=== PATIENT | male | born 1950 | race Caucasian/White ===

== ENCOUNTER 2017-08-02 08:40 | Emergency (ER) | payer MEDICARE ==
[~2017-08-02] VITALS: Ht 177.8 cm; Wt 93.0 kg
[~2017-08-02 08:40] MED LIST: COUM10TA PO; CYCL5TAB PO; HYDR-3533 PO; ZITH250T PO
[2017-08-02 08:42] VITALS: BP 143/73; PULSE 95; RESP 18; TEMP 97.7; O2SAT 95
[2017-08-02] MEDS ORDERED: SODIUM CHLORIDE 0.9% FLUSH 10 ML FLUSH IVF PRN (09:30)
[2017-08-02 09:49] LABS: AUTOMATED NEUTROPHIL # 2.7 TH/MM3 (1.8-7.7); BASOPHIL % 0.8 % (0.0-2.0); EOSINOPHIL # 0.5 TH/MM3 (0-0.4); EOSINOPHIL % 9.4 % (0.0-4.0); HEMATOCRIT 37.5 % (39.0-51.0); HEMO FLAGS DIFF FINAL; LYMPHOCYTE # 1.9 TH/MM3 (1.0-4.8); MEAN CELL VOLUME 116.8 FL (80.0-100.0); MEAN CORPUSCULAR HEMOGLOBIN 41.1 PG (27.0-34.0); MEAN CORPUSCULAR HGB CONC 35.2 % (32.0-36.0); MONO % 10.2 % (0.0-8.0); NEUT % 46.6 % (16.0-70.0); PLATELET COUNT 109 TH/MM3 (150-450); RED BLOOD COUNT 3.21 MIL/MM3 (4.50-5.90); RED CELL DISTRIBUTION WIDTH 16.8 % (11.6-17.2); WHITE BLOOD COUNT 5.8 TH/MM3 (4.0-11.0)
[2017-08-02 09:58] LABS: INTERNATIONAL NORMALIZED RATIO 1.3 RATIO; PROTHROMBIN TIME - PATIENT 14.8 SEC (9.8-11.6)
[2017-08-02 09:59] LABS: APTT (PATIENT) 29.5 SEC (24.3-30.1)
[2017-08-02 10:12] LABS: ANION GAP 7 MEQ/L (5-15); BICARBONATE 25.9 MEQ/L (21.0-32.0); BLOOD UREA NITROGEN 15 MG/DL (7-18); CHLORIDE 104 MEQ/L (98-107); GLOMERULAR FILTRATION RATE 96 ML/MIN (>89); MAGNESIUM 1.8 MG/DL (1.5-2.5); POTASSIUM 3.2 MEQ/L (3.5-5.1); SODIUM (NA) 137 MEQ/L (136-145)
[2017-08-02 10:22] LABS: CREATINE KINASE 49 U/L (39-308)
--- NOTE | 2017-08-02 10:27 | RADRPT ---
EXAM DATE/TIME: 08/02/2017 09:43 [facility] COMPARISON: CT THORAX W/O CONTRAST, December 31, 2014, 7:05. INDICATIONS : Trauma, fall. Left sided chest pain. RADIATION DOSE: 5.10 CTDIvol (mGy) ; Combined studies - Thorax/Abdomen/Pelvis MEDICAL HISTORY : Cardiovascular disease. SURGICAL HISTORY : Cholecystectomy. Stomach stapled. ENCOUNTER: Initial ACUITY: 1 day PAIN SCALE: 4/10 LOCATION: Left chest TECHNIQUE: Volumetric scanning of the chest was performed. Using automated exposure control and adjustment of t he mA and/or kV according to patient size, radiation dose was kept as low as reasonably achievable to obtain optimal diagnostic quality images. DICOM format image data is available electronically for r eview and comparison. Follow-up recommendations for detected pulmonary nodules are based at a minimum on nodule size and pa tient risk factors according to Fleischner Society Guidelines. FINDINGS: LUNGS: Consolidating airspace disease is identified in the right lower lobe. There is elevation of the right hemidiaphragm. Left lung is clear. PLEURAE: Small right pleural effusion. MEDIASTINUM: The heart and great vessels demonstrate no acute abnormality. Mild calcific coronary artery disease i s noted. There is no mediastinal or hilar lymphadenopathy. AXILLAE: Within normal limits. No lymphadenopathy. MUSCULOSKELETAL: Healed right-sided rib fractures are identified. There is no evidence of acute displaced rib fracture . MISCELLANEOUS: The visualized upper abdominal organs demonstrate no acute abnormality. CONCLUSION: 1. Consolidating infiltrate and parapneumonic effusion in the right lower lobe. 2. Old right rib fractures without evidence of acute displaced fracture. 3. Elevation of the right hemidiaphragm. Ricky Love MD on August 02, 2017 at 10:21 Board Certified Radiologist. This report was verified electronically.
--- NOTE | 2017-08-02 10:28 | RADRPT ---
EXAM DATE/TIME: 08/02/2017 09:51 [facility] COMPARISON: No previous studies available for comparison. INDICATIONS : Trauma, fall. Lower left sided back pain. ORAL CONTRAST: No oral contrast ingested. RADIATION DOSE: 5.10 CTDIvol (mGy) ; Combined studies - Thorax/Abdomen/Pelvis MEDICAL HISTORY : Cardiovascular disease. SURGICAL HISTORY : Cholecystectomy. Stomach stapled. ENCOUNTER: Initial ACUITY: 1 day PAIN SCALE: 4/10 LOCATION: Left abdomen/pelvis TECHNIQUE: Volumetric scanning of the abdomen and pelvis was performed. Using automated exposure control and ad justment of the mA and/or kV according to patient size, radiation dose was kept as low as reasonably achievable to obtain optimal diagnostic quality images. DICOM format image data is available electro nically for review and comparison. FINDINGS: LOWER LUNGS: See the CT of the thorax dictated separately. LIVER: Homogeneous density without lesion. There is no dilation of the biliary tree. Gallbladder is surgica lly absent. SPLEEN: Normal size without lesion. PANCREAS: Within normal limits. KIDNEYS: Normal in size and shape. There is no mass, stone, or hydronephrosis. ADRENAL GLANDS: Within normal limits. VASCULAR: There is no aortic aneurysm. BOWEL/MESENTERY: Prior gastric bypass surgery. The stomach, small bowel, and colon demonstrate no acute abnormality. There is no free intraperitoneal air. A trace amount of ascites is seen. ABDOMINAL WALL: Is 6.5 x 2.9 cm soft tissue hematoma seen involving the left posterior hip. Linear calcification seen involving the anterior abdominal wall with a 4.3 x 1.6 cm elliptical high attenuation focus likely r elated to a small hematoma anteriorly as well. RETROPERITONEUM: There is no lymphadenopathy. BLADDER: No wall thickening or mass. REPRODUCTIVE: Within normal limits. INGUINAL: Bilateral inguinal hernias containing fat. A small amount of fluid is seen within the right inguinal hernia. MUSCULOSKELETAL: Within normal limits for patient age. Old right-sided inferior fractures. A degenerative spine. CONCLUSION: 1. See the CT of the thorax dictated separately. 2. Soft tissue hematomas involve left posterior hip and anterior bowel wall. 3. Prior gastric bypass. 4. Trace amount of ascites. 5. Prior cholecystectomy. 6. Bilateral inguinal hernias. Myles Hernandez Jr., MD on August 02, 2017 at 10:21 Board Certified Radiologist. This report was verified electronically.
[2017-08-02] MEDS ORDERED: cefTRIAXone INJ 1,000 MG in SODIUM CHLORIDE 0.9% INJ 100 ML IV ONE (10:45)
[2017-08-02] MEDS ORDERED: AZITHROMYCIN INJ 500 MG in SODIUM CHLOR 0.9% 250 ML INJ 250 ML IV ONE (10:45)
[2017-08-02] MEDS ORDERED: POTASSIUM CHLORIDE 20 MEQ CONTROLLED RELEASE TAB PO ONE (11:00)
[2017-08-02 11:49] VITALS: BP 122/65; PULSE 87; RESP 18; O2SAT 97
[2017-08-02] MEDS ORDERED: LEVA500T20 PO (12:23)
--- NOTE | 2017-08-02 12:23 | PD ---
HPI Chief Complaint: Edema Time Seen by Provider: 09:18 Travel History International Travel<30 days: No Contact w/Intl Traveler<30days: No Traveled to known affect area: No History of Present Illness HPI 66-year-old male came to the emergency room with history of lower back pain and bilateral feet pain after a trip and fall 2-3 days ago. Patient says he was walking on the sidewalk and there was a hole that he did not notice and his foot got caught and he tripped and fell. He did not make much of it at that time. The next morning when he woke up he noticed bruising on his left buttock area. Since then the pain has been worsening. He has been having difficulty ambulating because of this. No history of syncopal episode. Pain is worse upon movement and ambulation. He has had bilateral pedal edema for past 1 month. In fact he was in the emergency room at [facility] where blood tests were done and he was given a dose of Lasix. He was discharged home to follow up with a primary care but he could not. Patient says after the Lasix the swelling got better but then came back again. No history of shortness of breath. Vital signs are stable. Patient has been taking Advil at home for the pain. [facility] Past Medical History Narrative Medical List of his past medical, surgical, social and family history is reviewed from the nursing note. Atrial Fibrillation: Yes Heart Rhythm Problems: Yes (AFIB, FAST HEART RATE) Cardiovascular Problems: Yes Diminished Hearing: No Immunizations Current: Yes Tetanus Vaccination: > 5 Years Influenza Vaccination: No Past Surgical History Abdominal Surgery: Yes ("STOMACH STAPLED") Cholecystectomy: Yes Other Surgery: Yes (RIGHT THUMB AMPUTATED) Social History Alcohol Use: Yes (DAILY) Tobacco Use: No Substance Use: No Allergies-Medications (Allergen,Severity, Reaction): Coded Allergies: No Known Allergies (Unverified , 08/02/17) Comments No known drug allergies. Reported Meds & Prescriptions Reported Meds & Active Scripts Active Medical Compression Elastic Stockings 1 Mis Mis Ea .ROUTE DIRECTED Wear the stockings at all times especially when you a sitting or walking Levaquin (Levofloxacin) 500 Mg Tablet 500 Mg PO DAILY Narrative Medication List of his home medications reviewed from the nursing note. Review of Systems Except as stated in HPI: all other systems reviewed are Neg Musculoskeletal: Positive: Myalgias, Arthralgias, Pain Skin: Positive Other (ecchymosis) Physical Exam Narrative GENERAL: Awake, alert, moderate distress SKIN: Focused skin assessment warm/dry. Pale. Large ecchymosis on the left buttock area HEAD: Atraumatic. Normocephalic. EYES: Pupils equal and round. No scleral icterus. No injection or drainage. ENT: No nasal bleeding or discharge. Mucous membranes pink and moist. NECK: Trachea midline. No JVD. CARDIOVASCULAR: Regular rate and rhythm. No murmur appreciated. RESPIRATORY: No accessory muscle use. Clear to auscultation. Breath sounds equal bilaterally. GASTROINTESTINAL: Abdomen soft, non-tender, nondistended. Hepatic and splenic margins not palpable. MUSCULOSKELETAL: No obvious deformities. No clubbing. No cyanosis. Bilateral 3 + pedal edema. Tenderness in the thoracic and lumbar spine diffusely. Full range of motion at all the joints. NEUROLOGICAL: Awake and alert. No obvious cranial nerve deficits. Motor grossly within normal limits. Normal speech. PSYCHIATRIC: Appropriate mood and affect; insight and judgment normal. Data Data Last Documented VS Vital Signs Date Time Temp Pulse Resp B/P (MAP) Pulse Ox O2 Delivery O2 Flow Rate FiO2 08/02/17 13:27 08/02/17 11:49 87 18 97 Room Air 08/02/17 08:42 97.7 Orders Orders Electrocardiogram (08/02/17 09:18) Basic Metabolic Panel (Bmp) (08/02/17 09:18) B-Type Natriuretic Peptide (08/02/17:18) Ckmb (Isoenzyme) Profile (08/02/17:18) Complete Blood Count With Diff (08/02/17:18) Magnesium (Mg) (08/02/17:18) Prothrombin Time / Inr (Pt) (08/02/17:18) Act Partial Throm Time (Ptt) (08/02/17:18) Troponin I (08/02/17:18) Ecg Monitoring (08/02/17:18) Bilateral Bp Monitoring (08/02/17:18) Iv Access Insert/Monitor (08/02/17:18) Oximetry (08/02/17:18) Oxygen Administration (08/02/17:18) Sodium Chloride 0.9% Flush (Ns Flush) (08/02/17 09:30) Ct Thorax/ Chest Wo Iv Contras (08/02/17 ) Ct Abd/Pel W/O Iv Contrast (08/02/17 ) Creatine Kinase (Cpk) (08/02/17 09:18) Ceftriaxone Inj (Rocephin Inj) (08/02/17 10:45) Azithromycin Inj (Zithromax Inj) (08/02/17 10:45) Potassium Chloride (Kcl) (08/02/17 11:00) Ed Discharge Order (08/02/17 12:24) Labs Laboratory Tests Test 08/02/17 09:24 White Blood Count 5.8 TH/MM3 Red Blood Count 3.21 MIL/MM3 Hemoglobin 13.2 GM/DL Hematocrit 37.5 % Mean Corpuscular Volume 116.8 FL Mean Corpuscular Hemoglobin 41.1 PG Mean Corpuscular Hemoglobin Concent 35.2 % Red Cell Distribution Width 16.8 % Platelet Count 109 TH/MM3 Mean Platelet Volume 7.8 FL Neutrophils (%) (Auto) 46.6 % Lymphocytes (%) (Auto) 33.0 % Monocytes (%) (Auto) 10.2 % Eosinophils (%) (Auto) 9.4 % Basophils (%) (Auto) 0.8 % Neutrophils # (Auto) 2.7 TH/MM3 Lymphocytes # (Auto) 1.9 TH/MM3 Monocytes # (Auto) 0.6 TH/MM3 Eosinophils # (Auto) 0.5 TH/MM3 Basophils # (Auto) 0.0 TH/MM3 CBC Comment DIFF FINAL Differential Comment Prothrombin Time 14.8 SEC Prothromb Time International Ratio 1.3 RATIO Activated Partial Thromboplast Time 29.5 SEC Blood Urea Nitrogen 15 MG/DL Creatinine 0.80 MG/DL Random Glucose 101 MG/DL Calcium Level 8.6 MG/DL Magnesium Level 1.8 MG/DL Sodium Level 137 MEQ/L Potassium Level 3.2 MEQ/L Chloride Level 104 MEQ/L Carbon Dioxide Level 25.9 MEQ/L Anion Gap 7 MEQ/L Estimat Glomerular Filtration Rate 96 ML/MIN Total Creatine Kinase 49 U/L Troponin I LESS THAN 0.02 NG/ML B-Type Natriuretic Peptide 86 PG/ML MDM Medical Decision Making Medical Screen Exam Complete: Yes Emergency Medical Condition: Yes Medical Record Reviewed: Yes Interpretation(s) Twelve-lead EKG was reviewed by . Normal sinus rhythm, normal axis, nonspecific ST-T wave changes. Heart rate of 87 bpm. Differential Diagnosis Congestive heart failure, ACS, thoracic compression fracture, lumbar compression fracture Narrative Course 12:20 PM blood test results of back and within acceptable limit. I had ordered a CT scan of his chest and abdomen and pelvis to look for any fractures or any other abnormalities. The chest shows a right lower lobe infiltrate with some parapneumonic effusion as per the radiologist. Patient does not have any acute fractures. There is some old rib fracture. I've given him a dose of Rocephin and Zithromax. Given the fact the patient is afebrile, oxygen saturation within normal limits and does not appear to be in any significant respiratory distress him comfortable starting him home on prescription medication. He needs to follow up with a primary care. 12:29 PM there was a copy of his chart faxed from [facility] from his visit about one month ago. They had done a chest x-ray and CT pulmonary angiogram among other blood test. Chest x-ray and CT did not show any infiltrate or effusion at that time. Patient's platelet count at that time was 69,000 which has improved today. They had asked him to follow up with a primary care physician. Procedures EKG Prior to Arrival: No Diagnosis Primary Impression: Pneumonia Qualified Codes: J18.1 - Lobar pneumonia, unspecified organism Additional Impressions: Pleural effusion Pedal edema Fall Qualified Codes: W19.XXXA - Unspecified fall, initial encounter Ecchymosis Thrombocytopenia Referrals: Primary Care Physician 3 days Additional Instructions: Please return to the ER if the condition worsens or any other new concerns. Otherwise follow-up with a primary care. Take the medication as per the prescription direction. Med/Other Pt SpecificInfo: Prescription(s) given Scripts Medical Compression Elastic Stockings (Medical Compression Elastic Stockings) 1 Mis Mis EA .ROUTE DIRECTED, #1 Wear the stockings at all times especially when you a sitting or walking Prov: Laureen Holliday MD 08/02/17 Levofloxacin (Levaquin) 500 Mg Tablet 500 MG PO DAILY for Infection, #10 TAB 0 Refills Prov: Laureen Holliday MD 08/02/17 Disposition: 01 DISCHARGE HOME Condition: Stable Laureen Holliday R. MD Aug 02, 2017 12:23
[2017-08-02] MEDS ORDERED: MEDICAL COMPRES1 MIS (12:34)
--- NOTE | 2017-08-02 14:56 | EKG ---
Date Performed: 08/02/2017 Time Performed: 09:40:01 PTAGE: 66 years EKG: Sinus rhythm NORMAL ECG PREVIOUS TRACING : 08/02/2017 08.53 No significant change from previous tracing noted. DOCTOR: Jesus Milner Interpretating Date/Time 08/02/2017 14:55:17
== END 2017-08-02 13:38 | disposition home or self-care (01) ==
LOC: NEPC 08:40
DX: J18.1 Lobar pneumonia, unspecified organism (principal); J90 Pleural effusion, not elsewhere classified; R60.0 Localized edema; M54.5 Low back pain; I48.91 Unspecified atrial fibrillation; W01.0XXA Fall on same level from slipping, tripping and stumbling without subsequent striking against object, initial encounter
CPT/HCPCS: 71250; 74176; 80048; 82550; 83735; 83880; 84484; 85025; 85610; 85730; 93005; 96374; 96375; 99285; J0456; J0696; J7050

== ENCOUNTER 2017-10-01 16:37 | Inpatient (IN) | payer MEDICARE ==
[~2017-10-01 16:37] MED LIST changes: -COUM10TA PO; -CYCL5TAB PO; +FURO40TA PO; -HYDR-3533 PO; +PANT40TA3 PO; +POTA20TA5 PO; -ZITH250T PO
[2017-10-01 18:56] VITALS: PULSE 80; RESP 18; TEMP 97.9; O2SAT 99
[2017-10-01 19:28] VITALS: BP 120/80; PULSE 80; RESP 18; O2SAT 99
--- NOTE | 2017-10-01 19:36 | RADRPT ---
EXAM DATE/TIME: 10/01/2017 19:20 [facility] COMPARISON: CHEST SINGLE AP, August 19, 2017, 12:25. INDICATIONS : Palpitations. General weakness. MEDICAL HISTORY : Cardiovascular disease. Pneumonia SURGICAL HISTORY : Cholecystectomy. Stomach stapled. ENCOUNTER: Initial ACUITY: 1 day PAIN SCORE: 0/10 LOCATION: Bilateral chest FINDINGS: A single view of the chest demonstrates elevated right hemidiaphragm. Mild basilar atelectasis. No ef fusion. No pneumothorax. Heart size within normal limits. CONCLUSION: 1. No acute findings. Stable elevated right hemidiaphragm compared with August 19. Lino Wright MD on October 01, 2017 at 19:34 Board Certified Radiologist. This report was verified electronically.
--- NOTE | 2017-10-01 19:51 | PD ---
HPI Chief Complaint: General Weakness Time Seen by Provider: 19:48 Travel History International Travel<30 days: No Contact w/Intl Traveler<30days: No Traveled to known affect area: No History of Present Illness HPI 66-year-old male with history of A. fib, remote TBI, presents emergency department today for evaluation of generalized weakness. Patient states that about a week ago he began having generalized weakness. He has felt flulike with nausea and vomiting one time. He states he has noticed that his gait has been unsteady and he tends to walk to the right when he is ambulatory. Denies any chest or tightness. No difficulty breathing. Patient denies any head trauma. No recent fever or chills. No abdominal pain. He has no other symptoms to report. PFSH Past Medical History Arthritis: Yes Asthma: No Atrial Fibrillation: Yes Anxiety: No Depression: No Heart Rhythm Problems: Yes (atrial fibrillation ) Cancer: No Cardiovascular Problems: No High Cholesterol: No Chemotherapy: No Chest Pain: No Congestive Heart Failure: No COPD: No Cerebrovascular Accident: No Diabetes: No Diminished Hearing: No Endocrine: No Hiatal Hernia: Yes Kidney Stones: No Musculoskeletal: No Neurologic: No Psychiatric: No Reproductive: No Respiratory: No Immunizations Current: Yes Migraines: No Radiation Therapy: No Renal Failure: No Seizures: No Sickle Cell Disease: No Sleep Apnea: No Thyroid Disease: No Ulcer: No ?: Not Past Surgical History AICD: No Arteriovenous Shunt: No Cardiac Surgery: No Cholecystectomy: Yes Ear Surgery: No Endocrine Surgery: No Eye Surgery: No Genitourinary Surgery: No Gynecologic Surgery: No Insulin Pump: No Joint Replacement: No Oral Surgery: No Pacemaker: No Thoracic Surgery: No Other Surgery: Yes (RIGHT THUMB AMPUTATED) Social History Alcohol Use: Yes (DAILY) Tobacco Use: No Substance Use: No Allergies-Medications (Allergen,Severity, Reaction): Coded Allergies: No Known Allergies (Unverified Adverse Reaction, Unknown, 10/01/17) Reported Meds & Prescriptions Reported Meds & Active Scripts Active Pantoprazole (Pantoprazole Sodium) 40 Mg Tab 40 Mg PO DAILY Potassium Chloride Microencaps 20 Meq Tab 20 Meq PO BID 30 Days Furosemide 40 Mg Tab 40 Mg PO BID 30 Days Review of Systems Except as stated in HPI: all other systems reviewed are Neg Physical Exam Narrative GENERAL: Well-nourished male patient, lying in bed in no acute distress. SKIN: Focused skin assessment warm/dry. HEAD: Atraumatic. Normocephalic. EYES: Pupils equal and round. No scleral icterus. No injection or drainage. ENT: No nasal bleeding or discharge. Mucous membranes pink and moist. NECK: Trachea midline. No JVD. CARDIOVASCULAR: Regular rate and irregular rhythm. RESPIRATORY: No accessory muscle use. Clear to auscultation. Breath sounds equal bilaterally. GASTROINTESTINAL: Abdomen soft, non-tender, nondistended. Hepatic and splenic margins not palpable. MUSCULOSKELETAL: No obvious deformities. No clubbing. No cyanosis. No edema. NEUROLOGICAL: Awake and alert. No obvious cranial nerve deficits. She does move all extremities however there is a 4 out of 5 strength in the left upper extremity compared to the right is a 5 out of 5 and a 3 out of 5 strength in the left lower extremity compared to 5 out of 5 right lower extremity. Normal speech. PSYCHIATRIC: Appropriate mood and affect; insight and judgment normal. Data Data Last Documented VS Vital Signs Date Time Temp Pulse Resp B/P (MAP) Pulse Ox O2 Delivery O2 Flow Rate FiO2 10/01/17 19:28 80 18 120/80 (93) 99 Room Air 10/01/17 18:56 97.9 Orders Orders Electrocardiogram (10/01/17 19:12) Basic Metabolic Panel (Bmp) (10/01/17 19:12) Complete Blood Count With Diff (10/01/17 19:12) Urinalysis - C+S If Indicated (10/01/17 19:12) Chest, Single Ap (10/01/17 19:12) Ecg Monitoring (10/01/17 19:12) Iv Access Insert/Monitor (10/01/17 19:12) Oximetry (10/01/17 19:12) Magnesium (Mg) (10/01/17 19:46) B-Type Natriuretic Peptide (10/01/17 19:46) Ckmb (Isoenzyme) Profile (10/01/17 19:46) Troponin I (10/01/17 19:46) Act Partial Throm Time (Ptt) (10/01/17 19:46) Prothrombin Time / Inr (Pt) (10/01/17 19:46) Ct Brain W/O Iv Contrast(Rout) (10/01/17 19:46) [facility] Medical Decision Making Medical Screen Exam Complete: Yes Emergency Medical Condition: Yes Medical Record Reviewed: Yes Differential Diagnosis CVA versus TIA versus ICH versus influenza versus viral syndrome versus electro- lyte abnormality versus UTI Narrative Course 66-year-old male presents to emergency department for evaluation of generalized weakness. Patient has symptoms ongoing for a week and on exam there is weakness in the left upper and lower extremities. Workup is initiated in the triage ambulance hallway. Once a medical bed becomes available, patient will be transferred and care assumed by that provider. Condition: Stable Aure Dallas Oct 01, 2017 19:51
--- NOTE | 2017-10-01 20:17 | RADRPT ---
EXAM DATE/TIME: 10/01/2017 19:57 [facility] COMPARISON: No previous studies available for comparison. INDICATIONS : Dizziness today. RADIATION DOSE: 56.35 CTDIvol (mGy) MEDICAL HISTORY : Cardiovascular disease. traumatic brain injury SURGICAL HISTORY : Cholecystectomy. ENCOUNTER: Initial ACUITY: 1 day PAIN SCALE: 0/10 LOCATION: Bilateral head TECHNIQUE: Multiple contiguous axial images were obtained of the head. Using automated exposure control and adj ustment of the mA and/or kV according to patient size, radiation dose was kept as low as reasonably a chievable to obtain optimal diagnostic quality images. DICOM format image data is available electro nically for review and comparison. FINDINGS: CEREBRUM: The ventricles are normal for age. No evidence of midline shift, mass lesion, hemorrhage or acute in farction. No extra-axial fluid collections are seen. POSTERIOR FOSSA: The cerebellum and brainstem are intact. The 4th ventricle is midline. The cerebellopontine angle i s unremarkable. EXTRACRANIAL: The visualized portion of the orbits is intact. SKULL: The calvaria is intact. No evidence of skull fracture. CONCLUSION: 1. No acute intracranial abnormalities. Mild white matter ischemic changes. Plate and screw fixation anterior wall frontal sinus. Lino Wright MD on October 01, 2017 at 20:13 Board Certified Radiologist. This report was verified electronically.
--- NOTE | 2017-10-01 20:25 | PD ---
HPI Chief Complaint: General Weakness Time Seen by Provider: 20:24 Travel History International Travel<30 days: No Contact w/Intl Traveler<30days: No Traveled to known affect area: No History of Present Illness HPI Patient care was assumed from Aure MEHTA at 2030. Patient is a 66-year- old male presents emergency department for vague evaluation weakness gradually worsening over the past week and a half. He tells me that he's not been able to walk majority of this week and a half, states that his girlfriend has been helping him to the bathroom. Patient denies any fevers, nausea vomiting, chest pain. He does endorse some mild shortness of breath. States the symptoms a never happened before. No history of blood thinner use, states he was told he had atrial fibrillation in the past. No history of strokes or heart attacks. He states he is on Lasix. [facility] Past Medical History Arthritis: Yes Asthma: No Atrial Fibrillation: Yes Anxiety: No Depression: No Heart Rhythm Problems: Yes (atrial fibrillation ) Cancer: No Cardiovascular Problems: No High Cholesterol: No Chemotherapy: No Chest Pain: No Congestive Heart Failure: No COPD: No Cerebrovascular Accident: No Diabetes: No Diminished Hearing: No Endocrine: No Hiatal Hernia: Yes Kidney Stones: No Musculoskeletal: No Neurologic: No Psychiatric: No Reproductive: No Respiratory: No Immunizations Current: Yes Migraines: No Radiation Therapy: No Renal Failure: No Seizures: No Sickle Cell Disease: No Sleep Apnea: No Thyroid Disease: No Ulcer: No ?: Not Past Surgical History AICD: No Arteriovenous Shunt: No Cardiac Surgery: No Cholecystectomy: Yes Ear Surgery: No Endocrine Surgery: No Eye Surgery: No Genitourinary Surgery: No Gynecologic Surgery: No Insulin Pump: No Joint Replacement: No Oral Surgery: No Pacemaker: No Thoracic Surgery: No Other Surgery: Yes (RIGHT THUMB AMPUTATED) Social History Alcohol Use: Yes (DAILY) Tobacco Use: No Substance Use: No Allergies-Medications (Allergen,Severity, Reaction): Coded Allergies: No Known Allergies (Unverified Allergy, Unknown, 10/01/17) Reported Meds & Prescriptions Reported Meds & Active Scripts Active Pantoprazole (Pantoprazole Sodium) 40 Mg Tab 40 Mg PO DAILY Potassium Chloride Microencaps 20 Meq Tab 20 Meq PO BID 30 Days Furosemide 40 Mg Tab 40 Mg PO BID 30 Days Review of Systems Except as stated in HPI: all other systems reviewed are Neg Physical Exam Narrative GENERAL: Well-developed well-nourished, stuttering speech in no distress. SKIN: Focused skin assessment warm/dry. HEAD: Atraumatic. Normocephalic. EYES: Pupils equal and round. No scleral icterus. No injection or drainage. ENT: No nasal bleeding or discharge. Mucous membranes pink and moist. NECK: Trachea midline. No JVD. CARDIOVASCULAR: Regular rate and rhythm. No murmur appreciated. RESPIRATORY: No accessory muscle use. Clear to auscultation. Breath sounds equal bilaterally. GASTROINTESTINAL: Abdomen soft, non-tender, nondistended. Hepatic and splenic margins not palpable. MUSCULOSKELETAL: No obvious deformities. No clubbing. No cyanosis. No edema. NEUROLOGICAL: Awake and alert and oriented, mild tremor noted throughout all 4 extremities. Patient perhaps has slightly decreased strength on the left when compared to the right. This is upper and lower extremities. At least 4 out of 5 strength in electric organ assembler and plantar flexion. 5 out of 5 on the right upper and right lower extremity. Cranial nerves II through XII are grossly intact nonfocal. PSYCHIATRIC: Appropriate mood and affect; insight and judgment normal. Data Data Last Documented VS Vital Signs Date Time Temp Pulse Resp B/P (MAP) Pulse Ox O2 Delivery O2 Flow Rate FiO2 10/01/17 20:47 89 16 136/71 (92) 98 Room Air 10/01/17 18:56 97.9 Orders Orders Electrocardiogram (10/01/17 19:12) Complete Blood Count With Diff (10/01/17 19:12) Urinalysis - C+S If Indicated (10/01/17 19:12) Chest, Single Ap (10/01/17 19:12) Ecg Monitoring (10/01/17 19:12) Iv Access Insert/Monitor (10/01/17 19:12) Oximetry (10/01/17 19:12) Magnesium (Mg) (10/01/17 19:46) B-Type Natriuretic Peptide (10/01/17 19:46) Ckmb (Isoenzyme) Profile (10/01/17 19:46) Troponin I (10/01/17 19:46) Act Partial Throm Time (Ptt) (10/01/17 19:46) Prothrombin Time / Inr (Pt) (10/01/17 19:46) Ct Brain W/O Iv Contrast(Rout) (10/01/17 19:46) Basic Metabolic Panel (Bmp) (10/01/17 20:35) Urine Culture (10/01/17 20:35) Protein Corrected Calcium(Pcc) (10/01/17 20:35) Sodium Chlorid 0.9% 500 Ml Inj (Ns 500 M (10/01/17 21:45) Calcium Gluconate Inj (Calcium Gluconate (10/01/17 21:45) Cephalexin (Keflex) (10/01/17 21:45) Hepatic Functional Panel (10/01/17 20:35) Admit Order (Ed Use Only) (10/01/17 ) Labs Laboratory Tests Test 10/01/17 20:35 White Blood Count 5.3 TH/MM3 Red Blood Count 2.57 MIL/MM3 Hemoglobin 10.6 GM/DL Hematocrit 30.3 % Mean Corpuscular Volume 118.3 FL Mean Corpuscular Hemoglobin 41.4 PG Mean Corpuscular Hemoglobin Concent 35.0 % Red Cell Distribution Width 16.3 % Platelet Count 75 TH/MM3 Mean Platelet Volume 7.9 FL Neutrophils (%) (Auto) 26.1 % Lymphocytes (%) (Auto) 56.5 % Monocytes (%) (Auto) 9.8 % Eosinophils (%) (Auto) 6.9 % Basophils (%) (Auto) 0.7 % Neutrophils # (Auto) 1.4 TH/MM3 Lymphocytes # (Auto) 3.0 TH/MM3 Monocytes # (Auto) 0.5 TH/MM3 Eosinophils # (Auto) 0.4 TH/MM3 Basophils # (Auto) 0.0 TH/MM3 CBC Comment AUTO DIFF Differential Comment AUTO DIFF CONFIRMED Platelet Estimate LOW Platelet Morphology Comment NORMAL Prothrombin Time 18.7 SEC Prothromb Time International Ratio 1.8 RATIO Activated Partial Thromboplast Time 31.5 SEC Urine Color ORANGE Urine Turbidity HAZY Urine pH 5.5 Urine Specific [place] 1.028 Urine Protein 30 mg/dL Urine Glucose (UA) NEG mg/dL Urine Ketones TRACE mg/dL Urine Occult Blood SMALL Urine Nitrite NEG Urine Bilirubin SMALL Urine Urobilinogen 2.0 MG/DL Urine Leukocyte Esterase LARGE Urine RBC 4 /hpf Urine WBC /hpf Urine Squamous Epithelial Cells 2 /hpf Urine Bacteria RARE /hpf Urine Hyaline Casts 10 /lpf Urine Mucus MANY /lpf Microscopic Urinalysis Comment CULTURE INDICATED Blood Urea Nitrogen 11 MG/DL Creatinine 0.80 MG/DL Random Glucose 80 MG/DL Total Protein 6.8 GM/DL Albumin 1.6 GM/DL Calcium Level 7.2 MG/DL Magnesium Level 1.4 MG/DL Alkaline Phosphatase 76 U/L Aspartate Amino Transf (AST/SGOT) 42 U/L Alanine Aminotransferase (ALT/SGPT) 13 U/L Total Bilirubin 3.7 MG/DL Direct Bilirubin 2.0 MG/DL Sodium Level 144 MEQ/L Potassium Level 3.3 MEQ/L Chloride Level 114 MEQ/L Carbon Dioxide Level 22.9 MEQ/L Anion Gap 7 MEQ/L Estimat Glomerular Filtration Rate 96 ML/MIN Protein Corrected Calcium 7.4 MG/DL Indirect Bilirubin 1.7 MG/DL Total Creatine Kinase 44 U/L Troponin I 0.02 NG/ML B-Type Natriuretic Peptide 121 PG/ML [facility] Medical Decision Making Medical Screen Exam Complete: Yes Emergency Medical Condition: Yes Interpretation(s) EKG shows normal sinus rhythm normal axis normal R-wave progression. No concerning ST segment changes. Intervals are within normal limits. This normal EKG. Differential Diagnosis Electrolyte abnormality, acute CVA, intracranial hemorrhage, dehydration, failure to thrive, multiple sclerosis. Narrative Course Patient roomed in emergency department, on physical findings of minimal tremor as well as left-sided weakness. Initial labs show hypocalcemia patient received 2 g calcium. Also found to have evidence for urinary tract infection, CT head shows multiple prior infarcts which are small but nothing acute. Still with his neurologic findings. Recommended to him in observation status for probable TIA versus stroke workup, he is agreeable. Patient was discussed with Dr. Mccartney who is agreeable. Diagnosis Primary Impression: Left-sided weakness Additional Impressions: Hypocalcemia Inability to ambulate due to left ankle or foot Admitting Information Admitting Physician Requests: Observation Condition: Stable Tanvir Copeland MD Oct 01, 2017 20:25
[2017-10-01 20:47] VITALS: BP 136/71; PULSE 89; RESP 16; O2SAT 98
[2017-10-01 21:07] LABS: AUTOMATED NEUTROPHIL # 1.4 TH/MM3 (1.8-7.7); BASOPHIL % 0.7 % (0.0-2.0); EOSINOPHIL # 0.4 TH/MM3 (0-0.4); EOSINOPHIL % 6.9 % (0.0-4.0); HEMATOCRIT 30.3 % (39.0-51.0); LYMPH % 56.5 % (9.0-44.0); MEAN CELL VOLUME 118.3 FL (80.0-100.0); MEAN CORPUSCULAR HEMOGLOBIN 41.4 PG (27.0-34.0); MONO % 9.8 % (0.0-8.0); NEUT % 26.1 % (16.0-70.0); PLATELET COUNT 75 TH/MM3 (150-450); RED BLOOD COUNT 2.57 MIL/MM3 (4.50-5.90); RED CELL DISTRIBUTION WIDTH 16.3 % (11.6-17.2); WHITE BLOOD COUNT 5.3 TH/MM3 (4.0-11.0)
[2017-10-01 21:10] LABS: HEMO FLAGS AUTO DIFF
[2017-10-01 21:17] LABS: BACTERIA, URINE RARE /hpf; BLOOD, URINE SMALL (NEG); COMMENT (UR) CULTURE INDICATED; CULTURE IF INDICATED CULTURE INDICATED; GLUCOSE,URINE NEG (NEG); HYALINE CAST, URINE 10 /lpf (RARE); KETONE, URINE TRACE mg/dL (NEG); MUCUS URINE MANY /lpf (OCC); NITRITE,URINE NEG (NEG); PH, URINE 5.5 (5.0-8.5); SQUAMOUS EPITHELIAL CELL URINE 2 /hpf (0-5); URINE COLOR ORANGE (YELLW/STRAW)
[2017-10-01 21:22] LABS: APTT (PATIENT) 31.5 SEC (24.3-30.1); INTERNATIONAL NORMALIZED RATIO 1.8 RATIO; PROTHROMBIN TIME - PATIENT 18.7 SEC (9.8-11.6)
[2017-10-01 21:25] LABS: BICARBONATE 22.9 MEQ/L (21.0-32.0); MAGNESIUM 1.4 MG/DL (1.5-2.5); POTASSIUM 3.3 MEQ/L (3.5-5.1)
[2017-10-01 21:41] LABS: CALCIUM-PROTEIN CORRECTED 7.4 MG/DL (8.5-10.1)
[2017-10-01 21:42] LABS: PLATELET ESTIMATE SMEAR LOW (NORMAL); PLATELET MORPHOLOGY NORMAL (NORMAL); SCAN/DIFF AUTO DIFF CONFIRMED
[2017-10-01] MEDS ORDERED: CEPHALEXIN MONOHYDRATE 500 MG CAP PO ONE (21:45)
[2017-10-01] MEDS ORDERED: SODIUM CHLORID 0.9% 500 ML INJ 500 ML IV ONE (21:45)
[2017-10-01] MEDS ORDERED: CALCIUM GLUCONATE INJ 2 GM in DEXTROSE 5% IN WATER 100ML INJ 100 ML IV ONE ×2 (21:45)
[2017-10-01 22:17] LABS: INDIRECT BILIRUBIN 1.7 MG/DL (0.0-0.8); TOTAL BILIRUBIN ADULT 3.7 MG/DL (0.2-1.0)
[2017-10-01] MEDS ORDERED: SODIUM CHLORIDE 0.9% FLUSH 10 ML FLUSH IV FLUSH PRN (23:30)
[2017-10-01] MEDS ORDERED: POTASSIUM CHLOR 20 MEQ PREMIX 100 ML IV ONE (23:30)
[2017-10-01] MEDS ORDERED: MAGNESIUM SULFATE 1 GM PREMIX 100 ML IV ONE (23:30)
[2017-10-01] MEDS ORDERED: GLUCAGON 1 MG/ML VIAL OTHER PRN (23:30)
[2017-10-01] MEDS ORDERED: DEXTROSE 50% IN WATER 50 ML VIAL(D50) IV PUSH PRN (23:30)
[2017-10-01] MEDS ORDERED: ASPIRIN 81 MG CHEW TAB CHEW ONE (23:30)
[2017-10-02] VITALS (13 sets, daily range): BP systolic 101–136; BP diastolic 54–93; PULSE 81–93; RESP 12–18; TEMP 96.2–98.4; O2SAT 95–99
--- NOTE | 2017-10-02 00:57 | HHI.HP ---
[facility] Physician No Primary Care Physician Admission Diagnosis TIA vs AMS, Hypocalcemia Diagnoses: Travel History International Travel<30 Days: No Contact w/Intl Traveler <30 Da: No Traveled to Known Affected Are: No History of Present Illness 66-year-old male with a remote history of A. fib and DVT presents to the emergency department for evaluation of generalized weakness. The patient is an extremely poor historian and denies having any medical problems except for a condition for which he takes "a water pill." He states he's been having difficulty ambulating for approximately 2 weeks. He has accompanying generalized weakness. He endorses 1 episode of nausea/emesis but cannot tell me when that occurred. He denies any chest pain or shortness of breath. He has left hand laboratory analyst weakness and possible left-sided facial droop. Electrolytes significant for potassium of 3.3 and a corrected calcium of 7.4. UA consistent with urinary tract infection. Review of Systems Denies fever or chills Denies blurry vision, otorrhea, rhinorrhea Denies sore throat and cough No chest pain, palpitations, shortness of breath No abdominal pain Denies constipation/diarrhea. Positive nausea/vomiting Positive weakness No rashes Past Family Social History Past Medical History Remote history of atrial fibrillation, not on any treatment at this time History of DVT 9 years ago Past Surgical History Cholecystectomy Gastric bypass Reported Medications Reported Meds & Active Scripts Active Pantoprazole (Pantoprazole Sodium) 40 Mg Tab 40 Mg PO DAILY Potassium Chloride Microencaps 20 Meq Tab 20 Meq PO BID 30 Days Furosemide 40 Mg Tab 40 Mg PO BID 30 Days Allergies: Coded Allergies: No Known Allergies (Unverified Allergy, Unknown, 10/01/17) Family History No family history of DM/CAD Social History Denies smoking and illicit drugs. Drinks approximately 1 pint of alcohol daily Physical Exam Vital Signs Vital Signs Date Time Temp Pulse Resp B/P (MAP) Pulse Ox O2 Delivery O2 Flow Rate FiO2 10/02/17 00:07 83 14 125/93 (104) 97 Room Air 10/01/17 20:47 89 16 136/71 (92) 98 Room Air 10/01/17 19:28 80 18 120/80 (93) 99 Room Air 10/01/17 18:56 97.9 80 18 99 Physical Exam GENERAL: male lying in bed SKIN: No rashes, ecchymoses or lesions. Cool and dry. HEAD: Atraumatic. Normocephalic. No temporal or scalp tenderness. EYES: Pupils equal round and reactive. Extraocular motions intact. No scleral icterus. No injection or drainage. ENT: Nose without bleeding, purulent drainage or septal hematoma. Throat without erythema, tonsillar hypertrophy or exudate. Uvula midline. Airway patent. NECK: Trachea midline. No JVD or lymphadenopathy. Supple, nontender, no meningeal signs. CARDIOVASCULAR: Regular rate and rhythm without murmurs, gallops, or rubs. RESPIRATORY: Clear to auscultation. Breath sounds equal bilaterally. No wheezes , rales, or rhonchi. GASTROINTESTINAL: Abdomen soft, non-tender, nondistended. No hepato-splenomegaly , or palpable masses. No guarding. MUSCULOSKELETAL: Extremities without clubbing, cyanosis, or edema. No joint tenderness, effusion, or edema noted. No calf tenderness. NEUROLOGICAL: Mild left-sided facial droop most prominent at the lips. 3/5 left hand laboratory analyst strength. Remainder of strength 5/5. Laboratory Laboratory Tests Test 10/01/17 20:35 White Blood Count 5.3 Red Blood Count 2.57 Hemoglobin 10.6 Hematocrit 30.3 Mean Corpuscular Volume 118.3 Mean Corpuscular Hemoglobin 41.4 Mean Corpuscular Hemoglobin Concent 35.0 Red Cell Distribution Width 16.3 Platelet Count 75 Mean Platelet Volume 7.9 Neutrophils (%) (Auto) 26.1 Lymphocytes (%) (Auto) 56.5 Monocytes (%) (Auto) 9.8 Eosinophils (%) (Auto) 6.9 Basophils (%) (Auto) 0.7 Neutrophils # (Auto) 1.4 Lymphocytes # (Auto) 3.0 Monocytes # (Auto) 0.5 Eosinophils # (Auto) 0.4 Basophils # (Auto) 0.0 CBC Comment AUTO DIFF Differential Comment AUTO DIFF CONFIRMED Platelet Estimate LOW Platelet Morphology Comment NORMAL Prothrombin Time 18.7 Prothromb Time International Ratio 1.8 Activated Partial Thromboplast Time 31.5 Urine Color ORANGE Urine Turbidity HAZY Urine pH 5.5 Urine Specific [place] 1.028 Urine Protein 30 Urine Glucose (UA) NEG Urine Ketones TRACE Urine Occult Blood SMALL Urine Nitrite NEG Urine Bilirubin SMALL Urine Urobilinogen 2.0 Urine Leukocyte Esterase LARGE Urine RBC 4 Urine WBC Urine Squamous Epithelial Cells 2 Urine Bacteria RARE Urine Hyaline Casts 10 Urine Mucus MANY Microscopic Urinalysis Comment CULTURE INDICATED Blood Urea Nitrogen 11 Creatinine 0.80 Random Glucose 80 Total Protein 6.8 Albumin 1.6 Calcium Level 7.2 Magnesium Level 1.4 Alkaline Phosphatase 76 Aspartate Amino Transf (AST/SGOT) 42 Alanine Aminotransferase (ALT/SGPT) 13 Total Bilirubin 3.7 Direct Bilirubin 2.0 Sodium Level 144 Potassium Level 3.3 Chloride Level 114 Carbon Dioxide Level 22.9 Anion Gap 7 Estimat Glomerular Filtration Rate 96 Protein Corrected Calcium 7.4 Indirect Bilirubin 1.7 Total Creatine Kinase 44 Troponin I 0.02 B-Type Natriuretic Peptide 121 Date/Time Source Procedure Growth Status 10/01/17 20:35 Urine Random Urine Urine Culture Pending Worksheet Result Diagram: 10/01/17203410/01/172034 Caprini VTE Risk Assessment Caprini VTE Risk Assessment: Mod/High Risk (score >= 2) Caprini Risk Assessment Model Point Value = 1 Point Value = 2 Point Value = 3 Point Value = 5 Age 41-60 Minor surgery BMI > 25 kg/m2 Swollen legs Varicose veins or History of unexplained or recurrent spontaneous Oral contraceptives or hormone replacement Sepsis (< 1 month) Serious lung disease, including pneumonia (< 1 month) Abnormal pulmonary function Acute myocardial infarction Congestive heart failure (< 1 month) History of inflammatory bowel disease Medical patient at bed rest Age 61-74 Arthroscopic surgery Major open surgery (> 45 min) Laparoscopic surgery (> 45 min) Malignancy Confined to bed (> 72 hours) Immobilizing plaster cast Central venous access Age >= 75 History of VTE Family history of VTE Factor V Leiden Prothrombin [id number] Lupus anticoagulant Anticardiolipin antibodies Elevated serum homocysteine Heparin-induced thrombocytopenia Other congenital or acquired thrombophilia Stroke (< 1 month) Elective arthroplasty Hip, pelvis, or leg fracture Acute spinal cord injury (< 1 month) Prophylaxis Regimen Total Risk Factor Score Risk Level Prophylaxis Regimen 0-1 Low Early ambulation 2 Moderate Order ONE of the following: *Sequential Compression Device (SCD) *Heparin 5000 units SQ BID 3-4 Higher Order ONE of the following medications: *Heparin 5000 units SQ TID *Enoxaparin/Lovenox 40 mg SQ daily (WT < 150 kg, CrCl > 30 mL/min) *Enoxaparin/Lovenox 30 mg SQ daily (WT < 150 kg, CrCl > 10-29 mL/min) *Enoxaparin/Lovenox 30 mg SQ BID (WT < 150 kg, CrCl > 30 mL/min) AND/OR *Sequential Compression Device (SCD) 5 or more Highest Order ONE of the following medications: *Heparin 5000 units SQ TID (Preferred with Epidurals) *Enoxaparin/Lovenox 40 mg SQ daily (WT < 150 kg, CrCl > 30 mL/min) *Enoxaparin/Lovenox 30 mg SQ daily (WT < 150 kg, CrCl > 10-29 mL/min) *Enoxaparin/Lovenox 30 mg SQ BID (WT < 150 kg, CrCl > 30 mL/min) AND *Sequential Compression Device (SCD) Assessment and Plan Assessment and Plan Assessment/plan: 1. Generalized weakness Unclear etiology Head CT negative for acute intracranial process Patient does have left hand laboratory analyst weakness, questionable facial droop and new onset inability to ambulate CVA/TIA workup pending including MRI, MRA, carotid ultrasound and echo Neurology consulted, appreciate recommendations 2. Hypocalcemic and hypokalemia Status post replacement Monitor BMP 3. Alcohol abuse Thiamine/folate/multivitamin CIWA protocol Cessation counseling provided FEN heart healthy diet Electrolytes: as above Heparin Case discussed with ER physician at length Physician Certification 2 Midnight Certification Type: Admission for Inpatient Services Order for Inpatient Services The services are ordered in accordance with Medicare regulations or non- Medicare payer requirements, as applicable. In the case of services not specified as inpatient-only, they are appropriately provided as inpatient services in accordance with the 2-midnight benchmark. Estimated LOS (days): 2 2 days is the estimated time the patient will need to remain in the hospital, assuming treatment plan goals are met and no additional complications. Post-Hospital Plan: Not yet determined Jeri Mccartney MD Oct 02, 2017 00:57
[2017-10-02] MEDS ORDERED: LORazepam 2 MG TAB PO PRN (01:00)
[2017-10-02] MEDS ORDERED: LORazepam 2 MG/ML VIAL IV PUSH PRN ×4 (01:00)
[2017-10-02] MEDS ORDERED: FLUMAZENIL 0.5 MG/5 ML VIAL IV PUSH PRN (01:00)
[2017-10-02] MEDS ORDERED: LORazepam 1 MG TAB PO PRN (01:00)
[2017-10-02] MEDS: cefTRIAXone INJ 1,000 MG in SODIUM CHLORIDE 0.9% INJ 100 ML IV SCH ×2 (02:44→22:30)
[2017-10-02 05:34] LABS: BASOPHIL % 0.9 % (0.0-2.0); EOSINOPHIL # 0.4 TH/MM3 (0-0.4); EOSINOPHIL % 8.9 % (0.0-4.0); HEMATOCRIT 25.9 % (39.0-51.0); LYMPH % 53.9 % (9.0-44.0); LYMPHOCYTE # 2.2 TH/MM3 (1.0-4.8); MEAN CELL VOLUME 118.4 FL (80.0-100.0); MEAN CORPUSCULAR HEMOGLOBIN 40.9 PG (27.0-34.0); MEAN CORPUSCULAR HGB CONC 34.6 % (32.0-36.0); MONO % 11.3 % (0.0-8.0); PLATELET COUNT 60 TH/MM3 (150-450); RED BLOOD COUNT 2.18 MIL/MM3 (4.50-5.90); RED CELL DISTRIBUTION WIDTH 16.2 % (11.6-17.2); WHITE BLOOD COUNT 4.1 TH/MM3 (4.0-11.0)
[2017-10-02 05:48] LABS: HEMO FLAGS AUTO DIFF
[2017-10-02] MEDS: HEPARIN SODIUM - SQ 10,000 UNITS/ML VIAL SQ SCH ×3 (05:49→22:00)
[2017-10-02 06:08] LABS: BICARBONATE 23.9 MEQ/L (21.0-32.0); POTASSIUM 3.7 MEQ/L (3.5-5.1)
[2017-10-02 06:12] LABS: HDL CHOLESTEROL 18.4 MG/DL (40.0-60.0)
[2017-10-02 06:54] LABS: PLATELET ESTIMATE SMEAR LOW (NORMAL); PLATELET MORPHOLOGY NORMAL (NORMAL); SCAN/DIFF AUTO DIFF CONFIRMED
[2017-10-02] MEDS: INSULIN ASPART SUPPLEMENTAL SCALE SQ SCH ×4 (08:52→21:00)
[2017-10-02] MEDS: ASPIRIN 325 MG TAB PO SCH (09:00)
[2017-10-02] MEDS: PANTOPRAZOLE SOD 40 MG DELAYED RELEASE TAB PO SCH (09:29)
[2017-10-02] MEDS: FOLIC ACID 1 MG TAB PO SCH (09:29)
[2017-10-02] MEDS: POTASSIUM CHLORIDE 20 MEQ CONTROLLED RELEASE TAB PO SCH ×2 (09:29→22:26)
[2017-10-02] MEDS: SODIUM CHLORIDE 0.9% FLUSH 10 ML FLUSH IV FLUSH SCH ×2 (09:29→22:27)
[2017-10-02] MEDS: FUROSEMIDE 40 MG TAB PO SCH ×2 (09:29→22:26)
[2017-10-02] MEDS: THIAMINE HCL 100 MG TAB PO SCH (09:29)
[2017-10-02] MEDS: MULTIVITAMINS/MINERALS THERAPEUTIC TAB PO SCH (09:29)
--- NOTE | 2017-10-02 10:04 | RADRPT ---
EXAM DATE/TIME: 10/02/2017 08:09 [facility] COMPARISON: No previous studies available for comparison. INDICATIONS : Cerebrovascular accident. MEDICAL HISTORY : Hernia, hiatal. Arthritis. Head trauma. Atrial fibrillation. Clotting problems. SURGICAL HISTORY : Cholecystectomy. Stomach staple. Right thumb amputated. ENCOUNTER: Initial ACUITY: 1 day PAIN SCORE: 0/10 LOCATION: Bilateral neck PEAK SYSTOLIC VELOCITIES (cm/sec): ICA/CCA RATIO: Right: 1.4 Left: 1.4 ICA: Right: 117 Left: 111 CCA: Right: 86 Left: 78 ECA: Right: 107 Left: 114 VERTEBRAL: Right: 38 antegrade Left: 38 antegrade Elevated flow velocities and ICA/CCA ratios have been found to correlate with increased degrees of vessel stenosis, calculated as percentage of diameter relative to a normal segment of distal ICA/CCA FINDINGS: Minimal calcified plaque is identified in the right carotid bulb. RIGHT CAROTID: No significant stenosis is visualized. The waveforms are within normal limits. LEFT CAROTID: No significant stenosis is visualized. The waveforms are within normal limits. VERTEBRAL ARTERIES: Antegrade flow is seen in both vertebral arteries. MISCELLANEOUS: None. CONCLUSION: 1. Minimal plaque right carotid bulb. 2. No evidence of hemodynamically significant stenosis. 3. Antegrade flow in both vertebral arteries. Ricky Love MD on October 02, 2017 at 9:58 Board Certified Radiologist. This report was verified electronically.
--- NOTE | 2017-10-02 10:47 | RADRPT ---
EXAM DATE/TIME: 10/02/2017 09:51 [facility] COMPARISON: CT BRAIN W/O CONTRAST, October 01, 2017, 19:57. INDICATIONS : Left leg weakness. MEDICAL HISTORY : A-fib, DVT SURGICAL HISTORY : Cholecystectomy. frontal sinu sx, rt thumb amputated, stomach stapling ENCOUNTER: Subsequent ACUITY: 2 day PAIN SCORE: 0/10 LOCATION: cranial Please note a normal MRA of the brain does not entirely exclude the possibility of a small aneurysm, nor the possibility of distal intracranial vessel disease. TECHNIQUE: 3D time of flight MRA was performed. Source images, multiplanar STS MIP, and 3D volume MIP reconstru ctions were reviewed. FINDINGS: There is adequate visualization of the major intracranial arteries out to the second-order branch ves sels. Irregularity of the internal carotid arteries at the skull base appears to be artifactual due to regional pulsation artifact. There are no dense calcification in the vessels in this region on the prior CT to suggest a susceptibility component. There is no evidence for aneurysm, vessel truncation or stenosis, and no evidence for vascular malformation. Patient is left vertebral dominant with a ve ry diminutive but patent distal right vertebral. CONCLUSION: 1. Irregularity of the internal carotids at the skull base appears to be artifactual due to regional pulsation artifact. 2. Patient is left vertebral dominant with a very diminutive but patent distal right vertebral. 3. Intracranial vessels are otherwise patent without aneurysmal disease. Kenny Burgos MD on October 02, 2017 at 10:28 Board Certified Radiologist. This report was verified electronically.
--- NOTE | 2017-10-02 11:01 | RADRPT ---
EXAM DATE/TIME: 10/02/2017 09:51 [facility] COMPARISON: No previous studies available for comparison. INDICATIONS : Left leg weakness. MEDICAL HISTORY : A-fib, DVT SURGICAL HISTORY : Cholecystectomy. frontal sinu sx, rt thumb amputated, stomach stapling ENCOUNTER: Subsequent ACUITY: 2 day PAIN SCORE: 0/10 LOCATION: cranial TECHNIQUE: Multiplanar, multisequence MRI of the brain was performed without contrast. FINDINGS: CEREBRUM: The ventricles are normal for age. No evidence of midline shift, mass lesion, hemorrhage or acute in farction. No extraaxial fluid collections are seen. The pituitary gland and suprasellar cistern are normal in configuration. WHITE MATTER: Periventricular areas of increased T2 flair signal intensity extending into the centrum semi-ovale bi laterally. POSTERIOR FOSSA: The cerebellum and brainstem are intact. The 4th ventricle is midline. The cerebellopontine angle is unremarkable. The cerebellar tonsils are normal in position. DIFFUSION IMAGING: No focal areas of restricted diffusion are seen. No evidence of acute infarction. EXTRACRANIAL: The visualized portions of the orbits are unremarkable. Retention cyst in the left maxillary antra. CONCLUSION: 1. Mild to moderate periventricular and deep white matter tracts all vessel ischemic demyelination. 2. Retention cyst in left maxillary antra. 3. Nothing acute. Kenny Burgos MD on October 02, 2017 at 10:57 Board Certified Radiologist. This report was verified electronically.
[2017-10-02 12:28] LABS: HEMOGLOBIN A1a 0.6 %; HEMOGLOBIN A1b 0.7 %; HEMOGLOBIN Ao 88.4 %; HEMOGLOBIN F 0.8 %; HEMOGLOBIN LA1C 1.9 %; HEMOGLOBIN P3 2.9 %
--- NOTE | 2017-10-02 13:43 | EKG ---
Date Performed: 10/01/2017 Time Performed: 20:57:55 PTAGE: 66 years EKG: Sinus rhythm NONSPECIFIC ST-T WAVE CHANGE NORMAL ECG Compared to prior tracing no significant change PREVIOUS TRACING : 08/19/2017 12.24 DOCTOR: Fadi Del Rosario Interpretating Date/Time 10/02/2017 13:41:15
--- NOTE | 2017-10-02 15:41 | MB ---
cc: KAREN LUKE M.D. DATE OF CONSULTATION 10/02/2017 DATE OF 1950 REASON FOR CONSULTATION Possible TIA. HISTORY OF PRESENT ILLNESS This is a 66-year-old man admitted via the emergency department with a history of atrial fibrillation and DVT years ago, not on any treatment. He came in for trouble walking. He is not a very good historian but he felt like his balance was unsteady. He last walked yesterday. He felt dizzy, light-headed, possibly having some slurred speech. He really did not complain of any numbness in the hands or the face to me. Apparently he informed the admitting physician of some nausea and emesis. PAST MEDICAL HISTORY 1. History of atrial fibrillation, not on any treatment. 2. History of DVT nine years ago. PAST SURGICAL HISTORY 1. Cholecystectomy. 2. Gastric bypass. MEDICATIONS Active meds are: 1. Pantoprazole. 2. Potassium. 3. Lasix. ALLERGIES None reported. FAMILY HISTORY Noncontributory. SOCIAL HISTORY Lives with his girlfriend. Does not smoke. Drinks a pint of alcohol daily. PHYSICAL EXAMINATION VITAL SIGNS: Temperature 96.2, pulse 93, respiratory rate 12, blood pressure 108/65, satting 99% on room air. NECK: Supple. I do not appreciate any bruits. HEART: Regular. NEUROLOGIC: He is awake and alert. Speech is normal. His pupils are reactive. Visual correia are full. Face is symmetrical. Tongue is midline. Motor-stahl I do not appreciate any facial droop. No drift. Caterpillar Mechanic are symmetrical. DTRs are somewhat brisk but there is no Amy's sign. Toes are downgoing. A significant leg lag is noted but did not get him up to ambulate him until physical therapy assesses him. [id number] no past-pointing. LABORATORY Labs are reviewed. Glucose is 126, A1c 4.2, triglycerides 47, cholesterol 60, HDL 18.4, LDL 32, ALT 13, AST 42, total bilirubin 3.7, direct 2.0, indirect 1.7, magnesium 1.4, corrected calcium 7.4. Repeat calcium today was 8. White count was 5.3 yesterday, hemoglobin 10.6. Today his white count is 4.1, hemoglobin 8.9, MCV 118.4, platelets 60,000 today, 75,000 yesterday. Urine is hazy, large leukocyte esterase, wbc's are innumerable. Culture is indicated. Group-D enterococcus as the preliminary pathogen. IMAGING The brain MRI did not show anything acute. MRA makah of [place] shows irregularity but appears to be an artifact due to regional pulsation artifact. Left vertebral artery dominant with a diminutive but patent right vertebral artery. Otherwise unremarkable MRA. Carotid ultrasound: Minimal plaque right bulb. No significant stenosis. IMPRESSION Questionable TIA. Recommend antiplatelets if possible. Chronic ethanol use. Recommend thiamine, folic acid, multivitamins. Watch for alcohol withdrawal. Watch for seizures. Start him on some benzodiazepines just in case. Will start him on a baby aspirin, watch his hemoglobin and his platelets. Echo is on order. PT and B12 as well as a thyroid panel. SCDs for DVT prophylaxis as well as subcu Lovenox. Depending on findings further recommendations to be made. Also watch his potassium and calcium levels and correct as needed. Karen Luke MD DF/ARRON /2:15 PM /3:22 PM
[2017-10-02 16:44] LABS: FREE T4 0.98 NG/DL (0.76-1.46)
[2017-10-03] VITALS: PULSE 87
[2017-10-03 04:00] VITALS: PULSE 88
[2017-10-03 04:22] VITALS: BP 128/61; PULSE 91; RESP 18; TEMP 96.9; O2SAT 97
[2017-10-03] MEDS: HEPARIN SODIUM - SQ 10,000 UNITS/ML VIAL SQ SCH (05:13)
[2017-10-03 08:00] VITALS: BP 110/71; PULSE 92; RESP 18; TEMP 98; O2SAT 98
[2017-10-03] MEDS: INSULIN ASPART SUPPLEMENTAL SCALE SQ SCH (08:00)
[2017-10-03 08:05] VITALS: PULSE 85
[2017-10-03] MEDS ORDERED: AMOX875T PO (08:20)
[2017-10-03] MEDS ORDERED: ASPI81TA23 PO (08:20)
[2017-10-03] MEDS ORDERED: THIA100 PO (08:20)
[2017-10-03] MEDS ORDERED: FOLI1TAB6 PO (08:20)
--- NOTE | 2017-10-03 08:28 | HHI.DS ---
Discharge Summary Admission Date Oct 01, 2017 at 11:28 pm Discharge Date: Oct 03, 2017 Admitting Diagnosis TIA vs AMS, Hypocalcemia (1) Left-sided weakness ICD Code: R53.1 - Weakness Diagnosis: Principal Status: Acute (2) UTI (urinary tract infection) due to Enterococcus ICD Code: N39.0 - Urinary tract infection, site not specified; B95.2 - Enterococcus as the cause of diseases classified elsewhere Diagnosis: Principal Procedures None. Brief History - From Admission 66-year-old male with a remote history of A. fib and DVT presents to the emergency department for evaluation of generalized weakness. The patient is an extremely poor historian and denies having any medical problems except for a condition for which he takes "a water pill." He states he's been having difficulty ambulating for approximately 2 weeks. He has accompanying generalized weakness. He endorses 1 episode of nausea/emesis but cannot tell me when that occurred. He denies any chest pain or shortness of breath. He has left hand smooth plater weakness and possible left-sided facial droop. Electrolytes significant for potassium of 3.3 and a corrected calcium of 7.4. UA consistent with urinary tract infection. CBC/BMP: 10/02/17 0416 10/02/17 0416 Significant Findings Laboratory Tests Test 10/01/17 20:35 10/02/17 04:16 Red Blood Count 2.57 MIL/MM3 (4.50-5.90) 2.18 MIL/MM3 (4.50-5.90) Hemoglobin 10.6 GM/DL (13.0-17.0) 8.9 GM/DL (13.0-17.0) Hematocrit 30.3 % (39.0-51.0) 25.9 % (39.0-51.0) Mean Corpuscular Volume 118.3 FL (80.0-100.0) 118.4 FL (80.0-100.0) Mean Corpuscular Hemoglobin 41.4 PG (27.0-34.0) 40.9 PG (27.0-34.0) Platelet Count 75 TH/MM3 (150-450) 60 TH/MM3 (150-450) Lymphocytes (%) (Auto) 56.5 % (9.0-44.0) 53.9 % (9.0-44.0) Monocytes (%) (Auto) 9.8 % (0.0-8.0) 11.3 % (0.0-8.0) Eosinophils (%) (Auto) 6.9 % (0.0-4.0) 8.9 % (0.0-4.0) Neutrophils # (Auto) 1.4 TH/MM3 (1.8-7.7) 1.0 TH/MM3 (1.8-7.7) Platelet Estimate LOW (NORMAL) LOW (NORMAL) Prothrombin Time 18.7 SEC (9.8-11.6) Activated Partial Thromboplast Time 31.5 SEC (24.3-30.1) Urine Color ORANGE (YELLW/STRAW) Urine Turbidity HAZY (CLEAR) Urine Protein 30 mg/dL (NEG-TRACE) Urine Ketones TRACE mg/dL (NEG) Urine Occult Blood SMALL (NEG) Urine Bilirubin SMALL (NEG) Urine Leukocyte Esterase LARGE (NEG) Urine RBC 4 /hpf (0-3) Urine Bacteria RARE /hpf (NONE) Urine Mucus MANY /lpf (OCC) Albumin 1.6 GM/DL (3.4-5.0) Calcium Level 7.2 MG/DL (8.5-10.1) 8.0 MG/DL (8.5-10.1) Magnesium Level 1.4 MG/DL (1.5-2.5) Aspartate Amino Transf (AST/SGOT) 42 U/L (15-37) Total Bilirubin 3.7 MG/DL (0.2-1.0) Direct Bilirubin 2.0 MG/DL (0.0-0.2) Potassium Level 3.3 MEQ/L (3.5-5.1) Chloride Level 114 MEQ/L (98-107) 111 MEQ/L (98-107) Protein Corrected Calcium 7.4 MG/DL (8.5-10.1) Indirect Bilirubin 1.7 MG/DL (0.0-0.8) B-Type Natriuretic Peptide 121 PG/ML (0-100) Random Glucose 126 MG/DL (74-106) Hemoglobin A1c 4.2 % (4.3-6.0) Cholesterol Level 60 MG/DL (120-200) HDL Cholesterol 18.4 MG/DL (40.0-60.0) Imaging Last Impressions Head Magnetic Resonance Angiography 10/02/17 0000 Signed Impressions: Service Date/Time: Monday, October 02, 2017 09:51 - CONCLUSION: 1. Irregularity of the internal carotids at the skull base appears to be artifactual due to regional pulsation artifact. 2. Patient is left vertebral dominant with a very diminutive but patent distal right vertebral. 3. Intracranial vessels are otherwise patent without aneurysmal disease. Kenny Burgos MD Carotid Artery Ultrasound 10/02/17 0000 Signed Impressions: Service Date/Time: Monday, October 02, 2017 08:09 - CONCLUSION: 1. Minimal plaque right carotid bulb. 2. No evidence of hemodynamically significant stenosis. 3. Antegrade flow in both vertebral arteries. Ricky Love MD Brain MRI 10/02/17 0000 Signed Impressions: Service Date/Time: Monday, October 02, 2017 09:51 - CONCLUSION: 1. Mild to moderate periventricular and deep white matter tracts all vessel ischemic demyelination. 2. Retention cyst in left maxillary antra. 3. Nothing acute. Kenny Burgos MD Head CT 10/01/17 194 Signed Impressions: Service Date/Time: Sunday, October 01, 2017 19:57 - CONCLUSION: 1. No acute intracranial abnormalities. Mild white matter ischemic changes. Plate and screw fixation anterior wall frontal sinus. Lino Wright MD Chest X-Ray 10/01/17 191 Signed Impressions: Service Date/Time: Sunday, October 01, 2017 19:20 - CONCLUSION: 1. No acute findings. Stable elevated right hemidiaphragm compared with August 19. Lino Wright MD PE at Discharge GENERAL: AOX3. NAD. SKIN: Warm and dry. HEAD: Normocephalic. EYES: No scleral icterus. No injection or drainage. NECK: Supple, trachea midline. No JVD or lymphadenopathy. CARDIOVASCULAR: Regular rate and rhythm without murmurs, gallops, or rubs. RESPIRATORY: Breath sounds equal bilaterally. No accessory muscle use. GASTROINTESTINAL: Abdomen soft, non-tender, nondistended. MUSCULOSKELETAL: No cyanosis, or edema. BACK: Nontender without obvious deformity. No CVA tenderness. Pt update on day of discharge Follow up for possible TIA, UTI. Patient is doing well. Wants to go home. No fever, chills. Hospital Course Mr. Humphrey is a 66 year old male with a history of alcoholism who presented to the ED due to trouble walking. He felt dizzy, light-headed, and possibly had some slurred speech as well. He was worked up for stroke. No imaging evidence of stroke. No significant carotid artery stenosis. Neurology recommended Aspirin 81mg Qday. Patient's urine cx shows enterococcus and he reported UTI symptoms. He received Ceftriaxone empirically but is being discharged on Amoxicillin for 7 days. He is also strongly advised to quit or drastically reduce alcohol consumption as it is affecting his platelets among other health concerns. He verbalized understanding. Patient will obtain PCP and we recommended him to follow up within one week. Pt Condition on Discharge: Good Discharge Disposition: Discharge Home Discharge Time: <= 30 minutes Discharge Instructions DIET: Follow Instructions for: Heart Healthy Diet Speech Therapy-Diet Recommends: Regular Activities you can perform: Regular-No Restrictions Follow up Referrals: PCP Follow-up - 1 Week New Medications: Aspirin DR (Aspirin EC) 81 Mg Tabdr 81 MG PO DAILY for Blood Clot Prevention for 90 Days, #90 TAB 0 Refills Amoxicillin (Amoxicillin) 875 Mg Tab 875 MG PO Q12HR for Infection, #14 TAB Folic Acid (Folic Acid) 1 Mg Tablet 1 MG PO DAILY for Vitamins, #30 TAB Thiamine HCl (Gnp Vitamin B-1) 100 Mg Tab 100 MG PO DAILY for Vitamins, #30 TAB Continued Medications: Furosemide (Furosemide) 40 Mg Tab 40 MG PO BID for 30 Days, #60 TAB 0 Refills Pantoprazole (Pantoprazole) 40 Mg Tab 40 MG PO DAILY for Reflux, #30 TAB 0 Refills Potassium Chloride Microencaps (Potassium Chloride Microencaps) 20 Meq Tab 20 MEQ PO BID for 30 Days, #60 TAB 0 Refills Morales Mackay DO Oct 03, 2017 8:28 am
[2017-10-03] MEDS ORDERED: AMOXICILLIN 875 MG TAB PO SCH (09:45)
[2017-10-03] MEDS ORDERED: PNEUMOCOCCAL POLYVALENT INJ 25 MCG/0.5 ML SYR IM ONE (10:00)
[2017-10-03] MEDS ORDERED: INFLUENZA VIRUS VACCINE (QUADRIVALENT) 0.5 ML SYR IM ONE (10:00)
[2017-10-03] MEDS: POTASSIUM CHLORIDE 20 MEQ CONTROLLED RELEASE TAB PO SCH (10:14)
[2017-10-03] MEDS: FUROSEMIDE 40 MG TAB PO SCH (10:14)
[2017-10-03] MEDS: FOLIC ACID 1 MG TAB PO SCH (10:14)
[2017-10-03] MEDS: MULTIVITAMINS/MINERALS THERAPEUTIC TAB PO SCH (10:14)
[2017-10-03] MEDS: SODIUM CHLORIDE 0.9% FLUSH 10 ML FLUSH IV FLUSH SCH (10:14)
[2017-10-03] MEDS: PANTOPRAZOLE SOD 40 MG DELAYED RELEASE TAB PO SCH (10:14)
[2017-10-03] MEDS: THIAMINE HCL 100 MG TAB PO SCH (10:14)
[2017-10-03] MEDS: ASPIRIN 325 MG TAB PO SCH (10:14)
== END 2017-10-03 12:50 | disposition home or self-care (01) | DRG 69 ==
LOC: NEPC 16:37 → NEDA 22:46 → OBSVTOIN 23:28 → NEPGCP 10-02 01:05
PROVIDERS: ADMIT Hospitalist; ATTEND Hospitalist
DX: G45.9 Transient cerebral ischemic attack, unspecified (principal); I48.91 Unspecified atrial fibrillation; E83.51 Hypocalcemia; N39.0 Urinary tract infection, site not specified; R53.1 Weakness; R47.81 Slurred speech; R29.810 Facial weakness; E87.6 Hypokalemia; M19.90 Unspecified osteoarthritis, unspecified site; F10.20 Alcohol dependence, uncomplicated; B95.2 Enterococcus as the cause of diseases classified elsewhere; Y90.9 Presence of alcohol in blood, level not specified; Z86.718 Personal history of other venous thrombosis and embolism; Z87.820 Personal history of traumatic brain injury; Z89.011 Acquired absence of right thumb; Z98.84 Bariatric surgery status
CPT/HCPCS: 70450; 70544; 70551; 71010; 80048; 80061; 80076; 81001; 82550; 82607; 82948; 83036; 83735; 83880; 84155; 84439; 84443; 84484; 85025; 85610; 85730; 87077; 87086; 87186; 93005; 93880; G8987-GO; G8988-GO; G8996-GN; G8997-GN; G8998-GN; J0610; J0696; J1644; J3475; J3480; J7040

== ENCOUNTER 2017-11-19 14:22 | Inpatient (IN) | payer MEDICARE ==
[~2017-11-19] VITALS: Ht 177.8 cm; Wt 103.2 kg
[~2017-11-19 14:22] MED LIST changes: +AMOX875T PO; +ASPI81TA23 PO; +FOLI1TAB6 PO; +THIA100 PO
[2017-11-19 14:35] VITALS: BP 99/55; PULSE 88; RESP 16; TEMP 98.6; O2SAT 98
--- NOTE | 2017-11-19 14:41 | PD ---
HPI Chief Complaint: Neuro Symptoms/ Deficits Time Seen by Provider: 14:31 Travel History International Travel<30 days: No Contact w/Intl Traveler<30days: No History of Present Illness HPI 67-year-old male with history of A. fib, DVT not apparently on a blood thinner, presents emergency department via [facility] with altered mental status. [facility] states that her his home health care went to his house today and declared a stroke alert however, the symptoms have apparently been going on since yesterday. Most of the history is obtained from [facility]. BG 81 on ambulance. Patient appeared to be more verbal at the house but less verbal once in the ambulance. Patient has few complaints unless he is prompted. Apparently patient was discharged yesterday from [facility] with the discharge diagnosis of cirrhosis. He is unable to give me much information but does not indicate that he fell and he cannot give me a medical history. Says he has not urinated in ' quite some time'. Denies pain elsewhere. PFSH Past Medical History Arthritis: Yes Asthma: No Atrial Fibrillation: Yes Anxiety: No Depression: No Heart Rhythm Problems: Yes (atrial fibrillation ) Cancer: No Cardiovascular Problems: No High Cholesterol: No Chemotherapy: No Chest Pain: No Congestive Heart Failure: No COPD: No Cerebrovascular Accident: No Diabetes: No Diminished Hearing: No Endocrine: No Gastrointestinal Disorders: Yes Hiatal Hernia: Yes Heparin Induced Thrombocytopen: No Hypertension: No Kidney Stones: No Musculoskeletal: No Neurologic: No Psychiatric: No Reproductive: No Respiratory: No Immunizations Current: Yes Migraines: No Radiation Therapy: No Renal Failure: No Seizures: No Sickle Cell Disease: No Sleep Apnea: No Thyroid Disease: No Ulcer: No Past Surgical History AICD: No Arteriovenous Shunt: No Cardiac Surgery: No Cholecystectomy: Yes Ear Surgery: No Endocrine Surgery: No Eye Surgery: No Genitourinary Surgery: No Gynecologic Surgery: No Insulin Pump: No Joint Replacement: No Oral Surgery: No Pacemaker: No Thoracic Surgery: No Other Surgery: Yes (RIGHT THUMB AMPUTATED) Social History Alcohol Use: Yes (DAILY) Tobacco Use: No Substance Use: No Allergies-Medications (Allergen,Severity, Reaction): Coded Allergies: No Known Allergies (Unverified Allergy, Unknown, 11/19/17) Reported Meds & Prescriptions Reported Meds & Active Scripts Active Pantoprazole (Pantoprazole Sodium) 40 Mg Tab 40 Mg PO DAILY Furosemide 40 Mg Tab 40 Mg PO BID 30 Days Reported Sucralfate 1 Gram Tab 1 Gm PO QID on empty stomach Spironolactone 25 Mg Tab 25 Mg PO BIDPC Review of Systems ROS Limitations: Clinical Condition, Poor Historian Except as stated in HPI: all other systems reviewed are Neg Physical Exam Narrative GENERAL: Well-developed well-nourished in no apparent distress, sitting comfortably in bed, slow to follow instructions but does not answer all questions appropriately or timely SKIN: Focused skin assessment warm/dry. Right axillary chest wall with a 3 cm x 2 cm contusion, appearing approximately 3-4 days old, mild TTP to the area without crepitus HEAD: Atraumatic. Normocephalic. EYES: Pupils equal and round. No scleral icterus. No injection or drainage. ENT: No nasal bleeding or discharge. Mucous membranes pink and moist. NECK: Trachea midline. No JVD. No midline tenderness CARDIOVASCULAR: Regular rate and rhythm. No murmur appreciated. RESPIRATORY: No accessory muscle use. Clear to auscultation. Breath sounds equal bilaterally. GASTROINTESTINAL: lower abdomen/pelvis with TTP and round mass (bladder?), multiple scars. MUSCULOSKELETAL: No obvious deformities. No clubbing. No cyanosis. No edema. Left upper extremity-large ecchymosis to the medial aspect of bicep, NEUROLOGICAL: Awake. Maintaining his own airway, spontaneous movements. Difficulty with right lateral movement of head. Speech non slurred, no facial droop. Equal aviation all source intelligence strength. PSYCHIATRIC: Appropriate mood and affect Data Data Last Documented VS Vital Signs Date Time Temp Pulse Resp B/P (MAP) Pulse Ox O2 Delivery O2 Flow Rate FiO2 11/19/17 15:15 80 16 101/55 (70) 98 Room Air 11/19/17 14:35 98.6 Orders Orders Electrocardiogram (11/19/17 14:31) Ammonia (11/19/17 14:31) Complete Blood Count With Diff (11/19/17 14:31) Comprehensive Metabolic Panel (11/19/17 14:31) Creatine Kinase (Cpk) (11/19/17 14:31) Prothrombin Time / Inr (Pt) (11/19/17 14:31) Act Partial Throm Time (Ptt) (11/19/17 14:31) Troponin I (11/19/17 14:31) Urinalysis - C+S If Indicated (11/19/17 14:31) Chest, Single Ap (11/19/17 14:31) Ct Brain W/O Iv Contrast(Rout) (11/19/17 14:31) Alcohol (Ethanol) (11/19/17 14:31) Urinary Catheter Insert/Apply (11/19/17 14:41) Urine Culture (11/19/17 15:15) Vancomycin Inj (Vancomycin Inj) (11/19/17 17:45) Lactulose Liq (Lactulose Liq) (11/19/17 16:00) Ceftriaxone Inj (Rocephin Inj) (11/19/17 16:15) Sodium Chlorid 0.9% 500 Ml Inj (Ns 500 M (11/19/17 16:15) Admit To Inpatient (11/19/17 ) Code Status (11/19/17 17:19) Vital Signs (Adult) Q4H (11/19/17 17:19) Activity Bed Rest (11/19/17 17:19) Neuro Checks Q4H (11/19/17 17:19) Section Crews Activities Clerk / Telemetry MARTI.Q8H (11/19/17 17:19) Intake + Output MARTI.QSHIFT (11/19/17 17:19) Urinary Catheter Management MARTI.Q8H (11/19/17 17:19) Diet Npo (11/19/17 Dinner) Sodium Chloride 0.9% Flush (Ns Flush) (11/19/17 17:30) Sodium Chloride 0.9% Flush (Ns Flush) (11/19/17 21:00) Complete Blood Count With Diff (11/20/17 06:00) Comprehensive Metabolic Panel (11/20/17 06:00) Thyroid Stimulating Hormone (11/19/17 17:19) Ammonia (11/20/17 06:00) Lactic Acid (11/19/17 17:19) Magnesium (Mg) (11/19/17 17:19) Phosphorus (Po4) (11/19/17 17:19) Blood Culture (11/19/17 17:19) Drug Screen, Random Urine (11/19/17 17:19) Resp Oxygen Ector C Titrat 1-4 L (11/19/17 ) Scd Bilateral/Knee High MARTI.BID (11/19/17 17:19) Inpatient Certification (11/19/17 ) Sucralfate (Carafate) (11/19/17 18:00) Furosemide (Lasix) (11/19/17 21:00) Pantoprazole (Protonix) (11/20/17 09:00) Spironolactone (Aldactone) (11/19/17 18:00) Lactulose Liq (Lactulose Liq) (11/19/17 17:45) Us Kidney/Renal/Bladder (11/19/17 ) ^ Other Nursing Orders (11/19/17 17:43) Admit Order (Ed Use Only) (11/19/17 17:43) Labs Laboratory Tests Test 11/19/17 14:45 11/19/17 14:55 11/19/17 15:15 White Blood Count 10.9 TH/MM3 Red Blood Count 2.15 MIL/MM3 Hemoglobin 8.7 GM/DL Hematocrit 24.6 % Mean Corpuscular Volume 114.5 FL Mean Corpuscular Hemoglobin 40.5 PG Mean Corpuscular Hemoglobin Concent 35.3 % Red Cell Distribution Width 16.5 % Platelet Count 66 TH/MM3 Mean Platelet Volume 8.2 FL Neutrophils (%) (Auto) 60.9 % Lymphocytes (%) (Auto) 25.4 % Monocytes (%) (Auto) 8.0 % Eosinophils (%) (Auto) 5.5 % Basophils (%) (Auto) 0.2 % Neutrophils # (Auto) 6.7 TH/MM3 Lymphocytes # (Auto) 2.8 TH/MM3 Monocytes # (Auto) 0.9 TH/MM3 Eosinophils # (Auto) 0.6 TH/MM3 Basophils # (Auto) 0.0 TH/MM3 CBC Comment AUTO DIFF Differential Total Cells Counted 100 Neutrophils % (Manual) 66 % Band Neutrophils % 10 % Lymphocytes % 14 % Monocytes % 3 % Eosinophils % 7 % Neutrophils # (Manual) 8.3 TH/MM3 Differential Comment FINAL DIFF MANUAL Toxic Granulation 2+ Toxic Vacuolation PRESENT Dohle Bodies PRESENT Platelet Estimate LOW Platelet Morphology Comment NORMAL Spherocytes 1+ Acanthocytes OCC Prothrombin Time 20.3 SEC Prothromb Time International Ratio 2.0 RATIO Activated Partial Thromboplast Time 34.1 SEC Blood Urea Nitrogen 32 MG/DL Creatinine 2.45 MG/DL Random Glucose 77 MG/DL Total Protein 7.3 GM/DL Albumin 1.8 GM/DL Calcium Level 7.9 MG/DL Alkaline Phosphatase 91 U/L Aspartate Amino Transf (AST/SGOT) 38 U/L Alanine Aminotransferase (ALT/SGPT) 15 U/L Total Bilirubin 7.1 MG/DL Sodium Level 141 MEQ/L Potassium Level 4.0 MEQ/L Chloride Level 105 MEQ/L Carbon Dioxide Level 27.1 MEQ/L Anion Gap 9 MEQ/L Estimat Glomerular Filtration Rate 26 ML/MIN Phosphorus Level 2.6 MG/DL Magnesium Level 1.8 MG/DL Total Creatine Kinase 78 U/L Troponin I LESS THAN 0.02 NG/ML B-Type Natriuretic Peptide 122 PG/ML Thyroid Stimulating Hormone 3rd Gen 6.440 uIU/ML Ethyl Alcohol Level LESS THAN 3 MG/DL Ammonia 70 MCMOL/L Urine Color DARK-BROWN Urine Turbidity HAZY Urine pH 5.0 Urine Specific [place] 1.022 Urine Protein 30 mg/dL Urine Glucose (UA) NEG mg/dL Urine Ketones TRACE mg/dL Urine Occult Blood SMALL Urine Nitrite NEG Urine Bilirubin SMALL Urine Urobilinogen 4.0 MG/DL Urine Leukocyte Esterase TRACE Urine RBC 6 /hpf Urine WBC 3 /hpf Urine Squamous Epithelial Cells <1 /hpf Urine Bacteria FEW /hpf Urine Hyaline Casts 10 /lpf Urine Mucus FEW /lpf Microscopic Urinalysis Comment CATH-CULTURE IND Urine Opiates Screen NEG Urine Barbiturates Screen NEG Urine Amphetamines Screen NEG Urine Benzodiazepines Screen NEG Urine Cocaine Screen NEG Urine Cannabinoids Screen NEG MDM Medical Decision Making Medical Screen Exam Complete: Yes Emergency Medical Condition: Yes Differential Diagnosis TIA, CVA, hepatic encephalopathy, STEMI Narrative Course 67-year-old male with history of A. fib, DVT not apparently on a blood thinner, presents emergency department via [facility] with altered mental status. [facility] states that her his home health care went to his house today and declared a stroke alert however, the symptoms have apparently been going on since yesterday. Most of the history is obtained from [facility]. BG 81 on ambulance. Patient appeared to be more verbal at the house but less verbal once in the ambulance. Patient has few complaints unless he is prompted. Apparently patient was discharged yesterday from [facility] with the discharge diagnosis of cirrhosis. He is unable to give me much information but does not indicate that he fell and he cannot give me a medical history. Says he has not urinated in ' quite some time'. Denies pain elsewhere. Patient initially hypotensive. Concern for congestive heart failure. Avoided IV fluids for concern of exacerbation. 500C IVF administered. Labs from [facility] dated November 16 H&H 7.9/23.7. INR 2.1. BUN /creatinine 20/1.03. Today, H&H 8.7/24.6, INR 2.0. BUN/creatinine 32/2.45. Ammonia 70. Gasca catheter introduced as patient states that he has been unable to urinate for an extended period of time. UA consistent with urinary tract infection. EMR from September states that UTI sensitive to vancomycin. Rocephin and vancomycin administered. Lactulose administered for elevated ammonia. Last Impressions Head CT 11/19/[id number] Signed Impressions: Service Date/Time: Sunday, November 19, 2017 14:47 - CONCLUSION: Stable unremarkable exam for age. Donte Samuels MD Chest X-Ray 11/19/[id number] Signed Impressions: Service Date/Time: Sunday, November 19, 2017 15:12 - CONCLUSION: 1. Right lower lung zone airspace disease and volume loss consistent with atelectasis with probable small effusion. Dustin Melo MD Upon reassessment, pt was able to speak in full sentences but still has trouble finding with explaining his concerns or questions. Patient will be admitted with hepatic encephalopathy, urinary tract infection, acute kidney injury likely secondary to obstruction, thrombocytopenia. Records were requested however, we have not been able to obtain these in time for admission. Consider neuro consult as his symptoms have fluctuated. Diagnosis Primary Impression: Hepatic encephalopathy Additional Impressions: UTI (urinary tract infection) Qualified Codes: N30.00 - Acute cystitis without hematuria DIONTE (acute kidney injury) Urinary obstruction Anemia Qualified Codes: D64.89 - Other specified anemias Admitting Information Admitting Physician Requests: Admit Condition: Stable Moriah Clemons Nov 19, 2017 14:41
[2017-11-19] MEDS ORDERED: SPIR25TA PO (14:44)
[2017-11-19] MEDS ORDERED: SUCR1TAB PO (14:44)
--- NOTE | 2017-11-19 15:08 | RADRPT ---
EXAM DATE/TIME: 11/19/2017 14:47 [facility] COMPARISON: CT BRAIN W/O CONTRAST, October 01, 2017, 19:57. INDICATIONS : Altered mental status RADIATION DOSE: 56.35 CTDIvol (mGy) MEDICAL HISTORY : Cardiovascular disease. Head trauma SURGICAL HISTORY : None. ENCOUNTER: Initial ACUITY: 1 day PAIN SCALE: 0/10 LOCATION: cranial TECHNIQUE: Multiple contiguous axial images were obtained of the head. Using automated exposure control and adj ustment of the mA and/or kV according to patient size, radiation dose was kept as low as reasonably a chievable to obtain optimal diagnostic quality images. DICOM format image data is available electro nically for review and comparison. FINDINGS: CEREBRUM: The ventricles are normal for age. No evidence of midline shift, mass lesion, hemorrhage or acute in farction. No extra-axial fluid collections are seen. POSTERIOR FOSSA: The cerebellum and brainstem are intact. The 4th ventricle is midline. The cerebellopontine angle i s unremarkable. EXTRACRANIAL: The visualized portion of the orbits is intact. SKULL: The calvaria is intact. No evidence of skull fracture. CONCLUSION: Stable unremarkable exam for age. Donte Samuels MD on November 19, 2017 at 15:05 Board Certified Radiologist. This report was verified electronically.
[2017-11-19 15:15] VITALS: BP 101/55; PULSE 80; RESP 16; O2SAT 98
[2017-11-19 15:33] LABS: AUTOMATED NEUTROPHIL # 6.7 TH/MM3 (1.8-7.7); BASOPHIL % 0.2 % (0.0-2.0); EOSINOPHIL # 0.6 TH/MM3 (0-0.4); EOSINOPHIL % 5.5 % (0.0-4.0); HEMATOCRIT 24.6 % (39.0-51.0); HEMOGLOBIN 8.7 GM/DL (13.0-17.0); LYMPH % 25.4 % (9.0-44.0); LYMPHOCYTE # 2.8 TH/MM3 (1.0-4.8); MEAN CELL VOLUME 114.5 FL (80.0-100.0); MEAN CORPUSCULAR HEMOGLOBIN 40.5 PG (27.0-34.0); MEAN CORPUSCULAR HGB CONC 35.3 % (32.0-36.0); MEAN PLATELET VOLUME 8.2 FL (7.0-11.0); MONOCYTE # 0.9 TH/MM3 (0-0.9); NEUT % 60.9 % (16.0-70.0); PLATELET COUNT 66 TH/MM3 (150-450); RED BLOOD COUNT 2.15 MIL/MM3 (4.50-5.90); RED CELL DISTRIBUTION WIDTH 16.5 % (11.6-17.2); WHITE BLOOD COUNT 10.9 TH/MM3 (4.0-11.0)
[2017-11-19 15:43] LABS: PROTHROMBIN TIME - PATIENT 20.3 SEC (9.8-11.6)
[2017-11-19 15:45] LABS: BILIRUBIN, URINE SMALL (NEG); BLOOD, URINE SMALL (NEG); GLUCOSE,URINE NEG (NEG); KETONE, URINE TRACE mg/dL (NEG); MUCUS URINE FEW /lpf (OCC); NITRITE,URINE NEG (NEG); SQUAMOUS EPITHELIAL CELL URINE <1 /hpf (0-5); URINE LEUKOCYTE ESTERASE TRACE (NEG)
[2017-11-19 15:45] LABS: ALBUMIN 1.8 GM/DL (3.4-5.0); AST (GOT) 38 U/L (15-37); BICARBONATE 27.1 MEQ/L (21.0-32.0); BLOOD UREA NITROGEN 32 MG/DL (7-18); CALCIUM 7.9 MG/DL (8.5-10.1); CHLORIDE 105 MEQ/L (98-107); CREATININE 2.45 MG/DL (0.60-1.30); GLOMERULAR FILTRATION RATE 26 ML/MIN (>89); GLUCOSE,RANDOM 77 MG/DL (74-106); SODIUM (NA) 141 MEQ/L (136-145)
--- NOTE | 2017-11-19 15:47 | RADRPT ---
EXAM DATE/TIME: 11/19/2017 15:12 [facility] COMPARISON: CHEST SINGLE AP, October 01, 2017, 19:20. INDICATIONS : Syncope. Altered mental status. MEDICAL HISTORY : Cardiovascular disease. Head trauma. SURGICAL HISTORY : None. ENCOUNTER: Initial ACUITY: 1 day PAIN SCORE: Non-responsive. LOCATION: Bilateral chest FINDINGS: Diffuse hazy opacity in the right hemithorax with increased volume loss and airspace disease in the r ight lower lung zone. Heart and mediastinal contours are stable. Remainder of the exam is unchanged. CONCLUSION: 1. Right lower lung zone airspace disease and volume loss consistent with atelectasis with probable s mall effusion. Dustin Melo MD on November 19, 2017 at 15:43 Board Certified Radiologist. This report was verified electronically.
[2017-11-19 15:48] LABS: BACTERIA, URINE FEW /hpf; HYALINE CAST, URINE 10 /lpf (RARE); URINE COLOR DARK-BROWN (YELLW/STRAW)
[2017-11-19 15:55] LABS: ALKALINE PHOSPHATASE 91 U/L (45-117); ALT (GPT) 15 U/L (12-78); TOTAL BILIRUBIN ADULT 7.1 MG/DL (0.2-1.0); TOTAL PROTEIN 7.3 GM/DL (6.4-8.2); TROPONIN I LESS THAN 0.02 NG/ML (0.02-0.05)
[2017-11-19] MEDS ORDERED: LACTULOSE SYRUP 20 GM/30 ML CUP PO ONE ×2 (16:00→17:45)
[2017-11-19 16:12] LABS: BANDS 10 % (0-6); LYMPHOCYTES 14 % (9-44); MONOCYTES 3 % (0-8); NEUTROPHIL # MANUAL DIFF 8.3 TH/MM3 (1.8-7.7); POLYS (SEG NEUTROPHILS) 66 % (16-70); TOXIC GRANULATION 2+ (NORMAL); TOXIC VACUOLATION PRESENT (NONE SEEN)
[2017-11-19 16:14] LABS: ACANTHOCYTES OCC (NORMAL); SPHEROCYTES 1+ (NORMAL)
[2017-11-19 16:15] LABS: DOHLE BODIES PRESENT (NONE SEEN)
[2017-11-19] MEDS ORDERED: SODIUM CHLORID 0.9% 500 ML INJ 500 ML IV ONE (16:15)
[2017-11-19] MEDS ORDERED: cefTRIAXone INJ 1,000 MG in SODIUM CHLORIDE 0.9% INJ 100 ML IV ONE (16:15)
--- NOTE | 2017-11-19 17:22 | HHI.HP ---
[facility] Service Family Medicine Primary Care Physician No Primary Care Physician Admission Diagnosis Diagnoses: International Travel<30 Days: No Contact w/Intl Traveler<30days: No Known Affected Area: No Past Family Social History Allergies: Coded Allergies: No Known Allergies (Unverified Allergy, Unknown, 11/19/17) Physical Exam Vital Signs Vital Signs Date Time Temp Pulse Resp B/P (MAP) Pulse Ox O2 Delivery O2 Flow Rate FiO2 11/19/17 15:15 80 16 101/55 (70) 98 Room Air 11/19/17 14:35 98.6 88 16 99/55 (70) 98 Physical Exam GENERAL: This is a well-nourished, well-developed patient, in no apparent distress. SKIN: No rashes, ecchymoses or lesions. Cool and dry. HEAD: Atraumatic. Normocephalic. No temporal or scalp tenderness. EYES: Pupils equal round and reactive. Extraocular motions intact. No scleral icterus. No injection or drainage. ENT: Nose without bleeding, purulent drainage or septal hematoma. Throat without erythema, tonsillar hypertrophy or exudate. Uvula midline. Airway patent. NECK: Trachea midline. No JVD or lymphadenopathy. Supple, nontender, no meningeal signs. CARDIOVASCULAR: Regular rate and rhythm without murmurs, gallops, or rubs. RESPIRATORY: Clear to auscultation. Breath sounds equal bilaterally. No wheezes , rales, or rhonchi. GASTROINTESTINAL: Abdomen soft, non-tender, nondistended. No hepato-splenomegaly , or palpable masses. No guarding. MUSCULOSKELETAL: Extremities without clubbing, cyanosis, or edema. No joint tenderness, effusion, or edema noted. No calf tenderness. Negative Homans sign bilaterally. NEUROLOGICAL: Awake and alert. Cranial nerves II through XII intact. Motor and sensory grossly within normal limits. Five out of 5 muscle strength in all muscle groups. Normal speech. Laboratory Laboratory Tests Test 11/19/17 14:45 11/19/17 14:55 11/19/17 15:15 White Blood Count 10.9 Red Blood Count 2.15 Hemoglobin 8.7 Hematocrit 24.6 Mean Corpuscular Volume 114.5 Mean Corpuscular Hemoglobin 40.5 Mean Corpuscular Hemoglobin Concent 35.3 Red Cell Distribution Width 16.5 Platelet Count 66 Mean Platelet Volume 8.2 Neutrophils (%) (Auto) 60.9 Lymphocytes (%) (Auto) 25.4 Monocytes (%) (Auto) 8.0 Eosinophils (%) (Auto) 5.5 Basophils (%) (Auto) 0.2 Neutrophils # (Auto) 6.7 Lymphocytes # (Auto) 2.8 Monocytes # (Auto) 0.9 Eosinophils # (Auto) 0.6 Basophils # (Auto) 0.0 CBC Comment AUTO DIFF Differential Total Cells Counted 100 Neutrophils % (Manual) 66 Band Neutrophils % 10 Lymphocytes % 14 Monocytes % 3 Eosinophils % 7 Neutrophils # (Manual) 8.3 Differential Comment FINAL DIFF MANUAL Toxic Granulation 2+ Toxic Vacuolation PRESENT Dohle Bodies PRESENT Platelet Estimate LOW Platelet Morphology Comment NORMAL Spherocytes 1+ Acanthocytes OCC Prothrombin Time 20.3 Prothromb Time International Ratio 2.0 Activated Partial Thromboplast Time 34.1 Blood Urea Nitrogen 32 Creatinine 2.45 Random Glucose 77 Total Protein 7.3 Albumin 1.8 Calcium Level 7.9 Alkaline Phosphatase 91 Aspartate Amino Transf (AST/SGOT) 38 Alanine Aminotransferase (ALT/SGPT) 15 Total Bilirubin 7.1 Sodium Level 141 Potassium Level 4.0 Chloride Level 105 Carbon Dioxide Level 27.1 Anion Gap 9 Estimat Glomerular Filtration Rate 26 Total Creatine Kinase 78 Troponin I LESS THAN 0.02 Ethyl Alcohol Level LESS THAN 3 Ammonia 70 Urine Color DARK-BROWN Urine Turbidity HAZY Urine pH 5.0 Urine Specific [place] 1.022 Urine Protein 30 Urine Glucose (UA) NEG Urine Ketones TRACE Urine Occult Blood SMALL Urine Nitrite NEG Urine Bilirubin SMALL Urine Urobilinogen 4.0 Urine Leukocyte Esterase TRACE Urine RBC 6 Urine WBC 3 Urine Squamous Epithelial Cells <1 Urine Bacteria FEW Urine Hyaline Casts 10 Urine Mucus FEW Microscopic Urinalysis Comment CATH-CULTURE IND Date/Time Source Procedure Growth Status 11/19/17 15:15 Urine Catheterized Urine Urine Culture Pending Received Result Diagram: 11/19/17 1445 11/19/17 1445 Caprini VTE Risk Assessment Caprini Risk Assessment Model Point Value = 1 Point Value = 2 Point Value = 3 Point Value = 5 Age 41-60 Minor surgery BMI > 25 kg/m2 Swollen legs Varicose veins or History of unexplained or recurrent spontaneous Oral contraceptives or hormone replacement Sepsis (< 1 month) Serious lung disease, including pneumonia (< 1 month) Abnormal pulmonary function Acute myocardial infarction Congestive heart failure (< 1 month) History of inflammatory bowel disease Medical patient at bed rest Age 61-74 Arthroscopic surgery Major open surgery (> 45 min) Laparoscopic surgery (> 45 min) Malignancy Confined to bed (> 72 hours) Immobilizing plaster cast Central venous access Age >= 75 History of VTE Family history of VTE Factor V Leiden Prothrombin [id number] Lupus anticoagulant Anticardiolipin antibodies Elevated serum homocysteine Heparin-induced thrombocytopenia Other congenital or acquired thrombophilia Stroke (< 1 month) Elective arthroplasty Hip, pelvis, or leg fracture Acute spinal cord injury (< 1 month) Prophylaxis Regimen Total Risk Factor Score Risk Level Prophylaxis Regimen 0-1 Low Early ambulation 2 Moderate Order ONE of the following: *Sequential Compression Device (SCD) *Heparin 5000 units SQ BID 3-4 Higher Order ONE of the following medications: *Heparin 5000 units SQ TID *Enoxaparin/Lovenox 40 mg SQ daily (WT < 150 kg, CrCl > 30 mL/min) *Enoxaparin/Lovenox 30 mg SQ daily (WT < 150 kg, CrCl > 10-29 mL/min) *Enoxaparin/Lovenox 30 mg SQ BID (WT < 150 kg, CrCl > 30 mL/min) AND/OR *Sequential Compression Device (SCD) 5 or more Highest Order ONE of the following medications: *Heparin 5000 units SQ TID (Preferred with Epidurals) *Enoxaparin/Lovenox 40 mg SQ daily (WT < 150 kg, CrCl > 30 mL/min) *Enoxaparin/Lovenox 30 mg SQ daily (WT < 150 kg, CrCl > 10-29 mL/min) *Enoxaparin/Lovenox 30 mg SQ BID (WT < 150 kg, CrCl > 30 mL/min) AND *Sequential Compression Device (SCD) Citlaly Dooley MD R1 Nov 19, 2017 17:22
[2017-11-19] MEDS ORDERED: SODIUM CHLORIDE 0.9% FLUSH 10 ML FLUSH IV FLUSH PRN (17:30)
--- NOTE | 2017-11-19 17:30 | HHI.HP ---
HPI Service Family Medicine Primary Care Physician No Primary Care Physician Admission Diagnosis Diagnoses: Chief Complaint: Altered mental status International Travel<30 Days: No Contact w/Intl Traveler<30days: No Known Affected Area: No History of Present Illness Patient is a 67-year-old male with a past medical history significant for cirrhosis who presents today for altered mental status. The majority of the history is taken per chart review as patient is a poor historian. Per chart review, patient was brought to the ED by [facility] due to altered mental status. He was recently discharged from [facility] and sent home with home health. The home health nurses called [facility] for altered mental status. History is limited as patient is currently altered. (Ruby Soto MD, R3) Review of Systems ROS Limitations: Altered Mental Status Psychiatric: COMPLAINS OF: Confusion (Ruby Soto MD, R3) Past Family Social History Past Medical History Per EMR: Atrial fibrillation not on anticoagulation DVT Cirrhosis Past Surgical History Per EMR: Cholecystectomy Reported Medications Reported Meds & Active Scripts Active Pantoprazole (Pantoprazole Sodium) 40 Mg Tab 40 Mg PO DAILY Furosemide 40 Mg Tab 40 Mg PO BID 30 Days Reported Sucralfate 1 Gram Tab 1 Gm PO QID on empty stomach Spironolactone 25 Mg Tab 25 Mg PO BIDPC (Ruby Soto MD, R3) Allergies: Coded Allergies: No Known Allergies (Unverified Allergy, Unknown, 11/19/17) Active Ordered Medications Current Medications Medications (Trade) Dose Ordered Sig/Michael Route Start Time Stop Time Status Last Admin (NS Flush) 2 ml UNSCH PRN IV FLUSH 11/19/17 17:30 (NS Flush) 2 ml BID IV FLUSH 11/19/17 21:00 (Lasix) 40 mg BID PO 11/19/17 21:00 (Protonix) 40 mg DAILY PO 11/20/17 09:00 (Aldactone) 25 mg BIDPC PO 11/19/17 18:00 11/19/17 20:55 (Carafate) 1 gm QID PO 11/19/17 18:00 11/19/17 20:56 Sodium Chloride 1,000 ml @ 115 mls/hr [id number] IV 11/19/17 17:45 11/19/17 20:02 Ceftriaxone Sodium 1000 mg/ Sodium Chloride 100 ml @ 200 mls/hr Q24H IV 11/20/17 16:00 (Lactulose Liq) 30 ml BID PO 11/20/17 09:00 Family History Unable to be obtained due to altered mental status Social History Unable to be obtained due to altered mental status (Ruby Soto MD, R3) Physical Exam Vital Signs Vital Signs Date Time Temp Pulse Resp B/P (MAP) Pulse Ox O2 Delivery O2 Flow Rate FiO2 11/19/17 15:15 80 16 101/55 (70) 98 Room Air 11/19/17 14:35 98.6 88 16 99/55 (70) 98 Physical Exam GENERAL: This is a well-nourished, well-developed male patient, who appears fatigued. SKIN: No rashes, ecchymoses or lesions. Cool and dry. Jaundice. HEAD: Atraumatic. Normocephalic. EYES: Pupils equal round and reactive. Extraocular motions intact. Scleral icterus. No injection or drainage. ENT: Nose without bleeding, purulent drainage or septal hematoma. Throat without erythema, tonsillar hypertrophy or exudate. Uvula midline. Airway patent. Top dentures in place. NECK: Trachea midline. No JVD or lymphadenopathy. Supple, nontender, no meningeal signs. CARDIOVASCULAR: Regular rate and rhythm without murmurs, gallops, or rubs. RESPIRATORY: Clear to auscultation. Breath sounds decreased in right lower lobe with crackles. No wheezes. GASTROINTESTINAL: Abdomen with multiple surgical scars present including a lateral incisional scar in the right upper quadrant, a horizontal midabdominal scar, an umbilical scar, and 2 small incisional scars in the right middle abdomen. Some tenderness to palpation, nondistended. Soft. Small amount of ascites. No palpable masses. No guarding. MUSCULOSKELETAL: Extremities with 1+ pitting edema. Patient able to lift both legs against gravity. NEUROLOGICAL: Awake but drowsy. Oriented to person but not to place or time. Follows commands. Cranial nerves II through XII intact. Motor and sensory grossly within normal limits. Unable to complete a thought. Fragmented speech that is unrelated to the questions asked. Impairment in attention, reaction time , and working memory. Laboratory Laboratory Tests Test 11/19/17 14:45 11/19/17 14:55 11/19/17 15:15 White Blood Count 10.9 Red Blood Count 2.15 Hemoglobin 8.7 Hematocrit 24.6 Mean Corpuscular Volume 114.5 Mean Corpuscular Hemoglobin 40.5 Mean Corpuscular Hemoglobin Concent 35.3 Red Cell Distribution Width 16.5 Platelet Count 66 Mean Platelet Volume 8.2 Neutrophils (%) (Auto) 60.9 Lymphocytes (%) (Auto) 25.4 Monocytes (%) (Auto) 8.0 Eosinophils (%) (Auto) 5.5 Basophils (%) (Auto) 0.2 Neutrophils # (Auto) 6.7 Lymphocytes # (Auto) 2.8 Monocytes # (Auto) 0.9 Eosinophils # (Auto) 0.6 Basophils # (Auto) 0.0 CBC Comment AUTO DIFF Differential Total Cells Counted 100 Neutrophils % (Manual) 66 Band Neutrophils % 10 Lymphocytes % 14 Monocytes % 3 Eosinophils % 7 Neutrophils # (Manual) 8.3 Differential Comment FINAL DIFF MANUAL Toxic Granulation 2+ Toxic Vacuolation PRESENT Dohle Bodies PRESENT Platelet Estimate LOW Platelet Morphology Comment NORMAL Spherocytes 1+ Acanthocytes OCC Prothrombin Time 20.3 Prothromb Time International Ratio 2.0 Activated Partial Thromboplast Time 34.1 Blood Urea Nitrogen 32 Creatinine 2.45 Random Glucose 77 Total Protein 7.3 Albumin 1.8 Calcium Level 7.9 Alkaline Phosphatase 91 Aspartate Amino Transf (AST/SGOT) 38 Alanine Aminotransferase (ALT/SGPT) 15 Total Bilirubin 7.1 Sodium Level 141 Potassium Level 4.0 Chloride Level 105 Carbon Dioxide Level 27.1 Anion Gap 9 Estimat Glomerular Filtration Rate 26 Total Creatine Kinase 78 Troponin I LESS THAN 0.02 Ethyl Alcohol Level LESS THAN 3 Ammonia 70 Urine Color DARK-BROWN Urine Turbidity HAZY Urine pH 5.0 Urine Specific [place] 1.022 Urine Protein 30 Urine Glucose (UA) NEG Urine Ketones TRACE Urine Occult Blood SMALL Urine Nitrite NEG Urine Bilirubin SMALL Urine Urobilinogen 4.0 Urine Leukocyte Esterase TRACE Urine RBC 6 Urine WBC 3 Urine Squamous Epithelial Cells <1 Urine Bacteria FEW Urine Hyaline Casts 10 Urine Mucus FEW Microscopic Urinalysis Comment CATH-CULTURE IND Date/Time Source Procedure Growth Status 11/19/17 15:15 Urine Catheterized Urine Urine Culture Pending Received (Ruby Soto MD, R3) Result Diagram: 11/19/17 1445 11/19/17 1445 Imaging Last Impressions Head CT 11/19/17 1431 Signed Impressions: Service Date/Time: Sunday, November 19, 2017 14:47 - CONCLUSION: Stable unremarkable exam for age. Donte Samuels MD Chest X-Ray 11/19/17 1431 Signed Impressions: Service Date/Time: Sunday, November 19, 2017 15:12 - CONCLUSION: 1. Right lower lung zone airspace disease and volume loss consistent with atelectasis with probable small effusion. Dustin Melo MD (Ruby Soto MD, R3) Caprini VTE Risk Assessment Caprini VTE Risk Assessment: No/Low Risk (score <= 1) VTE Pharm Contraindication: Coagulopathy,INR elevated (Cirrhosis- INR 2.0) Caprini Risk Assessment Model Point Value = 1 Point Value = 2 Point Value = 3 Point Value = 5 Age 41-60 Minor surgery BMI > 25 kg/m2 Swollen legs Varicose veins or History of unexplained or recurrent spontaneous Oral contraceptives or hormone replacement Sepsis (< 1 month) Serious lung disease, including pneumonia (< 1 month) Abnormal pulmonary function Acute myocardial infarction Congestive heart failure (< 1 month) History of inflammatory bowel disease Medical patient at bed rest Age 61-74 Arthroscopic surgery Major open surgery (> 45 min) Laparoscopic surgery (> 45 min) Malignancy Confined to bed (> 72 hours) Immobilizing plaster cast Central venous access Age >= 75 History of VTE Family history of VTE Factor V Leiden Prothrombin [id number] Lupus anticoagulant Anticardiolipin antibodies Elevated serum homocysteine Heparin-induced thrombocytopenia Other congenital or acquired thrombophilia Stroke (< 1 month) Elective arthroplasty Hip, pelvis, or leg fracture Acute spinal cord injury (< 1 month) Prophylaxis Regimen Total Risk Factor Score Risk Level Prophylaxis Regimen 0-1 Low Early ambulation 2 Moderate Order ONE of the following: *Sequential Compression Device (SCD) *Heparin 5000 units SQ BID 3-4 Higher Order ONE of the following medications: *Heparin 5000 units SQ TID *Enoxaparin/Lovenox 40 mg SQ daily (WT < 150 kg, CrCl > 30 mL/min) *Enoxaparin/Lovenox 30 mg SQ daily (WT < 150 kg, CrCl > 10-29 mL/min) *Enoxaparin/Lovenox 30 mg SQ BID (WT < 150 kg, CrCl > 30 mL/min) AND/OR *Sequential Compression Device (SCD) 5 or more Highest Order ONE of the following medications: *Heparin 5000 units SQ TID (Preferred with Epidurals) *Enoxaparin/Lovenox 40 mg SQ daily (WT < 150 kg, CrCl > 30 mL/min) *Enoxaparin/Lovenox 30 mg SQ daily (WT < 150 kg, CrCl > 10-29 mL/min) *Enoxaparin/Lovenox 30 mg SQ BID (WT < 150 kg, CrCl > 30 mL/min) AND *Sequential Compression Device (SCD) (Ruby Soto MD, R3) Assessment and Plan Assessment and Plan Patient is a 67-year-old male with a past medical history significant for cirrhosis who presents today for altered mental status. Code Status Full Code Discussed Condition With dw Dr. Dooley and Dr. Gonzalez (Ruby Soto MD, R3) Attending Attestation THIS CASE WAS DISCUSSED WITH THE RESIDENT PHYSICIANS. I HAVE REVIEWED THE RECORD AND AGREE WITH THE ABOVE NOTE AND PLAN OF CARE WAS DISCUSSED. I HAVE AUTHORIZED THE ORDER FOR ADMISSION TO AN IN-PATIENT STATUS. (Jonatan Gonzalez MD) Problem List: (1) Altered mental status ICD Codes: R41.82 - Altered mental status, unspecified Status: Acute Plan: May be secondary to hepatic encephalopathy precipitated by infection versus alcohol versus constipation versus dehydration. Head CT negative Alcohol level wnl Ammonia elevated at 70 No hypokalemia or hyponatremia - Obtain hemoccult - Obtain UDS, lactic acid, TSH - follow urine culture - IV fluids for DIONTE - Supplemental O2 to maintain O2 sat >92% - Avoid hepatotoxic medications - Ritu-colace to prevent constipation - Blood cultures x 2 - Monitor CMP (2) Cirrhosis ICD Codes: K74.60 - Unspecified cirrhosis of liver Plan: Chest x-ray shows right lower lung zone airspace disease and volume loss consistent with atelectasis with probable small effusion Ammonia elevated at 70 Bilirubin elevated at 7.1, AST elevated at 38, ALT within normal limits, alkaline phosphatase within normal limits INR elevated at 2.0 Thrombocytopenia of 66 Electrolytes within normal limits Albumin low at 1.8 - IV fluid hydration with NS @ 115ml/hr - Lactulose 30ml PO BID - Continue home dose of spironolactone 25mg PO BID - Continue home dose of Lasix 40mg PO BID (3) Cystitis ICD Codes: N30.90 - Cystitis, unspecified without hematuria Status: Acute Plan: UA significant for trace leukocyte esterase, few bacteria, few mucus, small occult blood - Follow urine culture - Follow blood cultures x 2 - Rocephin 1g IV Q24H (started 11/19) (4) DIONTE (acute kidney injury) ICD Codes: N17.9 - Acute kidney failure, unspecified Status: Acute Plan: May be secondary to hepatorenal syndrome versus dehydration versus ATN versus obstruction. Creatinine elevated at 2.[address] for AMS, draining bloody urine - Obtain urine sodium - Obtain renal ultrasound - Hydration with normal saline at maintenance rate of 115ml/hr - Treatment for acute cystitis as above - Continue to monitor creatinine, consider treatment for hepatorenal syndrome with terlipressin and albumin if indicated. May also consider nephrology consult if no improvement is noted. (5) Nutrition, metabolism, and development symptoms ICD Codes: R63.8 - Other symptoms and signs concerning food and fluid intake Status: Acute Plan: Fluids: NS @ 115ml/hr Electrolytes: wnl, continue to monitor and replete PRN Nutrition: NPO for AMS DVT PPx: hold chemical anticoagulation given elevated INR of 2.0 in the setting of cirrhosis. SCD's. (Ruby Soto MD, R3) Physician Certification 2 Midnight Certification Type: Admission for Inpatient Services Order for Inpatient Services The services are ordered in accordance with Medicare regulations or non- Medicare payer requirements, as applicable. In the case of services not specified as inpatient-only, they are appropriately provided as inpatient services in accordance with the 2-midnight benchmark. Estimated LOS (days): 3 days is the estimated time the patient will need to remain in the hospital, assuming treatment plan goals are met and no additional complications. Post-Hospital Plan: Not yet determined (Ruby Soto MD, R3) Problem Qualifiers (1) Altered mental status: Qualified Codes: R41.0 - Disorientation, unspecified (2) Cirrhosis: Qualified Codes: K70.31 - Alcoholic cirrhosis of liver with ascites Ruby Soto MD, R3 Nov 19, 2017 17:30 Jonatan Gonzalez MD Nov 20, 2017 11:21
[2017-11-19] MEDS ORDERED: VANCOMYCIN INJ 1,500 MG in SODIUM CHLORID 0.9% 500 ML INJ 500 ML IV ONE (17:45)
[2017-11-19 19:52] LABS: MAGNESIUM 1.8 MG/DL (1.5-2.5); PHOSPHORUS 2.6 MG/DL (2.5-4.9)
[2017-11-19] MEDS: SODIUM CHLOR 0.9% 1000 ML INJ 1,000 ML IV SCH (20:02)
[2017-11-19] MEDS: SPIRONOLACTONE 25 MG TAB PO SCH (20:55)
[2017-11-19] MEDS: SUCRALFATE 1 GM TAB PO SCH ×2 (20:56→22:02)
[2017-11-19] MEDS: SODIUM CHLORIDE 0.9% FLUSH 10 ML FLUSH IV FLUSH SCH (21:00)
--- NOTE | 2017-11-19 21:26 | RADRPT ---
EXAM DATE/TIME: 11/19/2017 19:50 [facility] COMPARISON: No previous studies available for comparison. INDICATIONS : Hematuria. MEDICAL HISTORY : Atrial fibrillation. Hiatal hernia. Arthritis. SURGICAL HISTORY : Cholecystectomy. Right thumb amputation. Stomach surgery. ENCOUNTER: Initial ACUITY: 1 day PAIN SCORE: 0/10 LOCATION: Bilateral flank MEASUREMENTS: RIGHT KIDNEY: 7.9 x 4.9 x 4.7 cm LEFT KIDNEY: 7.9 x 5.3 x 3.4 cm FINDINGS: The kidneys are small in size bilaterally. There is no hydronephrosis or solid renal mass. Some ascit es is noted adjacent to the right kidney and liver. A Gasca catheter is noted within the nondistended urinary bladder. CONCLUSION: 1. Small kidneys bilaterally. 2. No hydronephrosis or solid renal mass identified sonographically. 3. Some ascites within the right abdomen. 4. Limited evaluation of the urinary bladder which is nondistended. Tanvir Alarcon MD on November 19, 2017 at 21:22 Board Certified Radiologist. This report was verified electronically.
[2017-11-19] MEDS: FUROSEMIDE 40 MG TAB PO SCH (22:03)
[2017-11-19 22:44] VITALS: BP 99/61; PULSE 88; RESP 19; O2SAT 96
[2017-11-20] VITALS (11 sets, daily range): BP systolic 90–108; BP diastolic 54–59; PULSE 85–97; RESP 18–20; TEMP 97.4–97.8; O2SAT 94–97
[2017-11-20] MEDS: SODIUM CHLOR 0.9% 1000 ML INJ 1,000 ML IV SCH ×3 (02:27→20:35)
[2017-11-20 06:12] LABS: AUTOMATED NEUTROPHIL # 4.4 TH/MM3 (1.8-7.7); BASOPHIL % 0.4 % (0.0-2.0); EOSINOPHIL # 0.6 TH/MM3 (0-0.4); EOSINOPHIL % 7.7 % (0.0-4.0); HEMATOCRIT 23.4 % (39.0-51.0); HEMOGLOBIN 8.3 GM/DL (13.0-17.0); LYMPH % 28.1 % (9.0-44.0); LYMPHOCYTE # 2.2 TH/MM3 (1.0-4.8); MEAN CELL VOLUME 114.3 FL (80.0-100.0); MEAN CORPUSCULAR HEMOGLOBIN 40.7 PG (27.0-34.0); MEAN CORPUSCULAR HGB CONC 35.6 % (32.0-36.0); MEAN PLATELET VOLUME 8.2 FL (7.0-11.0); MONO % 7.8 % (0.0-8.0); MONOCYTE # 0.6 TH/MM3 (0-0.9); PLATELET COUNT 61 TH/MM3 (150-450); RED BLOOD COUNT 2.05 MIL/MM3 (4.50-5.90); RED CELL DISTRIBUTION WIDTH 16.6 % (11.6-17.2); WHITE BLOOD COUNT 7.9 TH/MM3 (4.0-11.0)
[2017-11-20 06:35] LABS: ALBUMIN 1.6 GM/DL (3.4-5.0); ALT (GPT) 14 U/L (12-78); AST (GOT) 36 U/L (15-37); BICARBONATE 27.7 MEQ/L (21.0-32.0); BLOOD UREA NITROGEN 35 MG/DL (7-18); CALCIUM 7.9 MG/DL (8.5-10.1); CHLORIDE 109 MEQ/L (98-107); CREATININE 2.15 MG/DL (0.60-1.30); GLOMERULAR FILTRATION RATE 31 ML/MIN (>89); GLUCOSE,RANDOM 65 MG/DL (74-106); SODIUM (NA) 142 MEQ/L (136-145)
[2017-11-20 06:38] LABS: ALKALINE PHOSPHATASE 71 U/L (45-117); TOTAL BILIRUBIN ADULT 6.4 MG/DL (0.2-1.0); TOTAL PROTEIN 6.5 GM/DL (6.4-8.2)
[2017-11-20] MEDS ORDERED: PNEUMOCOCCAL POLYVALENT INJ 25 MCG/0.5 ML SYR IM ONE (09:00)
[2017-11-20] MEDS ORDERED: PANTOPRAZOLE SOD 40 MG DELAYED RELEASE TAB PO SCH (09:00)
[2017-11-20] MEDS ORDERED: LACTULOSE SYRUP 20 GM/30 ML CUP PO SCH (09:00)
[2017-11-20] MEDS ORDERED: INFLUENZA VIRUS VACCINE (QUADRIVALENT) 0.5 ML SYR IM ONE (09:00)
[2017-11-20] MEDS: SODIUM CHLORIDE 0.9% FLUSH 10 ML FLUSH IV FLUSH SCH ×2 (09:00→20:35)
--- NOTE | 2017-11-20 11:21 | HHI.HP ---
HPI Service Family Medicine Primary Care Physician No Primary Care Physician Admission Diagnosis Diagnoses: (1) Altered mental status (2) Cirrhosis (3) Cystitis (4) DIONTE (acute kidney injury) (5) Nutrition, metabolism, and development symptoms International Travel<30 Days: No Contact w/Intl Traveler<30days: No Known Affected Area: No History of Present Illness This is a 67-year-old male with a known history of cirrhosis and heavy alcohol use who was brought to the emergency department by [facility] due to altered mental status after being found confused at home by home health care. He was recently hospitalized at [facility] from 11/12/17 through 11/16/17 for generalized weakness, mental status changes and falls. While at [facility], he was evaluated by the GI service for pancytopenia and abnormal LFTs. He was treated for alcohol withdrawal with Ativan and was given a dose of IV Venofer for his anemia. He had a significant workup documented as below: 11/14/17 - EGD for evaluation of anemia: LA grade D esophagitis with no bleeding found in the lower two thirds of the esophagus. 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 Mild portal hypertensive gastropathy was found in the gastric fundus. The examined jejunum was normal. 11/12/17 - Ultrasound of the abdomen: Limited study. Small heterogenous echogenic liver. Question cirrhosis. Status post cholecystectomy. Small amount of ascites. 11/12/17 MRI of the abdomen: Unable to find a formal report of this but is mentioned in the [facility] notes as a poor study due to patient movement Upon discharge from [facility], he had lab work showing a hemoglobin of 7.9 and creatinine of 1.01 - he was discharged home with home health care. Home health care arrived at his house and found him altered and confused and therefore called you back to have him brought to the hospital. In the emergency department he was found to have acute kidney failure as well as encephalopathy with an elevated ammonia. He was given lactulose 1 and gentle IV hydration, and his urinalysis was indicative of a urinary tract infection and he was started on Rocephin. This morning on rounds he is somewhat more interactive, but is still altered. He is oriented to person and place, however is not oriented to time or year, stating that it is 1998. He is able to state that he has pain in his abdomen and his right hip. He does not recall what happened at home and does not recall any trauma or falls since being discharged from [facility], but cannot definitively say that he did not have any falls at home. Past Family Social History Past Medical History Per EMR: Atrial fibrillation not on anticoagulation DVT Cirrhosis Past Surgical History Per EMR: Cholecystectomy Allergies: Coded Allergies: No Known Allergies (Unverified Allergy, Unknown, 11/19/17) Family History Unable to be obtained due to altered mental status Social History Unable to be obtained due to altered mental status Physical Exam Vital Signs Vital Signs Date Time Temp Pulse Resp B/P (MAP) Pulse Ox O2 Delivery O2 Flow Rate FiO2 11/20/17 09:32 97 11/20/17 08:07 97.7 90 20 95/54 (68) 97 11/20/17 08:00 88 11/20/17 05:44 97.4 87 19 94/55 (68) 97 11/20/17 04:04 85 11/20/17 01:25 97.4 88 19 90/54 (66) 94 11/20/17 00:01 11/19/17 22:44 88 19 99/61 (74) 96 Room Air 11/19/17 15:15 80 16 101/55 (70) 98 Room Air 11/19/17 14:35 98.6 88 16 99/55 (70) 98 Physical Exam GENERAL: Elderly-appearing male, appears mildly jaundiced, lying in bed in no obvious distress SKIN: Jaundiced throughout with a few upper extremity excoriations. HEAD: Atraumatic. Normocephalic. EYES: Pupils equal round and reactive. Extraocular motions intact. Scleral icterus. No injection or drainage. CARDIOVASCULAR: Regular rate and rhythm without murmurs, gallops, or rubs. RESPIRATORY: Clear to auscultation. Breath sounds decreased in right lower lobe with crackles. No wheezes. GASTROINTESTINAL: Abdomen with multiple surgical scars present including a lateral incisional scar in the right upper quadrant, a horizontal midabdominal scar, an umbilical scar, and 2 small incisional scars in the right middle abdomen. Some tenderness to palpation without guarding or rebound. Abdomen is mildly distended. Soft. Small amount of ascites. No palpable masses. MUSCULOSKELETAL: Extremities with 1+ pitting edema. Patient able to lift both legs against gravity. Tender to palpation along the lateral right hip. Some pain with internal rotation of the right hip. No visible shortening or external rotation of the right hip. NEUROLOGICAL: Awake but drowsy. Oriented to person and place but not time. Follows commands. Cranial nerves II through XII intact. Motor and sensory grossly within normal limits. Fragmented speech that is unrelated to the questions asked. Impairment in attention, reaction time, and working memory. Laboratory Laboratory Tests Test 11/19/17 14:45 11/19/17 14:55 11/19/17 15:15 11/19/17 19:40 White Blood Count 10.9 Red Blood Count 2.15 Hemoglobin 8.7 Hematocrit 24.6 Mean Corpuscular Volume 114.5 Mean Corpuscular Hemoglobin 40.5 Mean Corpuscular Hemoglobin Concent 35.3 Red Cell Distribution Width 16.5 Platelet Count 66 Mean Platelet Volume 8.2 Neutrophils (%) (Auto) 60.9 Lymphocytes (%) (Auto) 25.4 Monocytes (%) (Auto) 8.0 Eosinophils (%) (Auto) 5.5 Basophils (%) (Auto) 0.2 Neutrophils # (Auto) 6.7 Lymphocytes # (Auto) 2.8 Monocytes # (Auto) 0.9 Eosinophils # (Auto) 0.6 Basophils # (Auto) 0.0 CBC Comment AUTO DIFF Differential Total Cells Counted 100 Neutrophils % (Manual) 66 Band Neutrophils % 10 Lymphocytes % 14 Monocytes % 3 Eosinophils % 7 Neutrophils # (Manual) 8.3 Differential Comment FINAL DIFF MANUAL Toxic Granulation 2+ Toxic Vacuolation PRESENT Dohle Bodies PRESENT Platelet Estimate LOW Platelet Morphology Comment NORMAL Spherocytes 1+ Acanthocytes OCC Prothrombin Time 20.3 Prothromb Time International Ratio 2.0 Activated Partial Thromboplast Time 34.1 Blood Urea Nitrogen 32 Creatinine 2.45 Random Glucose 77 Total Protein 7.3 Albumin 1.8 Calcium Level 7.9 Alkaline Phosphatase 91 Aspartate Amino Transf (AST/SGOT) 38 Alanine Aminotransferase (ALT/SGPT) 15 Total Bilirubin 7.1 Sodium Level 141 Potassium Level 4.0 Chloride Level 105 Carbon Dioxide Level 27.1 Anion Gap 9 Estimat Glomerular Filtration Rate 26 Phosphorus Level 2.6 Magnesium Level 1.8 Total Creatine Kinase 78 Troponin I LESS THAN 0.02 B-Type Natriuretic Peptide 122 Thyroid Stimulating Hormone 3rd Gen 6.440 Ethyl Alcohol Level LESS THAN 3 Ammonia 70 Urine Color DARK-BROWN Urine Turbidity HAZY Urine pH 5.0 Urine Specific [place] 1.022 Urine Protein 30 Urine Glucose (UA) NEG Urine Ketones TRACE Urine Occult Blood SMALL Urine Nitrite NEG Urine Bilirubin SMALL Urine Urobilinogen 4.0 Urine Leukocyte Esterase TRACE Urine RBC 6 Urine WBC 3 Urine Squamous Epithelial Cells <1 Urine Bacteria FEW Urine Hyaline Casts 10 Urine Mucus FEW Microscopic Urinalysis Comment CATH-CULTURE IND Urine Random Sodium 5 Urine Opiates Screen NEG Urine Barbiturates Screen NEG Urine Amphetamines Screen NEG Urine Benzodiazepines Screen NEG Urine Cocaine Screen NEG Urine Cannabinoids Screen NEG Lactic Acid Level 2.4 Test 11/20/17 05:35 White Blood Count 7.9 Red Blood Count 2.05 Hemoglobin 8.3 Hematocrit 23.4 Mean Corpuscular Volume 114.3 Mean Corpuscular Hemoglobin 40.7 Mean Corpuscular Hemoglobin Concent 35.6 Red Cell Distribution Width 16.6 Platelet Count 61 Mean Platelet Volume 8.2 Neutrophils (%) (Auto) 56.0 Lymphocytes (%) (Auto) 28.1 Monocytes (%) (Auto) 7.8 Eosinophils (%) (Auto) 7.7 Basophils (%) (Auto) 0.4 Neutrophils # (Auto) 4.4 Lymphocytes # (Auto) 2.2 Monocytes # (Auto) 0.6 Eosinophils # (Auto) 0.6 Basophils # (Auto) 0.0 CBC Comment AUTO DIFF Differential Comment AUTO DIFF CONFIRMED Platelet Estimate LOW Platelet Morphology Comment NORMAL Blood Urea Nitrogen 35 Creatinine 2.15 Random Glucose 65 Total Protein 6.5 Albumin 1.6 Calcium Level 7.9 Alkaline Phosphatase 71 Aspartate Amino Transf (AST/SGOT) 36 Alanine Aminotransferase (ALT/SGPT) 14 Total Bilirubin 6.4 Sodium Level 142 Potassium Level 4.1 Chloride Level 109 Carbon Dioxide Level 27.7 Anion Gap 5 Estimat Glomerular Filtration Rate 31 Lactic Acid Level 1.6 Ammonia 91 Date/Time Source Procedure Growth Status 11/19/17 19:35 Blood Peripheral Aerobic Blood Culture Pending Received 11/19/17 19:35 Blood Peripheral Anaerobic Blood Culture Pending Received 11/19/17 15:15 Urine Catheterized Urine Urine Culture Pending Received Result Diagram: 11/20/17 0535 11/20/17 0535 Imaging Last [address] 11/19/17 1431 Signed Impressions: Service Date/Time: Sunday, November 19, 2017 14:47 - CONCLUSION: Stable unremarkable exam for age. Donte Samuels MD Chest X-Ray 11/19/17 1431 Signed Impressions: Service Date/Time: Sunday, November 19, 2017 15:12 - CONCLUSION: 1. Right lower lung zone airspace disease and volume loss consistent with atelectasis with probable small effusion. Dustin Melo MD Renal Ultrasound 11/19/17 0000 Signed Impressions: Service Date/Time: Sunday, November 19, 2017 19:50 - CONCLUSION: 1. Small kidneys bilaterally. 2. No hydronephrosis or solid renal mass identified sonographically. 3. Some ascites within the right abdomen. 4. Limited evaluation of the urinary bladder which is nondistended. MD Anh López VTE Risk Assessment Caprini VTE Risk Assessment: No/Low Risk (score <= 1) VTE Pharm Contraindication: Coagulopathy,INR elevated (Cirrhosis- INR 2.0) Caprini Risk Assessment Model Point Value = 1 Point Value = 2 Point Value = 3 Point Value = 5 Age 41-60 Minor surgery BMI > 25 kg/m2 Swollen legs Varicose veins or History of unexplained or recurrent spontaneous Oral contraceptives or hormone replacement Sepsis (< 1 month) Serious lung disease, including pneumonia (< 1 month) Abnormal pulmonary function Acute myocardial infarction Congestive heart failure (< 1 month) History of inflammatory bowel disease Medical patient at bed rest Age 61-74 Arthroscopic surgery Major open surgery (> 45 min) Laparoscopic surgery (> 45 min) Malignancy Confined to bed (> 72 hours) Immobilizing plaster cast Central venous access Age >= 75 History of VTE Family history of VTE Factor V Leiden Prothrombin [id number] Lupus anticoagulant Anticardiolipin antibodies Elevated serum homocysteine Heparin-induced thrombocytopenia Other congenital or acquired thrombophilia Stroke (< 1 month) Elective arthroplasty Hip, pelvis, or leg fracture Acute spinal cord injury (< 1 month) Prophylaxis Regimen Total Risk Factor Score Risk Level Prophylaxis Regimen 0-1 Low Early ambulation 2 Moderate Order ONE of the following: *Sequential Compression Device (SCD) *Heparin 5000 units SQ BID 3-4 Higher Order ONE of the following medications: *Heparin 5000 units SQ TID *Enoxaparin/Lovenox 40 mg SQ daily (WT < 150 kg, CrCl > 30 mL/min) *Enoxaparin/Lovenox 30 mg SQ daily (WT < 150 kg, CrCl > 10-29 mL/min) *Enoxaparin/Lovenox 30 mg SQ BID (WT < 150 kg, CrCl > 30 mL/min) AND/OR *Sequential Compression Device (SCD) 5 or more Highest Order ONE of the following medications: *Heparin 5000 units SQ TID (Preferred with Epidurals) *Enoxaparin/Lovenox 40 mg SQ daily (WT < 150 kg, CrCl > 30 mL/min) *Enoxaparin/Lovenox 30 mg SQ daily (WT < 150 kg, CrCl > 10-29 mL/min) *Enoxaparin/Lovenox 30 mg SQ BID (WT < 150 kg, CrCl > 30 mL/min) AND *Sequential Compression Device (SCD) Assessment and Plan Assessment and Plan Patient is a 67-year-old male with a past medical history significant for cirrhosis who presents today for altered mental status. Problem List: (1) Altered mental status ICD Codes: R41.82 - Altered mental status, unspecified Status: Acute Plan: Encephalopathic due to acute decompensation of cirrhosis versus infection versus hepatorenal syndrome Nephrology consulted for further evaluation GI consulted for further evaluation Palliative medicine consult to clarify goals of treatment Head CT negative Alcohol level wnl Ammonia elevated at 70 on arrival and increased to 91 this morning No hypokalemia or hyponatremia Urinary tract infection treated as below and urine culture pending UDS and tox screen negative, alcohol level negative TSH mildly elevated at 6.4 Lactulose 30 mg 4 times a day ordered - Cleared by speech therapy for nectar thickened liquids - Supplemental O2 to maintain O2 sat >92% - Avoid hepatotoxic medications - Ritu-colace to prevent constipation - Blood cultures x 2 pending - Monitor CMP (2) Cirrhosis ICD Codes: K74.60 - Unspecified cirrhosis of liver Plan: GI consulted for further evaluation and management - MELD score of 30 on arrival with a 50% mortality rate Lactulose 30 mg 4 times a day ordered - Ammonia 91 this morning, continue to monitor with labs Bilirubin elevated at 7.1, AST elevated at 38, ALT within normal limits, alkaline phosphatase within normal limits INR elevated at 2.0 with no anticoagulation Albumin low at 1.8 - will supplement with boost protein Continue IV fluid hydration with NS @ 115ml/hr - Lactulose 30ml PO 4 times a day - Continue home dose of spironolactone 25mg PO BID - Continue home dose of Lasix 40mg PO BID (3) Cystitis ICD Codes: N30.90 - Cystitis, unspecified without hematuria Status: Acute Plan: UA significant for trace leukocyte esterase, few bacteria, few mucus, small occult blood - Follow urine culture - Follow blood cultures x 2 - Rocephin 1g IV Q24H (started 11/19) (4) DIONTE (acute kidney injury) ICD Codes: N17.9 - Acute kidney failure, unspecified Status: Acute Plan: May be secondary to hepatorenal syndrome versus dehydration versus ATN versus obstruction. Creatinine elevated at 2.45 on arrival, 2.15 today after a gentle IV hydration [place] in place for AMS, dark-colored urine Luz Marina Renal ultrasound showing small kidneys bilaterally with no hydronephrosis or solid renal mass identified - Hydration with normal saline at maintenance rate of 115ml/hr - Treatment for acute cystitis as above - Continue to monitor creatinine Nephrology consulted for possible treatment for hepatorenal syndrome (5) Anemia ICD Codes: D64.9 - Anemia, unspecified Status: Acute Plan: Lab work from [facility] shows a discharge hemoglobin of 7.9 - Hemoglobin 8.3 today EGD performed at [facility] reviewed showing esophagitis but no active bleeding Continue to monitor with lab work and transfuse as needed (6) Nutrition, metabolism, and development symptoms ICD Codes: R63.8 - Other symptoms and signs concerning food and fluid intake Status: Acute Plan: Fluids: NS @ 115ml/hr Electrolytes: wnl, continue to monitor and replete PRN Nutrition: Speech has performed for study and cleared for nectar thickened liquids DVT PPx: hold chemical anticoagulation given elevated INR of 2.0 in the setting of cirrhosis. SCD's. Physician Certification 2 Midnight Certification Type: Admission for Inpatient Services Order for Inpatient Services The services are ordered in accordance with Medicare regulations or non- Medicare payer requirements, as applicable. In the case of services not specified as inpatient-only, they are appropriately provided as inpatient services in accordance with the 2-midnight benchmark. Estimated LOS (days): 2 2 days is the estimated time the patient will need to remain in the hospital, assuming treatment plan goals are met and no additional complications. Post-Hospital Plan: Not yet determined Problem Qualifiers (1) Altered mental status: Qualified Codes: R41.0 - Disorientation, unspecified (2) Cirrhosis: Qualified Codes: K70.31 - Alcoholic cirrhosis of liver with ascites (3) Anemia: Qualified Codes: D64.89 - Other specified anemias Lisa,Jonatan MD Nov 20, 2017 11:21
[2017-11-20] MEDS: SPIRONOLACTONE 25 MG TAB PO SCH ×2 (12:03→18:26)
[2017-11-20] MEDS: SUCRALFATE 1 GM TAB PO SCH ×4 (12:03→20:35)
[2017-11-20] MEDS: LACTULOSE SYRUP 20 GM/30 ML CUP PO SCH ×3 (12:04→20:35)
[2017-11-20] MEDS: FUROSEMIDE 40 MG TAB PO SCH (12:04)
--- NOTE | 2017-11-20 13:16 | PD.CONS ---
HPI History of Present Illness This is a 67 year old male with cirrhosis, drinking who presented with AMS. 2- 3 days ago he started having trouble walking and talking. He has been vomiting for the last 2 weeks and admits coffee ground appearance. He was recently d/c from [facility]. Had EGD with Dr Russell 11/14/17 that found severe circumferential esophagitis, portal HTN gastropathy and was supposed to be on carafate, BID PPI but pt says he never filled these prescriptions. He was evaluated by our service 07/2017 at [facility] [place] and had a colonoscopy 08/21/17 that found diverticulosis and hemorrhoids and EGD on same day that found severe esophagitis, gastric sleeve, stricture stomach surgical changes. At that time he was drinking heavily. He also had liver w/u and was pos for HCV antibody. THe rest of his liver work up in july was unremarkable. He says he quit drinking 2-3 weeks ago. Denies diarrhea, blood in stool, jaundice, tarry stool, abd swelling. (Marla Haines) PFSH Past Medical History cirrhosis Past Surgical History cholecystecomy gastric bypass (Marla Haines) Coded Allergies: No Known Allergies (Unverified Allergy, Unknown, 11/19/17) Family History denies Social History hx heavy drinking but quit 2-3 weeks ago denies tobacco or illicit drug use (Marla Haines) Review of Systems Constitutional: COMPLAINS OF: Fatigue Eyes: DENIES: Blurred vision Ears, nose, mouth, throat: DENIES: Hearing loss Respiratory: DENIES: Cough Cardiovascular: DENIES: Chest pain Gastrointestinal: COMPLAINS OF: Nausea, Vomiting, Hematemesis, DENIES: Abdominal pain, Black stools, Bloody stools, Diarrhea Integumentary: DENIES: Jaundice Neurologic: COMPLAINS OF: Abnormal gait Psychiatric: COMPLAINS OF: Confusion (Marla Haines) GI Exam Vitals I&O Vital Signs Date Time Temp Pulse Resp B/P (MAP) Pulse Ox O2 Delivery O2 Flow Rate FiO2 11/20/17 12:29 97.4 94 20 108/56 (73) 97 11/20/17 09:32 97 11/20/17 08:07 97.7 90 20 95/54 (68) 97 11/20/17 08:00 88 11/20/17 05:44 97.4 87 19 94/55 (68) 97 11/20/17 04:04 85 11/20/17 01:25 97.4 88 19 90/54 (66) 94 11/20/17 00:01 11/19/17 22:44 88 19 99/61 (74) 96 Room Air 11/19/17 15:15 80 16 101/55 (70) 98 Room Air 11/19/17 14:35 98.6 88 16 99/55 (70) 98 I/O 11/19/17 11/19/17 11/19/17 11/20/17 11/20/17 11/20/17 07:00 15:00 23:00 07:00 15:00 23:00 Intake Total 600 ml 1000 ml Output Total 450 ml Balance 600 ml 550 ml Intake IV Total 600 ml 1000 ml Output Urine Total 450 ml Imaging Last Impressions Head CT 11/19/17 1431 Signed Impressions: Service Date/Time: Sunday, November 19, 2017 14:47 - CONCLUSION: Stable unremarkable exam for age. Donte Samuels MD Chest X-Ray 11/19/17 1431 Signed Impressions: Service Date/Time: Sunday, November 19, 2017 15:12 - CONCLUSION: 1. Right lower lung zone airspace disease and volume loss consistent with atelectasis with probable small effusion. Dustin Melo MD Renal Ultrasound 11/19/17 0000 Signed Impressions: Service Date/Time: Sunday, November 19, 2017 19:50 - CONCLUSION: 1. Small kidneys bilaterally. 2. No hydronephrosis or solid renal mass identified sonographically. 3. Some ascites within the right abdomen. 4. Limited evaluation of the urinary bladder which is nondistended. Tanvir Alarcon MD Laboratory Test 11/19/17 14:45 11/19/17 14:55 11/19/17 15:15 11/19/17 19:40 White Blood Count 10.9 TH/MM3 Red Blood Count 2.15 MIL/MM3 Hemoglobin 8.7 GM/DL Hematocrit 24.6 % Mean Corpuscular Volume 114.5 FL Mean Corpuscular Hemoglobin 40.5 PG Mean Corpuscular Hemoglobin Concent 35.3 % Red Cell Distribution Width 16.5 % Platelet Count 66 TH/MM3 Mean Platelet Volume 8.2 FL Neutrophils (%) (Auto) 60.9 % Lymphocytes (%) (Auto) 25.4 % Monocytes (%) (Auto) 8.0 % Eosinophils (%) (Auto) 5.5 % Basophils (%) (Auto) 0.2 % Neutrophils # (Auto) 6.7 TH/MM3 Lymphocytes # (Auto) 2.8 TH/MM3 Monocytes # (Auto) 0.9 TH/MM3 Eosinophils # (Auto) 0.6 TH/MM3 Basophils # (Auto) 0.0 TH/MM3 CBC Comment AUTO DIFF Differential Total Cells Counted 100 Neutrophils % (Manual) 66 % Band Neutrophils % 10 % Lymphocytes % 14 % Monocytes % 3 % Eosinophils % 7 % Neutrophils # (Manual) 8.3 TH/MM3 Differential Comment FINAL DIFF MANUAL Toxic Granulation 2+ Toxic Vacuolation PRESENT Dohle Bodies PRESENT Platelet Estimate LOW Platelet Morphology Comment NORMAL Spherocytes 1+ Acanthocytes OCC Prothrombin Time 20.3 SEC Prothromb Time International Ratio 2.0 RATIO Activated Partial Thromboplast Time 34.1 SEC Blood Urea Nitrogen 32 MG/DL Creatinine 2.45 MG/DL Random Glucose 77 MG/DL Total Protein 7.3 GM/DL Albumin 1.8 GM/DL Calcium Level 7.9 MG/DL Alkaline Phosphatase 91 U/L Aspartate Amino Transf (AST/SGOT) 38 U/L Alanine Aminotransferase (ALT/SGPT) 15 U/L Total Bilirubin 7.1 MG/DL Sodium Level 141 MEQ/L Potassium Level 4.0 MEQ/L Chloride Level 105 MEQ/L Carbon Dioxide Level 27.1 MEQ/L Anion Gap 9 MEQ/L Estimat Glomerular Filtration Rate 26 ML/MIN Phosphorus Level 2.6 MG/DL Magnesium Level 1.8 MG/DL Total Creatine Kinase 78 U/L Troponin I LESS THAN 0.02 NG/ML B-Type Natriuretic Peptide 122 PG/ML Thyroid Stimulating Hormone 3rd Gen 6.440 uIU/ML Ethyl Alcohol Level LESS THAN 3 MG/DL Ammonia 70 MCMOL/L Urine Color DARK-BROWN Urine Turbidity HAZY Urine pH 5.0 Urine Specific [place] 1.022 Urine Protein 30 mg/dL Urine Glucose (UA) NEG mg/dL Urine Ketones TRACE mg/dL Urine Occult Blood SMALL Urine Nitrite NEG Urine Bilirubin SMALL Urine Urobilinogen 4.0 MG/DL Urine Leukocyte Esterase TRACE Urine RBC 6 /hpf Urine WBC 3 /hpf Urine Squamous Epithelial Cells <1 /hpf Urine Bacteria FEW /hpf Urine Hyaline Casts 10 /lpf Urine Mucus FEW /lpf Microscopic Urinalysis Comment CATH-CULTURE IND Urine Random Sodium 5 MEQ/L Urine Opiates Screen NEG Urine Barbiturates Screen NEG Urine Amphetamines Screen NEG Urine Benzodiazepines Screen NEG Urine Cocaine Screen NEG Urine Cannabinoids Screen NEG Lactic Acid Level 2.4 mmol/L Test 11/20/17 05:35 White Blood Count 7.9 TH/MM3 Red Blood Count 2.05 MIL/MM3 Hemoglobin 8.3 GM/DL Hematocrit 23.4 % Mean Corpuscular Volume 114.3 FL Mean Corpuscular Hemoglobin 40.7 PG Mean Corpuscular Hemoglobin Concent 35.6 % Red Cell Distribution Width 16.6 % Platelet Count 61 TH/MM3 Mean Platelet Volume 8.2 FL Neutrophils (%) (Auto) 56.0 % Lymphocytes (%) (Auto) 28.1 % Monocytes (%) (Auto) 7.8 % Eosinophils (%) (Auto) 7.7 % Basophils (%) (Auto) 0.4 % Neutrophils # (Auto) 4.4 TH/MM3 Lymphocytes # (Auto) 2.2 TH/MM3 Monocytes # (Auto) 0.6 TH/MM3 Eosinophils # (Auto) 0.6 TH/MM3 Basophils # (Auto) 0.0 TH/MM3 CBC Comment AUTO DIFF Differential Comment AUTO DIFF CONFIRMED Platelet Estimate LOW Platelet Morphology Comment NORMAL Blood Urea Nitrogen 35 MG/DL Creatinine 2.15 MG/DL Random Glucose 65 MG/DL Total Protein 6.5 GM/DL Albumin 1.6 GM/DL Calcium Level 7.9 MG/DL Alkaline Phosphatase 71 U/L Aspartate Amino Transf (AST/SGOT) 36 U/L Alanine Aminotransferase (ALT/SGPT) 14 U/L Total Bilirubin 6.4 MG/DL Sodium Level 142 MEQ/L Potassium Level 4.1 MEQ/L Chloride Level 109 MEQ/L Carbon Dioxide Level 27.7 MEQ/L Anion Gap 5 MEQ/L Estimat Glomerular Filtration Rate 31 ML/MIN Lactic Acid Level 1.6 mmol/L Ammonia 91 MCMOL/L Date/Time Source Procedure Growth Status 11/19/17 19:35 Blood Peripheral Aerobic Blood Culture - Preliminary NO GROWTH IN 1 DAY Resulted 11/19/17 19:35 Blood Peripheral Anaerobic Blood Culture - Preliminary NO GROWTH IN 1 DAY Resulted 11/19/17 15:15 Urine Catheterized Urine Urine Culture Pending Received Physical Examination HEENT: PERRL; normocephalic; atraumatic; no jaundice. CHEST: CTA CARDIAC: RRR ABDOMEN: Soft protuberant, nontender; no hepatosplenomegaly; bowel sounds are present in all four quadrants. EXTREMITIES: No clubbing, cyanosis, or edema. SKIN: Normal; no rash; no jaundice. [employer]: mildly lethargic but answer questions appropriately (Marla Haines) Assessment and Plan Plan 11/20/17 ASSESSMENT - cirrhosis, elevated bilirubin - likely 2/2 ETOH. had liver w/u 08/07 unremarkable other than HCV ab reactive. hx heavy drinking quit 2 weeks ago MELD 29, DF 44 could benefit from steroids if no contraindication, if not then pentoxifylline. ?hepatorenal urine na 5. Creatinine - elevated NH - 70 on admission and worsened, started on QID lactulose and seems more alert today than noted in reports on admission - n/v, CGE - has had n/v for 2 weeks, some coffee ground appearance. EGD by Dr Russell showed severe circumferential esophagitis and portal gastropathy. he is on carafate now - anemia - macrocytic - thrombocytopenia - coagulopathy - INR 2.0 on admission - cystitis, DIONTE per primary PLAN - regular solid diet and nectar thick liquids per ST - BID protonix 40mg - continue carafate - continue lactulose - consider steroids - consider pentoxifylline - check hcv quant and genotype - monitor labs, HH - transfuse as needed - continued etoh cessation - further recs to follow pt seen by myself and Dr Hummel and this note is written on his behalf (Marla Haines) Plan Dr. Ratliff is seeing the patient Physician Comments Patient seen and examined Agree with above Continue with current supportive care Monitor labs Patient with probably some underlying alcoholic hepatitis slowly resolving seeing that he has not had any alcohol in the past 2 weeks and the only thing manifesting at this point is the jaundice and encephalopathy coagulopathy and hypoalbuminemia and it looks like he may have hepatorenal syndrome or just acute kidney injury secondary to the nausea and vomiting the patient is noted to be anemic with recent history of coffee-ground emesis recent endoscopy had shown esophagitis and portal gastropathy Recommend PPI Recommend prednisolone 40 mg daily for a month Consider nephrology consult Cautious hydration Abstain from alcohol Low-salt diet (Loc Ratliff MD) Marla Haines Nov 20, 2017 13:16 Loc Ratliff MD Nov 20, 2017 15:18
--- NOTE | 2017-11-20 14:03 | PD.CONS ---
Consult Service Palliative Care . Consult Requested By Dr. Dooley . Primary Care Physician No Primary Care Physician . Reason for Consultation a. To assist with evaluation and management of symptoms including:Pain, dyspnea, confusion b. To assist medical decision maker(s) with: better understanding of current medical conditions; weighing benefits/burdens of medical treatment options; making medical treatment decisions. . HPI History of Present Illness Mr. Humphrey is a 67 year-old male with a known history of cirrhosis and heavy EtOH consumption who presented to [facility] ED on 11/19/2017 for evaluation of altered mental status. Apparently, the patient was hospitalized at [facility] for several days in October, with generalized weakness, altered mentation and falls. Course complicated by EtOH withdrawal. While hospitalized , patient was evaluated for pancytopenia and abnormal LFTs and received IV Venofer for his anemia. Patient had extensive workup while hospitalized; = EGD found severe circumferential esophagitis, portal hypertension gastropathy = Ultrasound of the abdomen (limited study) revealed a small heterogenous echogenic liver; questionable cirrhosis; small amount of ascites = Hemoglobin: 7.9; Creatinine: 1.01 Patient was discharged home with home health care, but when they arrived the was significantly was confused and EMS was called. BGL 81. Patient is a poor historian and was unable to provide medical history. Denied fall or pain. Patient did report that he had not urinated in 'quite some time'. Diagnostic data while in the ED: * Pulse: 88, respirations 16, BP 99/55, oxygen saturation 98% on room air, oral temperature 98.6 * WBC: 10.9, hemoglobin 8.7, hematocrit 24.6, platelets 66, neutrophils 60.9% * Sodium: 141, potassium 4.0, chloride 105, carbon dioxide 27.1, glucose 77, calcium 7.9, phosphorus 2.6, magnesium 1.8 * BUN: 32, creatinine 2.45, GFR 26 * Total bilirubin: 7.1, AST 38, ALT 15, alkaline phosphatase 91 * Ammonia: 21 * Total creatine kinase: 78 * Troponin <0.02 * BNP: 122 * Total protein: 7.3, albumin 1.8 * Toxicology-negative; EtOH level WNL * PT: 20.3, INR 2.0, APTT 34.1 * Chest x-ray showed right lower lung zone airspace disease and volume loss consistent with atelectasis with probable small effusion * CT head negative In the emergency department, the patient was found to have DIONTE as well as encephalopathy with an elevated ammonia level. He was given lactulose 1 and gentle IV hydration. His urinalysis was indicative of a urinary tract infection and he was started on Rocephin. Urine culture pending. Blood culture - no growth in 1 day. Nephrology and gastroenterology were consulted. Patient reporting vomiting 2 weeks with coffee-ground appearance; he denies any EtOH consumption in the past 2 weeks. He was supposed to be on Carafate BID and PPI but states he never filled the prescriptions. Patient is jaundice. A colonoscopy at [place] on 08/21/2017 showed diverticulosis and hemorrhoids; TD the same day found severe esophagitis, gastric sleeve, stricture stomach surgical changes. Liver workup was positive for HCV antibody but otherwise unremarkable. Meld score of 30 with 3-month mortality rate of 50%. Speech therapy evaluated the patient he was cleared for regular diet and nectar thickened consistency liquids. Hypoalbuminemia with albumin level of 1.8 Renal ultrasound on 11/19/2017 showing small kidneys bilaterally; no hydronephrosis; ascites and the right abdomen. Limited evaluation of the urinary bladder which is nondistended. Palliative Care was consulted to assist with symptom management and to discuss with the patient/family the benefits and burdens of his current illnesses and the options regarding future care. . Function/Cognitive Trajectory Patient has a known history of cirrhosis with heavy EtOH consumption. He has been hospitalized multiple times in the past few months. Patient presented with altered mental status. He reports progressively increased generalized weakness; he states he began having difficulty walking and talking 2-3 days prior to this hospitalization. . Review of Systems Constitutional: COMPLAINS OF: Fatigue, Pain, Generalized weakness Respiratory: COMPLAINS OF: Shortness of breath Cardiovascular: COMPLAINS OF: Dyspnea on Exertion, Lower Extremity Edema Gastrointestinal: COMPLAINS OF: Diarrhea (receiving lactulose) Genitourinary: COMPLAINS OF: Urinary frequency Integumentary: COMPLAINS OF: Abnormal pigmentation Psychiatric: COMPLAINS OF: Confusion (intermittent) Past Family Social History Coded Allergies: No Known Allergies (Unverified Allergy, Unknown, 11/19/17) Past Medical History DVT Atrial fibrillation History of morbid obesity Gangrenous cholecystitis Traumatic amputation of right thumb Cirrhosis ESLD. . Past Surgical History Cholecystectomy Right thumb amputation (traumatic) Gastric bypass . Reported Medications Sucralfate Spironolactone . Current Medications Medications (Trade) Dose Ordered Sig/Michael Route Start Time Stop Time Status Last Admin (NS Flush) 2 ml UNSCH PRN IV FLUSH 11/19/17 17:30 (NS Flush) 2 ml BID IV FLUSH 11/19/17 21:00 (Lasix) 40 mg BID PO 11/19/17 21:00 11/20/17 12:04 (Aldactone) 25 mg BIDPC PO 11/19/17 18:00 11/20/17 12:03 (Carafate) 1 gm QID PO 11/19/17 18:00 11/20/17 12:03 Sodium Chloride 1,000 ml @ 115 mls/hr [id number] IV 11/19/17 17:45 11/20/17 05:53 Ceftriaxone Sodium 1000 mg/ Sodium Chloride 100 ml @ 200 mls/hr Q24H IV 11/20/17 16:00 (Lactulose Liq) 30 ml QID PO 11/20/17 13:00 11/20/17 12:04 (Protonix) 40 mg Q12HR PO 11/20/17 21:00 UNV . Family History Father with unknown type of cancer; at the age of 96. Mother with unknown history. . Substance Use Tobacco: Patient denies Alcohol: Patient drinks 1-2 cups of vodka daily. He used to drink a fifth of vodka daily. Prescription med abuse: Patient denies Illicits: Patient denies . Psychosocial History Patient is originally from [place], [place]. He is a . He states he has no children. He lives with his girlfriend who he states worked as a nurse. Heavy, daily EtOH consumption . Spiritual/Cultural Factors Nonreligious . Living Will: Never completed Health Care Surrogate: Copy in medical record Durable Power of [place]: Never completed Date completed: 11/20/2017 . Health Care Surrogate(s): Patient is originally from [place], [place]. He is a . He states he has no children. He lives with his girlfriend who he states worked as a nurse. Heavy, daily EtOH consumption . . Documented care wishes: Healthcare surrogate designation form completed 11/20/2017. Briefly introduced the living will, but the patient has not completed any other written advanced directives at this time. . Today's verbally stated goals: Patient wants to feel better; he also wants to return home. . Family/friends goals: Pending conversation with family. . Ethical and Legal Issues No known ethical or legal issues impacting care at this time. . Physical Exam Vital Signs Date Time Temp Pulse Resp B/P (MAP) Pulse Ox O2 Delivery O2 Flow Rate FiO2 11/20/17 12:29 97.4 94 20 108/56 (73) 97 11/20/17 09:32 97 11/20/17 08:07 97.7 90 20 95/54 (68) 97 11/20/17 08:00 88 11/20/17 05:44 97.4 87 19 94/55 (68) 97 11/20/17 04:04 85 11/20/17 01:25 97.4 88 19 90/54 (66) 94 11/20/17 00:01 11/19/17 22:44 88 19 99/61 (74) 96 Room Air 11/19/17 15:15 80 16 101/55 (70) 98 Room Air 11/19/17 14:35 98.6 88 16 99/55 (70) 98 . Exam CONSTITUTIONAL/GENERAL: This is an elderly male patient who appears jaundice, in no apparent distress. TUBES/LINES/DRAINS: PIV, indwelling catheter SKIN: No jaundice, rashes, or lesions. Ecchymoses on upper extremities. No wounds seen anteriorly. Skin temperature appropriate. Not diaphoretic. HEAD: Atraumatic. Normocephalic. EYES: Pupils equal and round and reactive. Extraocular motions intact. Scleral icterus. No injection or drainage. Fundi not examined. ENT: Hearing grossly normal. Nose without bleeding or purulent drainage. NECK: Trachea midline. Supple, nontender. No palpable thyroid enlargement or nodularity. CARDIOVASCULAR: Regular rate and rhythm without murmurs, gallops, or rubs. No JVD. Peripheral pulses symmetric. RESPIRATORY/CHEST: Symmetric, unlabored respirations. Clear to auscultation. Breath sounds diminished bilaterally. GASTROINTESTINAL: Abdomen soft, slightly distended, tender palpation. No guarding. Small amount of ascites. GENITOURINARY: Without palpable bladder distension. Gasca catheter in place. MUSCULOSKELETAL: Extremities with 1+ edema. Tender to palpation along the lateral right hip. LYMPHATICS: No palpable cervical or supraclavicular adenopathy. NEUROLOGICAL: Oriented to person, place and situation. Forgetful. Follows simple commands. PSYCHIATRIC: No obvious anxiety/depression. No apparent hallucinations or other psychotic thought process. . Diagnostic Tests Laboratory Laboratory Tests Test 11/19/17 14:45 11/19/17 14:55 11/19/17 15:15 11/19/17 19:40 White Blood Count 10.9 TH/MM3 (4.0-11.0) Red Blood Count 2.15 MIL/MM3 (4.50-5.90) Hemoglobin 8.7 GM/DL (13.0-17.0) Hematocrit 24.6 % (39.0-51.0) Mean Corpuscular Volume 114.5 FL (80.0-100.0) Mean Corpuscular Hemoglobin 40.5 PG (27.0-34.0) Mean Corpuscular Hemoglobin Concent 35.3 % (32.0-36.0) Red Cell Distribution Width 16.5 % (11.6-17.2) Platelet Count 66 TH/MM3 (150-450) Mean Platelet Volume 8.2 FL (7.0-11.0) Neutrophils (%) (Auto) 60.9 % (16.0-70.0) Lymphocytes (%) (Auto) 25.4 % (9.0-44.0) Monocytes (%) (Auto) 8.0 % (0.0-8.0) Eosinophils (%) (Auto) 5.5 % (0.0-4.0) Basophils (%) (Auto) 0.2 % (0.0-2.0) Neutrophils # (Auto) 6.7 TH/MM3 (1.8-7.7) Lymphocytes # (Auto) 2.8 TH/MM3 (1.0-4.8) Monocytes # (Auto) 0.9 TH/MM3 (0-0.9) Eosinophils # (Auto) 0.6 TH/MM3 (0-0.4) Basophils # (Auto) 0.0 TH/MM3 (0-0.2) CBC Comment AUTO DIFF Differential Total Cells Counted 100 Neutrophils % (Manual) 66 % (16-70) Band Neutrophils % 10 % (0-6) Lymphocytes % 14 % (9-44) Monocytes % 3 % (0-8) Eosinophils % 7 % (0-4) Neutrophils # (Manual) 8.3 TH/MM3 (1.8-7.7) Differential Comment FINAL DIFF MANUAL Toxic Granulation 2+ (NORMAL) Toxic Vacuolation PRESENT (NONE SEEN) Dohle Bodies PRESENT (NONE SEEN) Platelet Estimate LOW (NORMAL) Platelet Morphology Comment NORMAL (NORMAL) Spherocytes 1+ (NORMAL) Acanthocytes OCC (NORMAL) Prothrombin Time 20.3 SEC (9.8-11.6) Prothromb Time International Ratio 2.0 RATIO Activated Partial Thromboplast Time 34.1 SEC (24.3-30.1) Blood Urea Nitrogen 32 MG/DL (7-18) Creatinine 2.45 MG/DL (0.60-1.30) Random Glucose 77 MG/DL (74-106) Total Protein 7.3 GM/DL (6.4-8.2) Albumin 1.8 GM/DL (3.4-5.0) Calcium Level 7.9 MG/DL (8.5-10.1) Alkaline Phosphatase 91 U/L (45-117) Aspartate Amino Transf (AST/SGOT) 38 U/L (15-37) Alanine Aminotransferase (ALT/SGPT) 15 U/L (12-78) Total Bilirubin 7.1 MG/DL (0.2-1.0) Sodium Level 141 MEQ/L (136-145) Potassium Level 4.0 MEQ/L (3.5-5.1) Chloride Level 105 MEQ/L (98-107) Carbon Dioxide Level 27.1 MEQ/L (21.0-32.0) Anion Gap 9 MEQ/L (5-15) Estimat Glomerular Filtration Rate 26 ML/MIN (>89) Phosphorus Level 2.6 MG/DL (2.5-4.9) Magnesium Level 1.8 MG/DL (1.5-2.5) Total Creatine Kinase 78 U/L (39-308) Troponin I LESS THAN 0.02 NG/ML B-Type Natriuretic Peptide 122 PG/ML (0-100) Thyroid Stimulating Hormone 3rd Gen 6.440 uIU/ML (0.358-3.740) Ethyl Alcohol Level LESS THAN 3 MG/DL (0-5) Ammonia 70 MCMOL/L (11-32) Urine Color DARK-BROWN (YELLW/STRAW) Urine Turbidity HAZY (CLEAR) Urine pH 5.0 (5.0-8.5) Urine Specific [place] 1.022 (1.002-1.035) Urine Protein 30 mg/dL (NEG-TRACE) Urine Glucose (UA) NEG mg/dL (NEG) Urine Ketones TRACE mg/dL (NEG) Urine Occult Blood SMALL (NEG) Urine Nitrite NEG (NEG) Urine Bilirubin SMALL (NEG) Urine Urobilinogen 4.0 MG/DL (LESS THAN Urine Leukocyte Esterase TRACE (NEG) Urine RBC 6 /hpf (0-3) Urine WBC 3 /hpf (0-5) Urine Squamous Epithelial Cells <1 /hpf (0-5) Urine Bacteria FEW /hpf (NONE) Urine Hyaline Casts 10 /lpf (RARE) Urine Mucus FEW /lpf (OCC) Microscopic Urinalysis Comment CATH-CULTURE IND Urine Random Sodium 5 MEQ/L Urine Opiates Screen NEG (NEG) Urine Barbiturates Screen NEG (NEG) Urine Amphetamines Screen NEG (NEG) Urine Benzodiazepines Screen NEG (NEG) Urine Cocaine Screen NEG (NEG) Urine Cannabinoids Screen NEG (NEG) Lactic Acid Level 2.4 mmol/L (0.4-2.0) Test 11/20/17 05:35 White Blood Count 7.9 TH/MM3 (4.0-11.0) Red Blood Count 2.05 MIL/MM3 (4.50-5.90) Hemoglobin 8.3 GM/DL (13.0-17.0) Hematocrit 23.4 % (39.0-51.0) Mean Corpuscular Volume 114.3 FL (80.0-100.0) Mean Corpuscular Hemoglobin 40.7 PG (27.0-34.0) Mean Corpuscular Hemoglobin Concent 35.6 % (32.0-36.0) Red Cell Distribution Width 16.6 % (11.6-17.2) Platelet Count 61 TH/MM3 (150-450) Mean Platelet Volume 8.2 FL (7.0-11.0) Neutrophils (%) (Auto) 56.0 % (16.0-70.0) Lymphocytes (%) (Auto) 28.1 % (9.0-44.0) Monocytes (%) (Auto) 7.8 % (0.0-8.0) Eosinophils (%) (Auto) 7.7 % (0.0-4.0) Basophils (%) (Auto) 0.4 % (0.0-2.0) Neutrophils # (Auto) 4.4 TH/MM3 (1.8-7.7) Lymphocytes # (Auto) 2.2 TH/MM3 (1.0-4.8) Monocytes # (Auto) 0.6 TH/MM3 (0-0.9) Eosinophils # (Auto) 0.6 TH/MM3 (0-0.4) Basophils # (Auto) 0.0 TH/MM3 (0-0.2) CBC Comment AUTO DIFF Differential Comment AUTO DIFF CONFIRMED Platelet Estimate LOW (NORMAL) Platelet Morphology Comment NORMAL (NORMAL) Blood Urea Nitrogen 35 MG/DL (7-18) Creatinine 2.15 MG/DL (0.60-1.30) Random Glucose 65 MG/DL (74-106) Total Protein 6.5 GM/DL (6.4-8.2) Albumin 1.6 GM/DL (3.4-5.0) Calcium Level 7.9 MG/DL (8.5-10.1) Alkaline Phosphatase 71 U/L (45-117) Aspartate Amino Transf (AST/SGOT) 36 U/L (15-37) Alanine Aminotransferase (ALT/SGPT) 14 U/L (12-78) Total Bilirubin 6.4 MG/DL (0.2-1.0) Sodium Level 142 MEQ/L (136-145) Potassium Level 4.1 MEQ/L (3.5-5.1) Chloride Level 109 MEQ/L (98-107) Carbon Dioxide Level 27.7 MEQ/L (21.0-32.0) Anion Gap 5 MEQ/L (5-15) Estimat Glomerular Filtration Rate 31 ML/MIN (>89) Lactic Acid Level 1.6 mmol/L (0.4-2.0) Ammonia 91 MCMOL/L (11-32) . Result Diagram: 11/20/1735 11/20/1735 Microbiology Microbiology Date/Time Source Procedure Growth Status 11/19/17 19:35 Blood Peripheral Aerobic Blood Culture - Preliminary NO GROWTH IN 1 DAY Resulted 11/19/17 19:35 Blood Peripheral Anaerobic Blood Culture - Preliminary NO GROWTH IN 1 DAY Resulted 11/19/17 19:35 Blood Peripheral Aerobic Blood Culture - Preliminary NO GROWTH IN 1 DAY Resulted 11/19/17 19:35 Blood Peripheral Anaerobic Blood Culture - Preliminary NO GROWTH IN 1 DAY Resulted 11/19/17 15:15 Urine Catheterized Urine Urine Culture Pending Received Imaging Last 72 hours Impressions Hip and Pelvis X-Ray 11/20/17 0000 Signed Impressions: Service Date/Time: Monday, November 20, 2017 13:57 - CONCLUSION: No acute fracture right hip. Tim Miranda MD Head CT 11/19/17 1431 Signed Impressions: Service Date/Time: Sunday, November 19, 2017 14:47 - CONCLUSION: Stable unremarkable exam for age. Donte Samuels MD Chest X-Ray 11/19/17 1431 Signed Impressions: Service Date/Time: Sunday, November 19, 2017 15:12 - CONCLUSION: 1. Right lower lung zone airspace disease and volume loss consistent with atelectasis with probable small effusion. Dustin Melo MD Renal Ultrasound 11/19/17 0000 Signed Impressions: Service Date/Time: Sunday, November 19, 2017 19:50 - CONCLUSION: 1. Small kidneys bilaterally. 2. No hydronephrosis or solid renal mass identified sonographically. 3. Some ascites within the right abdomen. 4. Limited evaluation of the urinary bladder which is nondistended. Tanvir Alarcon MD . Patient/Family Conference Present at Family Conference: Met with patient. . Family Conference Location: Bedside Issues Discussed: * Palliative care role, purpose, approach * Additional medical, psychosocial, and spiritual history * Patients general health, functional status, and cognitive changes in the months leading up to the current hospitalization * Patient/family understanding of the current medical problems * Patient/family understanding of prognosis * Patients goals of care as best understood from advance directives and/or conversations and/or values * Current medical treatment options and benefits/burdens of those options * Likely scenarios comparing ongoing aggressive care with a transition to comfort measures only * Questions answered to the best of my ability * Palliative care contact information provided . Assessment and Plan Disease Oriented Problem List: (1) Cystitis (2) Hepatic encephalopathy (3) Cirrhosis (4) Cystitis (5) UTI (urinary tract infection) Symptom Scale: (1) Dyspnea (2) Confusion (3) Pain Pertinent Non-Medical Issues Psychosocial:Patient is originally from [place], [place]. He is a . He states he has no children. He lives with his girlfriend who he states worked as a nurse. Heavy, daily EtOH consumption Spiritual: None alevism Legal: Patient completed healthcare surrogate designation form on 11/20/2017. His girlfriend, Mary Vincent, is designated as the healthcare surrogate decision maker. Ethical issues impacting care: No ethical issues impacting care at this time. Important Contacts Mary Vincent, significant other: [phone] . Prognosis Patient is a 67-year-old male with a known history of cirrhosis and heavy EtOH consumption. Meld score: 30 with a 90 day mortality rate of 62%. Poor prognosis. Patient would be appropriate for hospice if/when his goals become comfort oriented. . Code Status: Full Code Plan * FULL CODE * Decision-making: Patient completed healthcare surrogate designation form on . Mary Vincent, patient's girlfriend, is designated as the healthcare surrogate decision maker. * Aggressive goals pending further conversation with patient and family. * Symptom management-pain: Patient complaining of right hip pain, no known history of recent falls. On exam, the right hip is tender to palpation. Pain is noted with internal rotation of the right hip. X-ray of the right hip and pelvis showed no acute fracture. Patient is at risk for further pain due to ascites, generalized weakness, bedbound status and invasive lines. * Symptom management-dyspnea: Patient having dyspnea with conversation. Oxygen saturation saturations in the high 90s on room air. CXR showing right lower lung zone airspace disease and volume loss consistent with atelectasis and probable small effusion. Some ascites within the right abdomen was noted during renal ultrasound. Patient will remain high risk for pneumonia, ongoing respiratory issues secondary to his underlying disease processes and debilitation, bedbound status. Continue to monitor. * Symptom management-confusion: Cephalopathy due to acute decompensation of cirrhosis vs. infection vs. hepatorenal syndrome. CT head was negative. Urine drug screen and toxicology screen negative; alcohol level negative. Ammonia level was 70 on 11/19/2017 increasing to 91 today 11/20/2017. Patient receiving lactulose 30ml QID. * Meld score of 30 with 3-month mortality rate >50%. * Discussed patient with bedside nurseKenny. * Tentative family meeting tomorrow 11/21/2017-time unknown. * Palliative care contact information provided to the patient and his girlfriend. * Palliative care will continue to follow this patient throughout his hospitalization to establish trust, assist with symptom management and clarification of medical treatment goals. Thank you for the opportunity to participate in the care of Mr. Humphrey. Denise Houser Nov 20, 2017 14:03
--- NOTE | 2017-11-20 14:30 | RADRPT ---
EXAM DATE/TIME: 11/20/2017 13:57 [facility] COMPARISON: No previous studies available for comparison. INDICATIONS : Right hip pain post fall a couple days ago. MEDICAL HISTORY : Atrial fibrillation. Hiatal hernia. Arthritis. SURGICAL HISTORY : Cholecystectomy. Right thumb amputation. Stomach surgery. ENCOUNTER: Subsequent ACUITY: 2 days PAIN SCORE: 10/10 LOCATION: Right hip/pelvis FINDINGS: Examination of the right hip was performed with AP Pelvis. No fracture seen. Right hip appears intact . Mild degenerative changes lower lumbar spine in each hip. The acetabulum is grossly intact. CONCLUSION: No acute fracture right hip. Tim Miranda MD on November 20, 2017 at 14:26 Board Certified Radiologist. This report was verified electronically.
--- NOTE | 2017-11-20 17:05 | PD.CONS ---
HPI Service Nephrology Consult Requested By Dr. Soto Reason for Consult DIONTE Primary Care Physician No Primary Care Physician History of Present Illness This is a 67-year-old male with a known history of cirrhosis and heavy alcohol use who was brought to the emergency department by [facility] due to altered mental status after being found confused at home by home health care. He was recently hospitalized at [facility] from 11/12/17 through 11/16/17 for generalized weakness, mental status changes and falls. He found to have elevated creatinine at 2.15 and GFR 31ml/min. Upon discharge from [facility] had creatinine of 1.01. Patient has significant lower extremity edema and albumin level of 1.6. (Rosio Reynoso) Review of Systems Constitutional: COMPLAINS OF: Fatigue, Dizziness Respiratory: COMPLAINS OF: Shortness of breath Cardiovascular: DENIES: Chest pain Gastrointestinal: DENIES: Abdominal pain, Diarrhea, Nausea, Vomiting Genitourinary: DENIES: Hematuria Psychiatric: COMPLAINS OF: Confusion (Rosio Reynoso) Past Family Social History Allergies: Coded Allergies: No Known Allergies (Unverified Allergy, Unknown, 11/19/17) Past Medical History DVT Atrial fibrillation History of morbid obesity Gangrenous cholecystitis Traumatic amputation of right thumb Cirrhosis ESLD. Past Surgical History Cholecystectomy Right thumb amputation (traumatic) Gastric bypass . Active Ordered Medications Current Medications Medications (Trade) Dose Ordered Sig/Michael Route Start Time Stop Time Status Last Admin (NS Flush) 2 ml UNSCH PRN IV FLUSH 11/19/17 17:30 (NS Flush) 2 ml BID IV FLUSH 11/19/17 21:00 (Lasix) 40 mg BID PO 11/19/17 21:00 11/20/17 12:04 (Aldactone) 25 mg BIDPC PO 11/19/17 18:00 11/20/17 12:03 (Carafate) 1 gm QID PO 11/19/17 18:00 11/20/17 12:03 Sodium Chloride 1,000 ml @ 115 mls/hr [id number] IV 11/19/17 17:45 11/20/17 05:53 Ceftriaxone Sodium 1000 mg/ Sodium Chloride 100 ml @ 200 mls/hr Q24H IV 11/20/17 16:00 (Lactulose Liq) 30 ml QID PO 11/20/17 13:00 11/20/17 12:04 (Protonix) 40 mg Q12HR PO 11/20/17 21:00 (Orapred Odt) 40 mg DAILY PO 11/20/17 17:00 Albumin Human 100 ml @ 60 mls/hr Q12H IV 11/20/17 16:00 Social History HX ETOH abuse; quit 2-3 weeks ago Lives with girlfriend (Rosio ReynosoMae MEHTA) Physical Exam Vital Signs Vital Signs Date Time Temp Pulse Resp B/P (MAP) Pulse Ox O2 Delivery O2 Flow Rate FiO2 11/20/17 15:35 97.6 86 20 104/56 (72) 97 11/20/17 12:29 97.4 94 20 108/56 (73) 97 11/20/17 09:32 97 11/20/17 08:07 97.7 90 20 95/54 (68) 97 11/20/17 08:00 88 11/20/17 05:44 97.4 87 19 94/55 (68) 97 11/20/17 04:04 85 11/20/17 01:25 97.4 88 19 90/54 (66) 94 11/20/17 00:01 11/19/17 22:44 88 19 99/61 (74) 96 Room Air Physical Exam GENERAL: This is a well-nourished, well-developed male patient SKIN: No rashes, ecchymoses or lesions. Cool and dry. Jaundice. HEAD: Atraumatic. Normocephalic. EYES: Pupils equal round and reactive. Extraocular motions intact. Scleral icterus. No injection or drainage. NECK: Trachea midline. No JVD or lymphadenopathy. Supple, nontender, no meningeal signs. CARDIOVASCULAR: Regular rate and rhythm without murmurs, gallops, or rubs. RESPIRATORY: Clear to auscultation. Breath sounds decreased in right lower lobe with crackles. No wheezes. GASTROINTESTINAL: Abdomen with multiple surgical scars present including a lateral incisional scar in the right upper quadrant, a horizontal midabdominal scar, an umbilical scar, and 2 small incisional scars in the right middle abdomen. No palpable masses. No guarding. MUSCULOSKELETAL: Extremities with 1+ pitting edema. Patient able to lift both legs against gravity. NEUROLOGICAL: Awake but drowsy. Oriented to person but not to place or time. Follows commands. Motor and sensory grossly within normal limits. Unable to complete a thought. Fragmented speech that is unrelated to the questions asked. Impairment in attention, reaction time, and working memory. Laboratory Laboratory Tests Test 11/19/17 19:40 11/20/17 05:35 Lactic Acid Level 2.4 1.6 White Blood Count 7.9 Red Blood Count 2.05 Hemoglobin 8.3 Hematocrit 23.4 Mean Corpuscular Volume 114.3 Mean Corpuscular Hemoglobin 40.7 Mean Corpuscular Hemoglobin Concent 35.6 Red Cell Distribution Width 16.6 Platelet Count 61 Mean Platelet Volume 8.2 Neutrophils (%) (Auto) 56.0 Lymphocytes (%) (Auto) 28.1 Monocytes (%) (Auto) 7.8 Eosinophils (%) (Auto) 7.7 Basophils (%) (Auto) 0.4 Neutrophils # (Auto) 4.4 Lymphocytes # (Auto) 2.2 Monocytes # (Auto) 0.6 Eosinophils # (Auto) 0.6 Basophils # (Auto) 0.0 CBC Comment AUTO DIFF Differential Comment AUTO DIFF CONFIRMED Platelet Estimate LOW Platelet Morphology Comment NORMAL Blood Urea Nitrogen 35 Creatinine 2.15 Random Glucose 65 Total Protein 6.5 Albumin 1.6 Calcium Level 7.9 Alkaline Phosphatase 71 Aspartate Amino Transf (AST/SGOT) 36 Alanine Aminotransferase (ALT/SGPT) 14 Total Bilirubin 6.4 Sodium Level 142 Potassium Level 4.1 Chloride Level 109 Carbon Dioxide Level 27.7 Anion Gap 5 Estimat Glomerular Filtration Rate 31 Ammonia 91 Date/Time Source Procedure Growth Status 11/19/17 19:35 Blood Peripheral Aerobic Blood Culture - Preliminary NO GROWTH IN 1 DAY Resulted 11/19/17 19:35 Blood Peripheral Anaerobic Blood Culture - Preliminary NO GROWTH IN 1 DAY Resulted 11/19/17 15:15 Urine Catheterized Urine Urine Culture - Preliminary NO GROWTH IN 24 HOURS. Resulted (Rosio Reynoso) Result Diagram: 11/20/17 0535 11/20/17 0535 Imaging Last Impressions Hip and Pelvis X-Ray 11/20/17 0000 Signed Impressions: Service Date/Time: Monday, November 20, 2017 13:57 - CONCLUSION: No acute fracture right hip. Tim Miranda MD Head CT 11/19/17 1431 Signed Impressions: Service Date/Time: Sunday, November 19, 2017 14:47 - CONCLUSION: Stable unremarkable exam for age. Donte Samuels MD Chest X-Ray 11/19/17 1431 Signed Impressions: Service Date/Time: Sunday, November 19, 2017 15:12 - CONCLUSION: 1. Right lower lung zone airspace disease and volume loss consistent with atelectasis with probable small effusion. Dustin Melo MD Renal Ultrasound 11/19/17 0000 Signed Impressions: Service Date/Time: Sunday, November 19, 2017 19:50 - CONCLUSION: 1. Small kidneys bilaterally. 2. No hydronephrosis or solid renal mass identified sonographically. 3. Some ascites within the right abdomen. 4. Limited evaluation of the urinary bladder which is nondistended. Tanvir Alarcon MD (Rosio Reynoso) Assessment and Plan Problem List: (1) DIONTE (acute kidney injury) ICD Codes: N17.9 - Acute kidney failure, unspecified Status: Acute Plan: DIONTE may be from dehydration, ATN, UTI Creatinine at 2.15 today and GFR of 31 ml/min Gasca in place dark-colored urine Renal ultrasound showing small kidneys bilaterally with no hydronephrosis or solid renal mass identified 2+ lower extremity edema with low albumin level of 1.6 Urine with 1+ proteinuria Plan Albumin every 12 hours and continue Lasix Gentle hydration IVF decreased Avoid nephrotoxins Monitor labs and I+O (2) UTI (urinary tract infection) ICD Codes: N39.0 - Urinary tract infection, site not specified Status: Acute Plan: Continue rocephin Culture pending (3) Cirrhosis ICD Codes: K74.60 - Unspecified cirrhosis of liver (4) Confusion ICD Codes: R41.0 - Disorientation, unspecified (Rosio Reynoso) Problem List: (1) DIONTE (acute kidney injury) ICD Codes: N17.9 - Acute kidney failure, unspecified Status: Acute Plan: DIONTE may be from dehydration, ATN, UTI Creatinine at 2.15 today and GFR of 31 ml/min Gasca in place dark-colored urine Renal ultrasound showing small kidneys bilaterally with no hydronephrosis or solid renal mass identified 2+ lower extremity edema with low albumin level of 1.6 Urine with 1+ proteinuria Plan Albumin every 12 hours and continue Lasix Gentle hydration IVF decreased Avoid nephrotoxins Monitor labs and I+O. Hold diuretics. Stabilize the BP and continue IVF and IV Albumin. (2) UTI (urinary tract infection) ICD Codes: N39.0 - Urinary tract infection, site not specified Status: Acute Plan: Continue rocephin Culture pending (3) Cirrhosis ICD Codes: K74.60 - Unspecified cirrhosis of liver (4) Confusion ICD Codes: R41.0 - Disorientation, unspecified (Shawn Avina MD) Problem Qualifiers (1) UTI (urinary tract infection): Qualified Codes: N30.00 - Acute cystitis without hematuria (2) Cirrhosis: Qualified Codes: K70.31 - Alcoholic cirrhosis of liver with ascites Rosio Reynoso Nov 20, 2017 17:05 Shawn Avina MD Nov 20, 2017 17:42
[2017-11-20] MEDS: ALBUMIN 25% INJ 100 ML IV SCH (17:41)
[2017-11-20] MEDS: cefTRIAXone INJ 1,000 MG in SODIUM CHLORIDE 0.9% INJ 100 ML IV SCH (17:51)
[2017-11-20] MEDS: prednisoLONE 10 MG ODT TAB PO SCH (18:26)
[2017-11-20] MEDS: PANTOPRAZOLE SOD 40 MG DELAYED RELEASE TAB PO SCH (20:35)
[2017-11-21] VITALS (10 sets, daily range): BP systolic 103–126; BP diastolic 58–74; PULSE 82–97; RESP 18; TEMP 97.4–98.5; O2SAT 93–97
--- NOTE | 2017-11-21 01:12 | EKG ---
Date Performed: 11/19/2017 Time Performed: 14:32:58 PTAGE: 67 years EKG: Sinus rhythm NON-SPECIFIC ST/T WAVE CHANGES Since the prior tracing, there has been no significant change DOCTOR: Jamie Marcus Interpretating Date/Time 11/21/2017 01:11:44
[2017-11-21] MEDS: SODIUM CHLOR 0.9% 1000 ML INJ 1,000 ML IV SCH (02:35)
[2017-11-21] MEDS: ALBUMIN 25% INJ 100 ML IV SCH ×2 (04:21→16:02)
[2017-11-21 06:22] LABS: AUTOMATED NEUTROPHIL # 3.2 TH/MM3 (1.8-7.7); BASOPHIL % 0.1 % (0.0-2.0); EOSINOPHIL % 0.1 % (0.0-4.0); LYMPH % 22.1 % (9.0-44.0); MEAN CELL VOLUME 114.3 FL (80.0-100.0); MEAN CORPUSCULAR HEMOGLOBIN 40.1 PG (27.0-34.0); MEAN CORPUSCULAR HGB CONC 35.1 % (32.0-36.0); MEAN PLATELET VOLUME 7.7 FL (7.0-11.0); MONO % 7.5 % (0.0-8.0); MONOCYTE # 0.3 TH/MM3 (0-0.9); NEUT % 70.2 % (16.0-70.0); PLATELET COUNT 52 TH/MM3 (150-450); RED BLOOD COUNT 1.79 MIL/MM3 (4.50-5.90); RED CELL DISTRIBUTION WIDTH 16.8 % (11.6-17.2); WHITE BLOOD COUNT 4.5 TH/MM3 (4.0-11.0)
[2017-11-21 06:23] LABS: INTERNATIONAL NORMALIZED RATIO 1.7 RATIO; PROTHROMBIN TIME - PATIENT 17.6 SEC (9.8-11.6)
[2017-11-21 06:42] LABS: ALBUMIN 2.1 GM/DL (3.4-5.0); ALT (GPT) 15 U/L (12-78); AST (GOT) 33 U/L (15-37); BICARBONATE 25.2 MEQ/L (21.0-32.0); BLOOD UREA NITROGEN 38 MG/DL (7-18); CALCIUM 7.9 MG/DL (8.5-10.1); CHLORIDE 109 MEQ/L (98-107); CREATININE 1.79 MG/DL (0.60-1.30); GLOMERULAR FILTRATION RATE 38 ML/MIN (>89); GLUCOSE,RANDOM 150 MG/DL (74-106); SODIUM (NA) 142 MEQ/L (136-145)
[2017-11-21 06:44] LABS: ALKALINE PHOSPHATASE 65 U/L (45-117); TOTAL BILIRUBIN ADULT 5.2 MG/DL (0.2-1.0); TOTAL PROTEIN 6.9 GM/DL (6.4-8.2)
[2017-11-21 06:47] LABS: HEMATOCRIT 20.4 % (39.0-51.0); HEMOGLOBIN 7.2 GM/DL (13.0-17.0)
[2017-11-21 08:34] LABS: OVALOCYTES 1+ (NORMAL); TOXIC GRANULATION 1+ (NORMAL)
[2017-11-21] MEDS: SPIRONOLACTONE 25 MG TAB PO SCH ×2 (08:41→17:05)
[2017-11-21] MEDS: PANTOPRAZOLE SOD 40 MG DELAYED RELEASE TAB PO SCH ×2 (08:41→21:33)
[2017-11-21] MEDS: LACTULOSE SYRUP 20 GM/30 ML CUP PO SCH ×4 (08:41→21:34)
[2017-11-21] MEDS: SUCRALFATE 1 GM TAB PO SCH ×4 (08:41→21:33)
[2017-11-21] MEDS: SODIUM CHLORIDE 0.9% FLUSH 10 ML FLUSH IV FLUSH SCH ×2 (08:42→21:34)
[2017-11-21] MEDS: prednisoLONE 10 MG ODT TAB PO SCH (08:42)
--- NOTE | 2017-11-21 11:18 | HHI.FPPN ---
Subjective Remarks Patient seen and examined this morning by medical team. No acute events overnight per report. Vital signs remain within normal limits with mild hypotension. Patient's mental status greatly improved today and is interactive throughout the interview. Patient has multiple complaints this morning, all of which are not on physical. He states that he is 99% better and would liked to be discharged. We discussed the severity of his cirrhosis and liver failure. Patient states that he has "no intention of dying anytime soon." Palliative care has met with patient and his POA, his girlfriend, for which a family meeting is planned for an unknown time today. He denies any new fevers, chills, shortness of breath, chest pain, NVD, abdominal pain, or calf tenderness. (Long Helms MD R2) Objective Vitals Vital Signs Date Time Temp Pulse Resp B/P (MAP) Pulse Ox O2 Delivery O2 Flow Rate FiO2 11/21/17 10:26 86 11/21/17 09:09 95 11/21/17 07:48 97.4 93 18 119/72 (88) 95 11/21/17 05:01 97.4 87 18 103/59 (74) 94 11/21/17 03:01 82 11/21/17 01:08 98.5 87 18 104/60 (75) 94 11/20/17 20:35 97.8 97 18 104/59 (74) 97 11/20/17 20:14 86 11/20/17 16:00 90 11/20/17 15:35 97.6 86 20 104/56 (72) 97 11/20/17 12:29 97.4 94 20 108/56 (73) 97 I/O 11/20/17 11/20/17 11/20/17 11/21/17 11/21/17 11/21/17 07:00 15:00 23:00 07:00 15:00 23:00 Intake Total 1000 ml 480 ml 1100 ml Output Total 450 ml 500 ml Balance 550 ml -20 ml 1100 ml Intake Oral 480 ml IV Total 1000 ml 1100 ml Output Urine Total 450 ml 500 ml (Long Helms MD R2) Result Diagram: 11/21/17 0555 11/21/17 0555 Objective Remarks GENERAL: Elderly-appearing male lying in bed eating breakfast in no acute distress. SKIN: Patient remains jaundiced, but improved from previous exams. Upper extremity excoriations. HEENT: Atraumatic, normocephalic with EOMI. MMM. No rhinorrhea. No visible LAD or JVD. CARDIOVASCULAR: Regular rate and rhythm without murmurs, gallops, or rubs. RESPIRATORY: Decreased breath sounds of the lower right lobe, otherwise clear to auscultation. No CRW. No increased work of breathing. GASTROINTESTINAL: Abdomen with multiple surgical scars present including a lateral incisional scar in the right upper quadrant, a horizontal midabdominal scar, an umbilical scar, and 2 small incisional scars in the right middle abdomen on inspection. Abdomen soft, mildly distended with positive bowel sounds. No tenderness to palpation. No guarding or rebound tenderness. No masses appreciated. MUSCULOSKELETAL: Extremities with 1+ pitting edema. Patient able to lift both legs against gravity. She remains tender to palpation along the lateral right hip. Pain continues with internal rotation of the right hip. No visible shortening or external rotation of the right hip. NEUROLOGICAL: Alert. Oriented to person and place, not time. Follows commands. Motor and sensory grossly within normal limits. Patient speech, attention, and memory vastly improved from prior exams. (Long Helms MD R2) A/P Assessment and Plan Patient is a 67-year-old male with a past medical history significant for cirrhosis admitted for altered mental status. Discharge Planning Pending clinical improvement (Long Helms MD R2) Attending Attestation Pt. examined and case discussed with resident physicians. I have read the above note and agree with the assessment and plan as discussed with me. I was involved in all medical decision making for this patient. Jonatan Gonzalez MD (Jonatan Gonzalez MD) Problem List: (1) Altered mental status ICD Codes: R41.82 - Altered mental status, unspecified Status: Acute Plan: Encephalopathic due to acute decompensation of cirrhosis versus infection versus hepatorenal syndrome Nephrology consulted for further evaluation -Albumin twice a day -Avoid nephrotoxins GI consulted for further evaluation -Continue prednisolone -Protonix twice a day -Hepatitis C quant and genotype: Pending -Transfuse as indicated, H/H 7.2/20.4, repeat pending Palliative medicine consult to clarify goals of treatment -Patient remained full code -Mary MCNAIR (patient's girlfriend) -Tentative family meeting 11/21/[address] negative Alcohol level wnl Ammonia improved to 43 No hypokalemia or hyponatremia Urinary tract infection treated as below and urine culture pending UDS and tox screen negative, alcohol level negative TSH mildly elevated at 6.4 Lactulose 30 mg 4 times a day ordered - Cleared by speech therapy for nectar thickened liquids - Supplemental O2 to maintain O2 sat >92% - Avoid hepatotoxic medications - Ritu-colace to prevent constipation - Blood cultures: One vial with gram-positive cocci (likely contaminate) defer treatment until identification as patient is not. Her acutely infected - Monitor CMP (2) Cirrhosis ICD Codes: K74.60 - Unspecified cirrhosis of liver Plan: GI consulted for further evaluation and management - MELD score of 30 on arrival with a 50% mortality rate Lactulose 30 mg 4 times a day ordered -Ammonia improved to 43 Bilirubin elevated at 7.1, AST elevated at 38, ALT within normal limits, alkaline phosphatase within normal limits INR elevated at 2.0 with no anticoagulation Albumin improved to 2.1 Continue IV fluid hydration with NS @ 115ml/hr - Lactulose 30ml PO 4 times a day - Continue home dose of spironolactone 25mg PO BID -Lasix discontinued her nephrology (3) Anemia ICD Codes: D64.9 - Anemia, unspecified Status: Acute Plan: Lab work from [facility] shows a discharge hemoglobin of 7.9 - Hemoglobin 7.2, repeat pending - Hemoccult ordered EGD performed at [facility] reviewed showing esophagitis but no active bleeding Continue to monitor with lab work and transfuse as needed (4) Cystitis ICD Codes: N30.90 - Cystitis, unspecified without hematuria Status: Acute Plan: UA significant for trace leukocyte esterase, few bacteria, few mucus, small occult blood - Follow urine culture: NTD - Follow blood cultures: Gram-positive cocci in 1/4 vials, identification to follow - Rocephin 1g IV Q24H (started 11/19) (5) DIONTE (acute kidney injury) ICD Codes: N17.9 - Acute kidney failure, unspecified Status: Acute Plan: May be secondary to hepatorenal syndrome versus dehydration versus ATN versus obstruction. Creatinine elevated at 2.45 on arrival, 1.79 today after a gentle IV hydration Gasca to be removed today with a voiding trial Renal ultrasound showing small kidneys bilaterally with no hydronephrosis or solid renal mass identified - Hydration with normal saline at maintenance rate of 115ml/hr - Treatment for acute cystitis as above - Continue to monitor creatinine Nephrology consulted for possible treatment for hepatorenal syndrome (6) Nutrition, metabolism, and development symptoms ICD Codes: R63.8 - Other symptoms and signs concerning food and fluid intake Status: Acute Plan: Fluids: NS @ 115ml/hr Electrolytes: wnl, continue to monitor and replete PRN Nutrition: Speech has performed for study and cleared for nectar thickened liquids DVT PPx: hold chemical anticoagulation given elevated INR of 2.0 in the setting of cirrhosis. SCD's. (Long Helms MD R2) Problem Qualifiers (1) Altered mental status: Qualified Codes: R41.0 - Disorientation, unspecified (2) Cirrhosis: Qualified Codes: K70.31 - Alcoholic cirrhosis of liver with ascites (3) Anemia: Qualified Codes: D64.89 - Other specified anemias Long Helms MD R2 Nov 21, 2017 11:18 Jonatan Gonzalez MD Nov 21, 2017 21:03
--- NOTE | 2017-11-21 12:49 | HHI.HCPN ---
Reason for visit a. To assist with evaluation and management of symptoms including: Pain, dyspnea, confusion b. To assist medical decision maker(s) with: better understanding of current medical conditions; weighing benefits/burdens of medical treatment options; making medical treatment decisions. . Subjective/Interval History Follow-up visit for symptom management and clarification of medical treatment goals. Patient seen and assessed at 12:30 with girlfriend (Mary) at bedside. Patient is much more alert today than yesterday. He verbalizes frustration stating that he wants to go home, and he is only getting weaker while he lies in the bed at the hospital. We had a lengthy discussion regarding the significance of his cirrhosis/liver failure. The patient states he has "no intention of dying anytime soon. My father at the age of 96 last May, and I plan on doing the same thing." It is difficult to redirect the patient back to discussions about his prognosis because he only wants to discuss going home and how his girlfriend can become a patent caregiver. Vital signs are relatively stable; patient having ongoing mild hypotension. Blood culture: + staph sp coagulase negative 11/21/2017 blood work: = WBC: 4.5, hemoglobin 7.2, hematocrit 20.4, platelets 52, neutrophils 70.2% = Sodium: 142, potassium 4.1, chloride 109, carbon dioxide 25.2, glucose 150, calcium 7.9 = Total bilirubin: 5.2, AST 33, ALT 15, alkaline phosphatase 65 = Total protein: 69, albumin 2.1 = PT: 17.6, INR 1.7 Hemoglobin down to 7.2 this a.m.; hemoglobin of 8.6 on recheck. No obvious signs of bleeding; Hemoccult negative stool. Ammonia trending downward, current ammonia level of 43. Likely EtOH hepatitis resolving. Remains Protonix , Carafate and Lactulose. Will continue prednisolone for one month. GI has signed off. Creatinine decreased from 2.5 to 1.79 today. GFR: 38. Nephrology continues to follow. . Family/friend interactions Spoke with patient and his girlfriend at bedside. They express ongoing aggressive goals stating no one was going to anytime soon. They were unwilling to discuss patient's significant cirrhosis/liver disease at the time of my visit saying "it doesn't matter what you or anyone else thinks." Palliative care will continue to follow this patient to provide ongoing support/ education and to facilitate further conversations regarding patient's medical conditions, overall prognosis and his medical treatment goals. . Advance Directives Living Will: Never completed Health Care Surrogate: Copy in medical record Durable Power of Cash Applications Specialist: Never completed Advance Directive Specifics Date completed: 11/20/2017 . Health Care Surrogate(s): Patient is originally from [place], [place]. He is a . He states he has no children. He lives with his girlfriend who he states worked as a nurse. Heavy, daily EtOH consumption . . Documented care wishes: Healthcare surrogate designation form completed 11/20/2017. Briefly introduced the living will, but the patient has not completed any other written advanced directives at this time. . Objective Vital Signs Date Time Temp Pulse Resp B/P (MAP) Pulse Ox O2 Delivery O2 Flow Rate FiO2 11/21/17 11:51 98.0 84 18 126/74 (91) 93 11/21/17 10:26 86 11/21/17 09:09 95 11/21/17 07:48 97.4 93 18 119/72 (88) 95 11/21/17 05:01 97.4 87 18 103/59 (74) 94 11/21/17 03:01 82 11/21/17 01:08 98.5 87 18 104/60 (75) 94 11/20/17 20:35 97.8 97 18 104/59 (74) 97 11/20/17 20:14 86 11/20/17 16:00 90 11/20/17 15:35 97.6 86 20 104/56 (72) 97 Intake & Output 11/21/17 11/21/17 07:00 19:00 Intake Total 1100 ml Output Total 500 ml Balance 600 ml IV Total 1100 ml Output Urine Total 500 ml . Physical Exam CONSTITUTIONAL/GENERAL: This is an elderly male patient who appears jaundice, in no apparent distress. TUBES/LINES/DRAINS: PIV, indwelling catheter SKIN: Decreasing jaundice. Upper extremities excoriated with swelling. Skin temperature appropriate. Not diaphoretic. HEAD: Atraumatic. Normocephalic. EYES: Pupils equal and round and reactive. Extraocular motions intact. Scleral icterus. No injection or drainage. Fundi not examined. ENT: Hearing grossly normal. Nose without bleeding or purulent drainage. Poor dentition NECK: Trachea midline. CARDIOVASCULAR: Regular rate and rhythm without murmurs, gallops, or rubs. No JVD. Peripheral pulses symmetric. RESPIRATORY/CHEST: Symmetric, unlabored respirations. Clear to auscultation. Breath sounds diminished bilaterally. GASTROINTESTINAL: Abdomen soft, slightly distended, nontender. No guarding. Active bowel sounds 4 quadrants GENITOURINARY: Without palpable bladder distension. MUSCULOSKELETAL: Extremities with 2+ edema. Moving all extremities 4 LYMPHATICS: No palpable cervical or supraclavicular adenopathy. NEUROLOGICAL: More alert today. Oriented to person, place and situation. Engages in conversation, able to follow commands. PSYCHIATRIC: No obvious anxiety/depression. No apparent hallucinations or other psychotic thought process. . Diagnostic Tests Laboratory Laboratory Tests Test 11/19/17 14:45 11/19/17 14:55 11/19/17 15:15 11/19/17 19:40 White Blood Count 10.9 TH/MM3 (4.0-11.0) Red Blood Count 2.15 MIL/MM3 (4.50-5.90) Hemoglobin 8.7 GM/DL (13.0-17.0) Hematocrit 24.6 % (39.0-51.0) Mean Corpuscular Volume 114.5 FL (80.0-100.0) Mean Corpuscular Hemoglobin 40.5 PG (27.0-34.0) Mean Corpuscular Hemoglobin Concent 35.3 % (32.0-36.0) Red Cell Distribution Width 16.5 % (11.6-17.2) Platelet Count 66 TH/MM3 (150-450) Mean Platelet Volume 8.2 FL (7.0-11.0) Neutrophils (%) (Auto) 60.9 % (16.0-70.0) Lymphocytes (%) (Auto) 25.4 % (9.0-44.0) Monocytes (%) (Auto) 8.0 % (0.0-8.0) Eosinophils (%) (Auto) 5.5 % (0.0-4.0) Basophils (%) (Auto) 0.2 % (0.0-2.0) Neutrophils # (Auto) 6.7 TH/MM3 (1.8-7.7) Lymphocytes # (Auto) 2.8 TH/MM3 (1.0-4.8) Monocytes # (Auto) 0.9 TH/MM3 (0-0.9) Eosinophils # (Auto) 0.6 TH/MM3 (0-0.4) Basophils # (Auto) 0.0 TH/MM3 (0-0.2) CBC Comment AUTO DIFF Differential Total Cells Counted 100 Neutrophils % (Manual) 66 % (16-70) Band Neutrophils % 10 % (0-6) Lymphocytes % 14 % (9-44) Monocytes % 3 % (0-8) Eosinophils % 7 % (0-4) Neutrophils # (Manual) 8.3 TH/MM3 (1.8-7.7) Differential Comment FINAL DIFF MANUAL Toxic Granulation 2+ (NORMAL) Toxic Vacuolation PRESENT (NONE SEEN) Dohle Bodies PRESENT (NONE SEEN) Platelet Estimate LOW (NORMAL) Platelet Morphology Comment NORMAL (NORMAL) Spherocytes 1+ (NORMAL) Acanthocytes OCC (NORMAL) Prothrombin Time 20.3 SEC (9.8-11.6) Prothromb Time International Ratio 2.0 RATIO Activated Partial Thromboplast Time 34.1 SEC (24.3-30.1) Blood Urea Nitrogen 32 MG/DL (7-18) Creatinine 2.45 MG/DL (0.60-1.30) Random Glucose 77 MG/DL (74-106) Total Protein 7.3 GM/DL (6.4-8.2) Albumin 1.8 GM/DL (3.4-5.0) Calcium Level 7.9 MG/DL (8.5-10.1) Alkaline Phosphatase 91 U/L (45-117) Aspartate Amino Transf (AST/SGOT) 38 U/L (15-37) Alanine Aminotransferase (ALT/SGPT) 15 U/L (12-78) Total Bilirubin 7.1 MG/DL (0.2-1.0) Sodium Level 141 MEQ/L (136-145) Potassium Level 4.0 MEQ/L (3.5-5.1) Chloride Level 105 MEQ/L (98-107) Carbon Dioxide Level 27.1 MEQ/L (21.0-32.0) Anion Gap 9 MEQ/L (5-15) Estimat Glomerular Filtration Rate 26 ML/MIN (>89) Phosphorus Level 2.6 MG/DL (2.5-4.9) Magnesium Level 1.8 MG/DL (1.5-2.5) Total Creatine Kinase 78 U/L (39-308) Troponin I LESS THAN 0.02 NG/ML B-Type Natriuretic Peptide 122 PG/ML (0-100) Thyroid Stimulating Hormone 3rd Gen 6.440 uIU/ML (0.358-3.740) Ethyl Alcohol Level LESS THAN 3 MG/DL (0-5) Ammonia 70 MCMOL/L (11-32) Urine Color DARK-BROWN (YELLW/STRAW) Urine Turbidity HAZY (CLEAR) Urine pH 5.0 (5.0-8.5) Urine Specific [place] 1.022 (1.002-1.035) Urine Protein 30 mg/dL (NEG-TRACE) Urine Glucose (UA) NEG mg/dL (NEG) Urine Ketones TRACE mg/dL (NEG) Urine Occult Blood SMALL (NEG) Urine Nitrite NEG (NEG) Urine Bilirubin SMALL (NEG) Urine Urobilinogen 4.0 MG/DL (LESS THAN Urine Leukocyte Esterase TRACE (NEG) Urine RBC 6 /hpf (0-3) Urine WBC 3 /hpf (0-5) Urine Squamous Epithelial Cells <1 /hpf (0-5) Urine Bacteria FEW /hpf (NONE) Urine Hyaline Casts 10 /lpf (RARE) Urine Mucus FEW /lpf (OCC) Microscopic Urinalysis Comment CATH-CULTURE IND Urine Random Sodium 5 MEQ/L Urine Opiates Screen NEG (NEG) Urine Barbiturates Screen NEG (NEG) Urine Amphetamines Screen NEG (NEG) Urine Benzodiazepines Screen NEG (NEG) Urine Cocaine Screen NEG (NEG) Urine Cannabinoids Screen NEG (NEG) Lactic Acid Level 2.4 mmol/L (0.4-2.0) Test 11/20/17 05:35 11/21/17 05:55 White Blood Count 7.9 TH/MM3 (4.0-11.0) 4.5 TH/MM3 (4.0-11.0) Red Blood Count 2.05 MIL/MM3 (4.50-5.90) 1.79 MIL/MM3 (4.50-5.90) Hemoglobin 8.3 GM/DL (13.0-17.0) 7.2 GM/DL (13.0-17.0) Hematocrit 23.4 % (39.0-51.0) 20.4 % (39.0-51.0) Mean Corpuscular Volume 114.3 FL (80.0-100.0) 114.3 FL (80.0-100.0) Mean Corpuscular Hemoglobin 40.7 PG (27.0-34.0) 40.1 PG (27.0-34.0) Mean Corpuscular Hemoglobin Concent 35.6 % (32.0-36.0) 35.1 % (32.0-36.0) Red Cell Distribution Width 16.6 % (11.6-17.2) 16.8 % (11.6-17.2) Platelet Count 61 TH/MM3 (150-450) 52 TH/MM3 (150-450) Mean Platelet Volume 8.2 FL (7.0-11.0) 7.7 FL (7.0-11.0) Neutrophils (%) (Auto) 56.0 % (16.0-70.0) 70.2 % (16.0-70.0) Lymphocytes (%) (Auto) 28.1 % (9.0-44.0) 22.1 % (9.0-44.0) Monocytes (%) (Auto) 7.8 % (0.0-8.0) 7.5 % (0.0-8.0) Eosinophils (%) (Auto) 7.7 % (0.0-4.0) 0.1 % (0.0-4.0) Basophils (%) (Auto) 0.4 % (0.0-2.0) 0.1 % (0.0-2.0) Neutrophils # (Auto) 4.4 TH/MM3 (1.8-7.7) 3.2 TH/MM3 (1.8-7.7) Lymphocytes # (Auto) 2.2 TH/MM3 (1.0-4.8) 1.0 TH/MM3 (1.0-4.8) Monocytes # (Auto) 0.6 TH/MM3 (0-0.9) 0.3 TH/MM3 (0-0.9) Eosinophils # (Auto) 0.6 TH/MM3 (0-0.4) 0.0 TH/MM3 (0-0.4) Basophils # (Auto) 0.0 TH/MM3 (0-0.2) 0.0 TH/MM3 (0-0.2) CBC Comment AUTO DIFF AUTO DIFF Differential Comment AUTO DIFF CONFIRMED AUTO DIFF CONFIRMED Platelet Estimate LOW (NORMAL) LOW (NORMAL) Platelet Morphology Comment NORMAL (NORMAL) NORMAL (NORMAL) Blood Urea Nitrogen 35 MG/DL (7-18) 38 MG/DL (7-18) Creatinine 2.15 MG/DL (0.60-1.30) 1.79 MG/DL (0.60-1.30) Random Glucose 65 MG/DL (74-106) 150 MG/DL (74-106) Total Protein 6.5 GM/DL (6.4-8.2) 6.9 GM/DL (6.4-8.2) Albumin 1.6 GM/DL (3.4-5.0) 2.1 GM/DL (3.4-5.0) Calcium Level 7.9 MG/DL (8.5-10.1) 7.9 MG/DL (8.5-10.1) Alkaline Phosphatase 71 U/L (45-117) 65 U/L (45-117) Aspartate Amino Transf (AST/SGOT) 36 U/L (15-37) 33 U/L (15-37) Alanine Aminotransferase (ALT/SGPT) 14 U/L (12-78) 15 U/L (12-78) Total Bilirubin 6.4 MG/DL (0.2-1.0) 5.2 MG/DL (0.2-1.0) Sodium Level 142 MEQ/L (136-145) 142 MEQ/L (136-145) Potassium Level 4.1 MEQ/L (3.5-5.1) 4.1 MEQ/L (3.5-5.1) Chloride Level 109 MEQ/L (98-107) 109 MEQ/L (98-107) Carbon Dioxide Level 27.7 MEQ/L (21.0-32.0) 25.2 MEQ/L (21.0-32.0) Anion Gap 5 MEQ/L (5-15) 8 MEQ/L (5-15) Estimat Glomerular Filtration Rate 31 ML/MIN (>89) 38 ML/MIN (>89) Lactic Acid Level 1.6 mmol/L (0.4-2.0) Ammonia 91 MCMOL/L (11-32) 43 MCMOL/L (11-32) Toxic Granulation 1+ (NORMAL) Ovalocytes 1+ (NORMAL) Prothrombin Time 17.6 SEC (9.8-11.6) Prothromb Time International Ratio 1.7 RATIO . Result Diagram: 11/21/17 0555 11/21/17 0555 Microbiology Microbiology Date/Time Source Procedure Growth Status 11/19/17 19:35 Blood Peripheral Aerobic Blood Culture - Preliminary Staph Sp Coagulase Negative Resulted 11/19/17 19:35 Blood Peripheral Anaerobic Blood Culture - Preliminary NO GROWTH IN 2 DAYS Resulted 11/19/17 19:35 Blood Peripheral Aerobic Blood Culture - Preliminary NO GROWTH IN 2 DAYS Resulted 11/19/17 19:35 Blood Peripheral Anaerobic Blood Culture - Preliminary NO GROWTH IN 2 DAYS Resulted 11/20/17 20:50 Stool Stool Stool Occult Blood (JAKE) - Final HEMOCCULT NEGATIVE Complete 11/19/17 15:15 Urine Catheterized Urine Urine Culture - Final NO GROWTH IN 48 HOURS. Complete Imaging Last 72 hours Impressions Hip and Pelvis X-Ray 11/20/17 0000 Signed Impressions: Service Date/Time: Monday, November 20, 2017 13:57 - CONCLUSION: No acute fracture right hip. Tim Miranda MD Head CT 11/19/17 1431 Signed Impressions: Service Date/Time: Sunday, November 19, 2017 14:47 - CONCLUSION: Stable unremarkable exam for age. Donte Samuels MD Chest X-Ray 11/19/17 1431 Signed Impressions: Service Date/Time: Sunday, November 19, 2017 15:12 - CONCLUSION: 1. Right lower lung zone airspace disease and volume loss consistent with atelectasis with probable small effusion. Dustin Melo MD Renal Ultrasound 11/19/17 0000 Signed Impressions: Service Date/Time: Sunday, November 19, 2017 19:50 - CONCLUSION: 1. Small kidneys bilaterally. 2. No hydronephrosis or solid renal mass identified sonographically. 3. Some ascites within the right abdomen. 4. Limited evaluation of the urinary bladder which is nondistended. Tanvir Alarcon MD . Assessment and Plan Disease Oriented Problem List: (1) Cystitis (2) Hepatic encephalopathy (3) Cirrhosis (4) Cystitis (5) UTI (urinary tract infection) Symptom Scale: (1) Dyspnea (2) Confusion (3) Pain Pertinent Non-Medical Issues Psychosocial:Patient is originally from [place], [place]. He is a . He states he has no children. He lives with his girlfriend who he states worked as a nurse. Heavy, daily EtOH consumption Spiritual: None uatsdin Legal: Patient completed healthcare surrogate designation form on 11/20/2017. His girlfriend, Mary Vincent, is designated as the healthcare surrogate decision maker. Ethical issues impacting care: No ethical issues impacting care at this time. Important Contacts Mary Vincent, significant other: [phone] . Prognosis Patient is a 67-year-old male with a known history of cirrhosis and heavy EtOH consumption. Meld score: 30 with a 90 day mortality rate of 62%. Poor prognosis. Patient would be appropriate for hospice if/when his goals become comfort oriented. . Code Status: Full Code Plan * FULL CODE * Decision-making: Patient completed healthcare surrogate designation form on . Mary Vincent, patient's girlfriend, is designated as the healthcare surrogate decision maker. * AGGRESSIVE GOALS * Symptom management-pain: Patient denies pain on exam today. Previously complaining of right hip pain and tenderness with palpation, no known history of recent falls. X-ray of the right hip and pelvis showed no acute fracture. Patient is at risk for further pain due to ascites, generalized weakness, bedbound status and invasive lines. * Symptom management-dyspnea: Patient having dyspnea with conversation. Oxygen saturation saturations in the high 90s on room air. CXR showing right lower lung zone airspace disease and volume loss consistent with atelectasis and probable small effusion. Some ascites within the right abdomen was noted during renal ultrasound. Patient will remain high risk for pneumonia, ongoing respiratory issues secondary to his underlying disease processes and debilitation, bedbound status. Continue to monitor. * Symptom management-confusion: Encephalopathy due to acute decompensation of cirrhosis vs. infection vs. hepatorenal syndrome-resolving CT head was negative. Urine drug screen and toxicology screen negative; alcohol level negative. Ammonia level continues to trend downward. Patient receiving lactulose 30ml QID. * Meld score of 30 with 3-month mortality rate >50%. * Discussed patient with bedside nurse, Julien. * Patient and girlfriend express ongoing aggressive goals stating no one gonna anytime soon. They were unwilling to discuss patient's significant cirrhosis /liver disease at the time of my visit saying "it doesn't matter what you or anyone else thinks." Palliative care will continue to follow this patient to provide ongoing support/education and to facilitate further conversations regarding patient's medical conditions, overall prognosis and his medical treatment goals. . Attestation To help prompt me to consider important information that might be impacting today's encounter and assessment, information from prior notes written by myself or my colleagues may have been "brought forward" into today's note. My signature on this note, however, is an attestation that I personally performed the exam, history, and/or decision-making noted today, and, unless otherwise indicated, the interactions with patient, family, and staff as well as the review of records all occurred today. I also attest that the listed assessment and stated plan reflect my best clinical judgment today based on the combination of historical information, prior notes, and today's exam/ interactions. When time spent is documented, it refers only to time spent today by the signer, or if indicated, combined time spent today by collaborating physician/nurse practitioner. . Denise Houser Nov 21, 2017 12:49
--- NOTE | 2017-11-21 13:51 | HHI.GIFU ---
Subjective Remarks Pt alert today, no GI complaints. 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 Denies any bleeding. (Marla Haines) Objective Vitals I&O Vital Signs Date Time Temp Pulse Resp B/P (MAP) Pulse Ox O2 Delivery O2 Flow Rate FiO2 11/21/17 11:51 98.0 84 18 126/74 (91) 93 11/21/17 10:26 86 11/21/17 09:09 95 11/21/17 07:48 97.4 93 18 119/72 (88) 95 11/21/17 05:01 97.4 87 18 103/59 (74) 94 11/21/17 03:01 82 11/21/17 01:08 98.5 87 18 104/60 (75) 94 11/20/17 20:35 97.8 97 18 104/59 (74) 97 11/20/17 20:14 86 11/20/17 16:00 90 11/20/17 15:35 97.6 86 20 104/56 (72) 97 I/O 11/20/17 11/20/17 11/20/17 11/21/17 11/21/17 11/21/17 07:00 15:00 23:00 07:00 15:00 23:00 Intake Total 1000 ml 480 ml 1100 ml Output Total 450 ml 500 ml Balance 550 ml -20 ml 1100 ml Intake Oral 480 ml IV Total 1000 ml 1100 ml Output Urine Total 450 ml 500 ml Laboratory Laboratory Tests Test 11/21/17 05:55 White Blood Count 4.5 Red Blood Count 1.79 Hemoglobin 7.2 Hematocrit 20.4 Mean Corpuscular Volume 114.3 Mean Corpuscular Hemoglobin 40.1 Mean Corpuscular Hemoglobin Concent 35.1 Red Cell Distribution Width 16.8 Platelet Count 52 Mean Platelet Volume 7.7 Neutrophils (%) (Auto) 70.2 Lymphocytes (%) (Auto) 22.1 Monocytes (%) (Auto) 7.5 Eosinophils (%) (Auto) 0.1 Basophils (%) (Auto) 0.1 Neutrophils # (Auto) 3.2 Lymphocytes # (Auto) 1.0 Monocytes # (Auto) 0.3 Eosinophils # (Auto) 0.0 Basophils # (Auto) 0.0 CBC Comment AUTO DIFF Differential Comment AUTO DIFF CONFIRMED Toxic Granulation 1+ Platelet Estimate LOW Platelet Morphology Comment NORMAL Ovalocytes 1+ Prothrombin Time 17.6 Prothromb Time International Ratio 1.7 Blood Urea Nitrogen 38 Creatinine 1.79 Random Glucose 150 Total Protein 6.9 Albumin 2.1 Calcium Level 7.9 Alkaline Phosphatase 65 Aspartate Amino Transf (AST/SGOT) 33 Alanine Aminotransferase (ALT/SGPT) 15 Total Bilirubin 5.2 Sodium Level 142 Potassium Level 4.1 Chloride Level 109 Carbon Dioxide Level 25.2 Anion Gap 8 Estimat Glomerular Filtration Rate 38 Ammonia 43 Date/Time Source Procedure Growth Status 11/19/17 19:35 Blood Peripheral Aerobic Blood Culture - Preliminary Staph Sp Coagulase Negative Resulted 11/19/17 19:35 Blood Peripheral Anaerobic Blood Culture - Preliminary NO GROWTH IN 2 DAYS Resulted 11/20/17 20:50 Stool Stool Stool Occult Blood (JAKE) - Final HEMOCCULT NEGATIVE Complete 11/19/17 15:15 Urine Catheterized Urine Urine Culture - Final NO GROWTH IN 48 HOURS. Complete Imaging Last Impressions Hip and Pelvis X-Ray 11/20/17 0000 Signed Impressions: Service Date/Time: Monday, November 20, 2017 13:57 - CONCLUSION: No acute fracture right hip. Tim Miranda MD Head CT 11/19/17 1431 Signed Impressions: Service Date/Time: Sunday, November 19, 2017 14:47 - CONCLUSION: Stable unremarkable exam for age. Donte Samuels MD Chest X-Ray 11/19/17 1431 Signed Impressions: Service Date/Time: Sunday, November 19, 2017 15:12 - CONCLUSION: 1. Right lower lung zone airspace disease and volume loss consistent with atelectasis with probable small effusion. Dustin Melo MD Renal Ultrasound 11/19/17 0000 Signed Impressions: Service Date/Time: Sunday, November 19, 2017 19:50 - CONCLUSION: 1. Small kidneys bilaterally. 2. No hydronephrosis or solid renal mass identified sonographically. 3. Some ascites within the right abdomen. 4. Limited evaluation of the urinary bladder which is nondistended. Tanvir Alarcon MD Physical Exam HEENT: PERRL; normocephalic; atraumatic; mild icterus CHEST: wheezes CARDIAC: RRR ABDOMEN: Soft,distended, nontender; no hepatosplenomegaly; bowel sounds are present in all four quadrants. EXTREMITIES: No clubbing, cyanosis, trace BLE edema SKIN: Normal; no rash; no jaundice. AIR CONDITIONING ENGINEER: No focal deficits; alert and oriented times three. (Marla Haines) Assessment and Plan Plan ASSESSMENT - cirrhosis, elevated bilirubin - likely 2/2 ETOH. had liver w/u 08/07 unremarkable other than HCV ab reactive. hx heavy drinking quit 2 weeks ago MELD 29, DF 44 could benefit from steroids if no contraindication, if not then pentoxifylline. ?hepatorenal urine na 5. Creatinine - elevated NH - 70 on admission and worsened, started on QID lactulose and seems more alert today than noted in reports on admission - n/v, CGE - has had n/v for 2 weeks, some coffee ground appearance. EGD by Dr Russell showed severe circumferential esophagitis and portal gastropathy. he is on carafate now - anemia - macrocytic - thrombocytopenia - coagulopathy - INR 2.0 on admission - cystitis, DIONTE per primary 11/21/17 - ammonia decreased and pt more alert. likely ETOH hepatitis resolving. His hgb dropped to7.2 but on rck was 8.6 , no obvious bleeding & stool neg for occult blood. nephrology on case now, feel this is DIONTE. tbil trending down. 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
[2017-11-21 14:38] LABS: HEMATOCRIT 24.6 % (39.0-51.0); HEMOGLOBIN 8.6 GM/DL (13.0-17.0)
--- NOTE | 2017-11-21 15:58 | HHI.NPPN ---
Subjective History of Present Illness This is a 67-year-old male with a known history of cirrhosis and heavy alcohol use who was brought to the emergency department by [facility] due to altered mental status after being found confused at home by home health care. He was recently hospitalized at [facility] from 11/12/17 through 11/16/17 for generalized weakness, mental status changes and falls. He found to have elevated creatinine at 2.15 and GFR 31ml/min. Upon discharge from [facility] had creatinine of 1.01. Patient has significant lower extremity edema and albumin level of 1.6. Additional Remarks Patient is resting comfortably. Denies any SOB. Lower extremity edema improving. (Rosio Reynoso) Review of Systems Respiratory Respiratory Remarks Denies any SOB e (Rosio Reynoso) Gastrointestinal GI Remarks denies any abdominal pain (Rosio Reynoso) Genitourinary Remarks Denies any Dysuria (Rosio Reynoso) Objective Data Data 11/21/17 11/22/17 19:00 07:00 Output Total 400 ml Balance -400 ml Output Urine Total 400 ml Vital Signs Date Time Temp Pulse Resp B/P (MAP) Pulse Ox O2 Delivery O2 Flow Rate FiO2 11/21/17 11:51 98.0 84 18 126/74 (91) 93 11/21/17 10:26 86 11/21/17 09:09 95 11/21/17 07:48 97.4 93 18 119/72 (88) 95 11/21/17 05:01 97.4 87 18 103/59 (74) 94 11/21/17 03:01 82 11/21/17 01:08 98.5 87 18 104/60 (75) 94 11/20/17 20:35 97.8 97 18 104/59 (74) 97 11/20/17 20:14 86 11/20/17 16:00 90 (Rosio Reynoso) -: 11/21/17 1340 11/21/17 0555 Microbiology 11/20/17 Stool Occult Blood (JAKE) - Final, Complete HEMOCCULT NEGATIVE Imaging Last Impressions Hip and Pelvis X-Ray 11/20/17 0000 Signed Impressions: Service Date/Time: Monday, November 20, 2017 13:57 - CONCLUSION: No acute fracture right hip. Tim Miranda MD Head CT 11/19/17 1431 Signed Impressions: Service Date/Time: Sunday, November 19, 2017 14:47 - CONCLUSION: Stable unremarkable exam for age. Donte Samuels MD Chest X-Ray 11/19/17 1431 Signed Impressions: Service Date/Time: Sunday, November 19, 2017 15:12 - CONCLUSION: 1. Right lower lung zone airspace disease and volume loss consistent with atelectasis with probable small effusion. Dustin Melo MD Renal Ultrasound 11/19/17 0000 Signed Impressions: Service Date/Time: Sunday, November 19, 2017 19:50 - CONCLUSION: 1. Small kidneys bilaterally. 2. No hydronephrosis or solid renal mass identified sonographically. 3. Some ascites within the right abdomen. 4. Limited evaluation of the urinary bladder which is nondistended. Tanvir Alarcon MD (Rosio Reynoso M. [employer]ANDING SU[employer] SPECIALIST) Physical Exam General Appearance: No Acute Distress, Comfortable (GellermannSeraRosio M. [employer]ANDING SUPPORT SPECIALIST) Eyes Eye Exam: Pupils Equal (GellermannSeraRosio M. [employer]ANDING SUPPORT SPECIALIST) Throat Throat Exam: Oral Mucosa [place] & Moist (GellermannSeraRosio M. LANDING SUPPORT SPECIALIST) Pulmonary Resp Exam: Clear Bilaterally, Breath Sounds Equal, No Distress (GellermannRosio M. LANDING SUPPORT SPECIALIST) Cardiology CV Exam: Regular (GellermannSeraRosio M. LANDING SUPPORT SPECIALIST) Gastrointestinal/Abdomen GI Exam: Soft, Non-Tender, Bowel Sounds Present (GellermannSeraRosio M. LANDING SUPPORT SPECIALIST) Genitourinary Exam: Flank Non-Tender (GellermannRosio M. LANDING SUPPORT SPECIALIST) Integumentary Skin Exam: Clear, Warm (GellermannSeraRosio M. LANDING SUPPORT SPECIALIST) Extremeties Extremities Exam: Pitting Edema (GellermannSeraRosio M. LANDING SUPPORT SPECIALIST) Neurologic Neuro Exam: Alert, Awake (GellermannSeraRosio M. LANDING SUPPORT SPECIALIST) Psychiatric Psych Exam: Appropriate Responses (GellerSera staleyne M. [employer]ANDING SUPPORT SPECIALIST) Assessment/Plan Problem List: (1) DIONTE (acute kidney injury) ICD Codes: N17.9 - Acute kidney failure, unspecified Status: Acute Plan: DIONTE may be from dehydration, ATN, UTI Creatinine improved at 1.79 from 2.15 Renal ultrasound showing small kidneys bilaterally with no hydronephrosis or solid renal mass identified lower extremity edema improving Blood pressure improved Urine with 1+ proteinuria Plan Continue Albumin every 12 hours Continue IVF Avoid nephrotoxins Monitor labs and I+O. Hold diuretics. (2) UTI (urinary tract infection) ICD Codes: N39.0 - Urinary tract infection, site not specified Status: Acute Plan: Culture negative (3) Cirrhosis ICD Codes: K74.60 - Unspecified cirrhosis of liver (4) Confusion ICD Codes: R41.0 - Disorientation, unspecified (Rosio Reynoso) Problem List: (1) DIONTE (acute kidney injury) ICD Codes: N17.9 - Acute kidney failure, unspecified Status: Acute Plan: DIONTE may be from dehydration, ATN, UTI Creatinine improved at 1.79 from 2.15 Renal ultrasound showing small kidneys bilaterally with no hydronephrosis or solid renal mass identified lower extremity edema improving Blood pressure improved Urine with 1+ proteinuria Plan Continue Albumin every 12 hours Continue IVF Avoid nephrotoxins Monitor labs and I+O. Hold diuretics. Patient seen and examined, agree with above. Urine Na. was low, possibly pre renal. (2) UTI (urinary tract infection) ICD Codes: N39.0 - Urinary tract infection, site not specified Status: Acute Plan: Culture negative (3) Cirrhosis ICD Codes: K74.60 - Unspecified cirrhosis of liver (4) Confusion ICD Codes: R41.0 - Disorientation, unspecified (Shawn Avina MD) Problem Qualifiers (1) UTI (urinary tract infection): Qualified Codes: N30.00 - Acute cystitis without hematuria (2) Cirrhosis: Qualified Codes: K70.31 - Alcoholic cirrhosis of liver with ascites Rosio Reynoso Nov 21, 2017 15:58 Shawn Avina MD Nov 21, 2017 18:07
[2017-11-21] MEDS: cefTRIAXone INJ 1,000 MG in SODIUM CHLORIDE 0.9% INJ 100 ML IV SCH (17:06)
[2017-11-22] VITALS: BP_SYST 101; BP_SYST 133; BP_DIAS 58; BP_DIAS 98; PULSE 100; PULSE 92; RESP 18; RESP 20; TEMP 97.5; TEMP 98; O2SAT 95; O2SAT 99
[2017-11-22] MEDS: SODIUM CHLOR 0.9% 1000 ML INJ 1,000 ML IV SCH ×2 (00:17→05:32)
[2017-11-22 00:40] VITALS: PULSE 85
[2017-11-22] MEDS: ALBUMIN 25% INJ 100 ML IV SCH (03:02)
[2017-11-22 04:00] VITALS: BP 99/59; PULSE 89; RESP 17; TEMP 97.6; O2SAT 96
[2017-11-22] MEDS: SODIUM CHLORIDE 0.9% FLUSH 10 ML FLUSH IV FLUSH SCH (07:24)
[2017-11-22] MEDS: LACTULOSE SYRUP 20 GM/30 ML CUP PO SCH (07:50)
[2017-11-22] MEDS: SUCRALFATE 1 GM TAB PO SCH (07:50)
[2017-11-22] MEDS: SPIRONOLACTONE 25 MG TAB PO SCH (07:50)
[2017-11-22] MEDS: prednisoLONE 10 MG ODT TAB PO SCH (07:50)
[2017-11-22] MEDS: PANTOPRAZOLE SOD 40 MG DELAYED RELEASE TAB PO SCH (07:50)
[2017-11-22 07:53] VITALS: BP 115/70; PULSE 88; RESP 22; TEMP 97.6; O2SAT 96
--- NOTE | 2017-11-22 08:54 | HHI.FPPN ---
Subjective Remarks Patient seen this morning by medical team. Per nursing report, patient has refused every treatment and therapy since yesterday afternoon. He has become abusive towards the staff and demands to be discharged. During the medical team' s interview the patient is argumentative stating that "he is going home once his girlfriend gets here." Medical team thoroughly explained the acuity of his cirrhosis and high predictability of mortality with the MELDS score. Patient states that "he is fine and isn't dying anytime soon." Team informed the patient that if he were to leave he will be leaving AGAINST MEDICAL ADVICE. We thoroughly explained that this could lead to worsening mental status, SOB, bleeding, or even possible . Patient stated that he understood these risks and wishes to pursue being discharged AGAINST MEDICAL ADVICE. He reports that he will signs AMA paperwork once his ride arrives to the hospital. No exam or ROS completed as patient refuses any intervention. Objective Vitals Vital Signs Date Time Temp Pulse Resp B/P (MAP) Pulse Ox O2 Delivery O2 Flow Rate FiO2 11/22/17 07:53 97.6 88 22 115/70 (85) 96 11/22/17 04:00 97.6 89 17 99/59 (72) 96 11/22/17 00:40 85 11/22/17 00:00 98.0 92 20 101/58 (72) 95 11/21/17 20:00 97.9 97 18 113/58 (76) 97 11/21/17 19:57 97 11/21/17 16:00 97.6 87 18 124/69 (87) 97 11/21/17 11:51 98.0 84 18 126/74 (91) 93 11/21/17 10:26 86 11/21/17 09:09 95 I/O 11/21/17 11/21/17 11/21/17 11/22/17 11/22/17 11/22/17 07:00 15:00 23:00 07:00 15:00 23:00 Intake Total 1100 ml 1200 ml Output Total 400 ml Balance 1100 ml -400 ml 1200 ml IV Total 1100 ml 1200 ml Output Urine Total 400 ml # Voids 3 # Bowel Movements 1 Result Diagram: 11/21/17 1340 11/21/17 0555 Objective Remarks Gen.: Patient refuses physical exam at this time. A/P Assessment and Plan Patient is a 67-year-old male with a past medical history significant for cirrhosis admitted for altered mental status. Discharge Planning Patient states he is leaving AMA today. He reports he has "spoken to his doctor and he can take care of me." Problem List: (1) Altered mental status ICD Codes: R41.82 - Altered mental status, unspecified Status: Acute Plan: Secondary to alcoholic cirrhosis Nephrology consulted for further evaluation -Albumin twice a day -Avoid nephrotoxins -Holding diuretics GI consulted for further evaluation -Lactulose 30 mg 4 times a day ordered -Continue prednisolone -Protonix twice a day -Hepatitis C quant and genotype: Pending -Transfuse as indicated Palliative medicine consult to clarify goals of treatment -Patient remains full code -Mary MCNAIR (patient's girlfriend) -Workup: Head CT negative Alcohol level wnl Ammonia improved to 43 No hypokalemia or hyponatremia Urinary tract infection treated as below and urine culture pending UDS and tox screen negative, alcohol level negative TSH mildly elevated at 6.4 Blood cultures: One vial with gram-positive cocci (likely contaminate) defer treatment until identification as patient is not acutely infected (2) Cirrhosis ICD Codes: K74.60 - Unspecified cirrhosis of liver Plan: GI consulted for further evaluation and management - MELD score of 30 on arrival with a 50% mortality rate Work Up: -Ammonia improved to 43, repeat refused -Bilirubin improved to 5.2, AST improved to 33, ALT within normal limits, alkaline phosphatase within normal limits -INR improved to 1.7 with no anticoagulation -Albumin improved to 2.1 (3) DIONTE (acute kidney injury) ICD Codes: N17.9 - Acute kidney failure, unspecified Status: Acute Plan: May be secondary to hepatorenal syndrome versus dehydration versus ATN versus obstruction. -Nephrology consulted as above Work Up: Creatinine elevated at 2.45 on arrival, improved to 1.79 after a gentle IV hydration Renal ultrasound showing small kidneys bilaterally with no hydronephrosis or solid renal mass identified (4) Anemia ICD Codes: D64.9 - Anemia, unspecified Status: Acute Plan: Lab work from [facility] shows a discharge hemoglobin of 7.9 - Hemoglobin 8.6, repeat refused - Hemoccult refused Work Up: EGD performed at [facility] reviewed showing esophagitis but no active bleeding Continue to monitor with lab work and transfuse as needed (5) Cystitis ICD Codes: N30.90 - Cystitis, unspecified without hematuria Status: Acute Plan: UA significant for trace leukocyte esterase, few bacteria, few mucus, small occult blood - Follow urine culture: NTD - Follow blood cultures: Gram-positive cocci in 1/4 vials, identification to follow - Rocephin 1g IV Q24H (11/19-11/21) (6) Nutrition, metabolism, and development symptoms ICD Codes: R63.8 - Other symptoms and signs concerning food and fluid intake Status: Acute Plan: Fluids: Refused Electrolytes: Refusing laboratory draw Nutrition: Speech has performed for study and cleared for nectar thickened liquids DVT PPx: Hold chemical anticoagulation given elevated INR of 2.0 in the setting of cirrhosis. SCD's. Problem Qualifiers (1) Altered mental status: Qualified Codes: R41.0 - Disorientation, unspecified (2) Cirrhosis: Qualified Codes: K70.31 - Alcoholic cirrhosis of liver with ascites (3) Anemia: Qualified Codes: D64.89 - Other specified anemias Long Helms MD R2 Nov 22, 2017 08:53
[2017-11-22 09:27] VITALS: PULSE 89
--- NOTE | 2017-11-22 09:55 | PD.AMA ---
Against Medical Advice Note Diagnosis: (1) Cirrhosis (2) Altered mental status Discharge Disposition: Against Medical Advice Pt Condition on Discharge: Guarded AMA Statement Patient Kimani Humphrey has decided to leave the hospital against medical advice. This patient has the capacity to refuse care and understands the risks of leaving, including permanent disability and/or , and has had an opportunity to ask questions about his condition. The patient has been informed that he will not be accepted back to the Family Medicine Residency Service, but can be seen at [facility] should his condition worsen. Long Helms MD R2 Nov 22, 2017 09:55
--- NOTE | 2017-11-22 09:55 | HHI.DCPOC ---
Discharge Care Plan Diagnosis: (1) Cirrhosis (2) Altered mental status (3) Cystitis Additional Problems Patient left hospitalization AGAINST MEDICAL ADVICE Goals to Promote Your Health * To prevent worsening of your condition and complications * To maintain your health at the optimal level Directions to Meet Your Goals Take your medications as prescribed Follow your dietary instruction Follow activity as directed Keep your appointments as scheduled Take your immunizations and boosters as scheduled If your symptoms worsen call your PCP, if no PCP go to Urgent Care Center or Emergency Room Smoking is Dangerous to Your Health. Avoid second hand smoke Call the 24-hour hour crisis hotline for domestic abuse at Long Helms MD R2 Nov 22, 2017 09:55
--- NOTE | 2017-11-22 10:50 | HHI.DS ---
Discharge Summary Admission Date Nov 19, 2017 at 17:45 Discharge Date: Nov 22, 2017 Admitting Diagnosis (1) Altered mental status Diagnosis: Principal Plan: Secondary to alcoholic cirrhosis Nephrology consulted for further evaluation -Albumin twice a day -Avoid nephrotoxins -Holding diuretics GI consulted for further evaluation -Lactulose 30 mg 4 times a day ordered -Continue prednisolone -Protonix twice a day -Hepatitis C quant and genotype: Pending -Transfuse as indicated Palliative medicine consult to clarify goals of treatment -Patient remains full code -Mary MCNAIR (patient's girlfriend) -Workup: Head CT negative Alcohol level wnl Ammonia improved to 43 No hypokalemia or hyponatremia Urinary tract infection treated as below and urine culture pending UDS and tox screen negative, alcohol level negative TSH mildly elevated at 6.4 Blood cultures: One vial with gram-positive cocci (likely contaminate) defer treatment until identification as patient is not acutely infected ICD Codes: R41.82 - Altered mental status, unspecified Status: Acute (2) Cirrhosis Diagnosis: Principal Plan: GI consulted for further evaluation and management - MELD score of 30 on arrival with a 50% mortality rate Work Up: -Ammonia improved to 43, repeat refused -Bilirubin improved to 5.2, AST improved to 33, ALT within normal limits, alkaline phosphatase within normal limits -INR improved to 1.7 with no anticoagulation -Albumin improved to 2.1 ICD Codes: K74.60 - Unspecified cirrhosis of liver (3) DIONTE (acute kidney injury) Diagnosis: Principal Plan: May be secondary to hepatorenal syndrome versus dehydration versus ATN versus obstruction. -Nephrology consulted as above Work Up: Creatinine elevated at 2.45 on arrival, improved to 1.79 after a gentle IV hydration Renal ultrasound showing small kidneys bilaterally with no hydronephrosis or solid renal mass identified ICD Codes: N17.9 - Acute kidney failure, unspecified Status: Acute (4) Anemia Diagnosis: Principal Plan: Lab work from [facility] shows a discharge hemoglobin of 7.9 - Hemoglobin 8.6, repeat refused - Hemoccult refused Work Up: EGD performed at [facility] reviewed showing esophagitis but no active bleeding Continue to monitor with lab work and transfuse as needed ICD Codes: D64.9 - Anemia, unspecified Status: Acute (5) Cystitis Diagnosis: Principal Plan: UA significant for trace leukocyte esterase, few bacteria, few mucus, small occult blood - Follow urine culture: NTD - Follow blood cultures: Gram-positive cocci in 1/4 vials, identification to follow - Rocephin 1g IV Q24H (11/19-11/21) ICD Codes: N30.90 - Cystitis, unspecified without hematuria Status: Acute (6) Nutrition, metabolism, and development symptoms Diagnosis: Principal Plan: Fluids: Refused Electrolytes: Refusing laboratory draw Nutrition: Speech has performed for study and cleared for nectar thickened liquids DVT PPx: Hold chemical anticoagulation given elevated INR of 2.0 in the setting of cirrhosis. SCD's. ICD Codes: R63.8 - Other symptoms and signs concerning food and fluid intake Status: Acute Brief History This is a 67-year-old male with a known history of cirrhosis and heavy alcohol use who was brought to the emergency department by [facility] due to altered mental status after being found confused at home by home health care. He was recently hospitalized at [facility] from 11/12/17 through 11/16/17 for generalized weakness, mental status changes and falls. While at [facility], he was evaluated by the GI service for pancytopenia and abnormal LFTs. He was treated for alcohol withdrawal with Ativan and was given a dose of IV Venofer for his anemia. He had a significant workup documented as below: 11/14/17 - EGD for evaluation of anemia: LA grade D esophagitis with no bleeding found in the lower two thirds of the esophagus. 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 Mild portal hypertensive gastropathy was found in the gastric fundus. The examined jejunum was normal. 11/12/17 - Ultrasound of the abdomen: Limited study. Small heterogenous echogenic liver. Question cirrhosis. Status post cholecystectomy. Small amount of ascites. 11/12/17 MRI of the abdomen: Unable to find a formal report of this but is mentioned in the [facility] notes as a poor study due to patient movement Upon discharge from [facility], he had lab work showing a hemoglobin of 7.9 and creatinine of 1.01 - he was discharged home with home health care. Home health care arrived at his house and found him altered and confused and therefore called you back to have him brought to the hospital. In the emergency department he was found to have acute kidney failure as well as encephalopathy with an elevated ammonia. He was given lactulose 1 and gentle IV hydration, and his urinalysis was indicative of a urinary tract infection and he was started on Rocephin. This morning on rounds he is somewhat more interactive, but is still altered. He is oriented to person and place, however is not oriented to time or year, stating that it is 1998. He is able to state that he has pain in his abdomen and his right hip. He does not recall what happened at home and does not recall any trauma or falls since being discharged from [facility], but cannot definitively say that he did not have any falls at home. CBC/BMP: 11/21/17 1340 11/21/17 0555 Significant Findings Laboratory Tests Test 11/19/17 14:45 11/19/17 14:55 11/19/17 15:15 11/19/17 19:40 Red Blood Count 2.15 MIL/MM3 (4.50-5.90) Hemoglobin 8.7 GM/DL (13.0-17.0) Hematocrit 24.6 % (39.0-51.0) Mean Corpuscular Volume 114.5 FL (80.0-100.0) Mean Corpuscular Hemoglobin 40.5 PG (27.0-34.0) Platelet Count 66 TH/MM3 (150-450) Eosinophils (%) (Auto) 5.5 % (0.0-4.0) Eosinophils # (Auto) 0.6 TH/MM3 (0-0.4) Band Neutrophils % 10 % (0-6) Eosinophils % 7 % (0-4) Neutrophils # (Manual) 8.3 TH/MM3 (1.8-7.7) Toxic Granulation 2+ (NORMAL) Toxic Vacuolation PRESENT (NONE SEEN) Dohle Bodies PRESENT (NONE SEEN) Platelet Estimate LOW (NORMAL) Spherocytes 1+ (NORMAL) Prothrombin Time 20.3 SEC (9.8-11.6) Activated Partial Thromboplast Time 34.1 SEC (24.3-30.1) Blood Urea Nitrogen 32 MG/DL (7-18) Creatinine 2.45 MG/DL (0.60-1.30) Albumin 1.8 GM/DL (3.4-5.0) Calcium Level 7.9 MG/DL (8.5-10.1) Aspartate Amino Transf (AST/SGOT) 38 U/L (15-37) Total Bilirubin 7.1 MG/DL (0.2-1.0) Estimat Glomerular Filtration Rate 26 ML/MIN (>89) Troponin I LESS THAN 0.02 NG/ML B-Type Natriuretic Peptide 122 PG/ML (0-100) Thyroid Stimulating Hormone 3rd Gen 6.440 uIU/ML (0.358-3.740) Ammonia 70 MCMOL/L (11-32) Urine Color DARK-BROWN (YELLW/STRAW) Urine Turbidity HAZY (CLEAR) Urine Protein 30 mg/dL (NEG-TRACE) Urine Ketones TRACE mg/dL (NEG) Urine Occult Blood SMALL (NEG) Urine Bilirubin SMALL (NEG) Urine Urobilinogen 4.0 MG/DL (LESS THAN Urine Leukocyte Esterase TRACE (NEG) Urine RBC 6 /hpf (0-3) Urine Bacteria FEW /hpf (NONE) Urine Mucus FEW /lpf (OCC) Lactic Acid Level 2.4 mmol/L (0.4-2.0) Test 11/20/17 05:35 11/21/17 05:55 11/21/17 13:40 Red Blood Count 2.05 MIL/MM3 (4.50-5.90) 1.79 MIL/MM3 (4.50-5.90) Hemoglobin 8.3 GM/DL (13.0-17.0) 7.2 GM/DL (13.0-17.0) 8.6 GM/DL (13.0-17.0) Hematocrit 23.4 % (39.0-51.0) 20.4 % (39.0-51.0) 24.6 % (39.0-51.0) Mean Corpuscular Volume 114.3 FL (80.0-100.0) 114.3 FL (80.0-100.0) Mean Corpuscular Hemoglobin 40.7 PG (27.0-34.0) 40.1 PG (27.0-34.0) Platelet Count 61 TH/MM3 (150-450) 52 TH/MM3 (150-450) Eosinophils (%) (Auto) 7.7 % (0.0-4.0) Eosinophils # (Auto) 0.6 TH/MM3 (0-0.4) Platelet Estimate LOW (NORMAL) LOW (NORMAL) Blood Urea Nitrogen 35 MG/DL (7-18) 38 MG/DL (7-18) Creatinine 2.15 MG/DL (0.60-1.30) 1.79 MG/DL (0.60-1.30) Random Glucose 65 MG/DL (74-106) 150 MG/DL (74-106) Albumin 1.6 GM/DL (3.4-5.0) 2.1 GM/DL (3.4-5.0) Calcium Level 7.9 MG/DL (8.5-10.1) 7.9 MG/DL (8.5-10.1) Total Bilirubin 6.4 MG/DL (0.2-1.0) 5.2 MG/DL (0.2-1.0) Chloride Level 109 MEQ/L (98-107) 109 MEQ/L (98-107) Estimat Glomerular Filtration Rate 31 ML/MIN (>89) 38 ML/MIN (>89) Ammonia 91 MCMOL/L (11-32) 43 MCMOL/L (11-32) Neutrophils (%) (Auto) 70.2 % (16.0-70.0) Toxic Granulation 1+ (NORMAL) Ovalocytes 1+ (NORMAL) Prothrombin Time 17.6 SEC (9.8-11.6) PE at Discharge Gen.: Patient refuses physical exam at this time. Hospital Course Patient was admitted for altered mental status secondary to his alcohol cirrhosis. CT scan of his head was negative. Both gastroenterology and nephrology were consulted to assist with management for his alcoholic cirrhosis and hepatorenal syndrome. Patient was started on prednisolone, lactulose, aspirin and gentle IV hydration to assist with his cirrhosis. His mental status improved throughout his hospitalization. However, on 11/22/17 patient became abusive toward the medical staff and demanded to be discharged. He was thoroughly educated on his poor prognosis with a meld score of 30. He was warned of the possible risks involved with leaving the hospital AMA including worsening mental status, bleeding, and possible . Patient repeated back these risks to the medical staff and still confirmed he was leaving AGAINST MEDICAL ADVICE. Patient was educated that he would not be accepted back to the family medicine residency service, however he is able to return to [facility] with worsening condition for future treatment. Nephrology was also consulted for hepatorenal syndrome. Upon admission, patient's creatinine was 2.45 which decreased to 1.79 with gentle IV fluid hydration. Of note patient also found to have urinalysis consistent with possible cystitis. Patient was given ceftriaxone from 11/19 - 11/20. Urine culture was negative. Blood culture was positive with 1 out of 4 vials with coagulase negative staph which was likely contaminant. On hospital day 2, patient was found to be anemic with a hemoglobin decreased from 8.7 on admission to 7.2. Repeat showed an increase in hemoglobin to 8.6 and transfusion was deferred. Finally upon initial evaluation, patient's thyroid-stimulating hormone was noted to be elevated at 6.4. Patient recommended to follow-up with his PCP for further management at this time. Pt Condition on Discharge: Guarded Discharge Instructions Speech Therapy-Diet Recommends: Regular, [place] Thickened Liquids Long Helms MD R2 Nov 22, 2017 10:50
[2017-11-24 03:52] LABS: HCV RNA PCR IU/ML LESS THAN 15 IU/mL (Not Detected)
== END 2017-11-22 09:48 | disposition left against medical advice (07) | DRG 441 ==
LOC: NEPC 14:22 → NEDA 17:45 → N05A 11-20 00:29
PROVIDERS: ADMIT Family Medicine; ATTEND Family Medicine
DX: K72.90 Hepatic failure, unspecified without coma (principal); K76.7 Hepatorenal syndrome; N17.0 Acute kidney failure with tubular necrosis; I95.9 Hypotension, unspecified; D69.6 Thrombocytopenia, unspecified; K70.11 Alcoholic hepatitis with ascites; K76.6 Portal hypertension; I48.91 Unspecified atrial fibrillation; E88.09 Other disorders of plasma-protein metabolism, not elsewhere classified; J98.11 Atelectasis; K70.31 Alcoholic cirrhosis of liver with ascites; E86.0 Dehydration; N27.1 Small kidney, bilateral; K20.9 Esophagitis, unspecified; K31.89 Other diseases of stomach and duodenum; D53.9 Nutritional anemia, unspecified; F10.20 Alcohol dependence, uncomplicated; Y90.0 Blood alcohol level of less than 20 mg/100 ml; Z89.011 Acquired absence of right thumb; Z98.84 Bariatric surgery status; Z23 Encounter for immunization
CPT/HCPCS: 51702; 70450; 71045; 73502; 76775; 80053; 80307; 81001; 82140; 82272; 82550; 83605; 83735; 83880; 84100; 84300; 84443; 84484; 85007; 85014; 85018; 85025; 85027; 85610; 85730; 87040; 87077; 87086; 87186; 87205; 87522; 87902; 90686; 90732; 93005; 96365; J0696; J3370; J7030; J7040; J7510; P9047; Q2038

== ENCOUNTER 2018-01-08 22:34 | Emergency (ER) | payer MEDICARE, MEDICAID ==
[~2018-01-08] VITALS: Ht 175.3 cm; Wt 98.0 kg
[~2018-01-08 22:34] MED LIST changes: -AMOX875T PO; -ASPI81TA23 PO; -FOLI1TAB6 PO; -POTA20TA5 PO; +SPIR25TA PO; +SUCR1TAB PO; -THIA100 PO
[2018-01-08 22:56] VITALS: BP 117/68; PULSE 99; RESP 18; TEMP 98.5; O2SAT 94
--- NOTE | 2018-01-08 23:25 | PD ---
HPI Chief Complaint: Complaint Time Seen by Provider: 23:12 Travel History International Travel<30 days: No Contact w/Intl Traveler<30days: No Traveled to known affect area: No History of Present Illness HPI The patient is a 67 year old male who presents to the [facility] emergency department with a history of hematuria that began 4 hours prior to arrival. He had a fernandez catheter placed to gravity at that time. The fernandez was difficult to place and was able to be placed on the second attempt. He had it placed for urinary retention. He denies having a urologist that he follows with. The patient is currently residing at a half-way for rehabilitation. The patient has a PICC line in place in the right upper extremity which he reports that he receives IV fluids through. The patient reports that he has a history of cirrhosis and a recent diagnosis of pneumonia for which he completed a course of antibiotic and is feeling improved. He reports that he does have some dyspnea on exertion that is chronic, otherwise he denies any new shortness of breath. He denies having any known recent fevers, worsening cough or congestion, neck pain, chest pain, vomiting, diarrhea, or neurologic symptoms. The patient reports that he now has dysuria when he tries to urinate. He also has lower abdominal discomfort and bladder spasms. [facility] Past Medical History Narrative Medical The patient's past medical history is significant for cirrhosis, atrial fibrillation, hiatal hernia, pneumonia. Arthritis: Yes Asthma: No Atrial Fibrillation: Yes Anxiety: No Depression: No Heart Rhythm Problems: Yes (atrial fibrillation ) Cancer: No Cardiovascular Problems: No High Cholesterol: No Chemotherapy: No Chest Pain: No Congestive Heart Failure: No COPD: No Cerebrovascular Accident: No Diabetes: No Diminished Hearing: No Endocrine: No Gastrointestinal Disorders: Yes Hiatal Hernia: Yes Heparin Induced Thrombocytopen: No Hypertension: No Kidney Stones: No Musculoskeletal: No Neurologic: No Psychiatric: No Reproductive: No Respiratory: No Immunizations Current: Yes Migraines: No Radiation Therapy: No Renal Failure: No Seizures: No Sickle Cell Disease: No Sleep Apnea: No Thyroid Disease: No Ulcer: No Tetanus Vaccination: < 5 Years Influenza Vaccination: Yes Past Surgical History Narrative Surgical The patient's past surgical history is significant for stomach surgery for weight loss, 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 AICD: No Arteriovenous Shunt: No Cardiac Surgery: No Cholecystectomy: Yes Ear Surgery: No Endocrine Surgery: No Eye Surgery: No Genitourinary Surgery: No Gynecologic Surgery: No Insulin Pump: No Joint Replacement: No Oral Surgery: No Pacemaker: No Thoracic Surgery: No Other Surgery: Yes (right thumb amputated) Social History Alcohol Use: Yes (quit in October.) Tobacco Use: No Substance Use: No Allergies-Medications (Allergen,Severity, Reaction): Coded Allergies: No Known Allergies (Unverified Allergy, Unknown, 11/19/17) Reported Meds & Prescriptions Reported Meds & Active Scripts Active Pantoprazole (Pantoprazole Sodium) 40 Mg Tab 40 Mg PO DAILY Furosemide 40 Mg Tab 40 Mg PO BID 30 Days Reported Sucralfate 1 Gram Tab 1 Gm PO QID on empty stomach Spironolactone 25 Mg Tab 25 Mg PO BIDPC Review of Systems Except as stated in HPI: all other systems reviewed are Neg General / Constitutional: No: Fever Eyes: No: Visual changes HENT: No: Headaches Cardiovascular: Positive: Dyspnea on exertion, No: Chest Pain or Discomfort Respiratory: No: Cough, Shortness of Breath Gastrointestinal: Positive: Abdominal Pain, No: Nausea, Vomiting, Diarrhea, Changes in Bowel Habits Genitourinary: Positive: Dysuria, Hematuria Musculoskeletal: No: Pain Skin: No Rash Neurologic: No: Weakness, Focal Abnormalities, Change in Mentation, Slurred Speech, Sensory Disturbance Psychiatric: No: Depression Endocrine: No: Polydipsia Hematologic/Lymphatic: No: Easy Bruising Physical Exam Narrative General: The patient is a well-developed well-nourished male in no acute distress. Head and Neck exam: Head is normocephalic atraumatic. Eyes: EOMI, pupils are equal round and reactive to light. Nose: Midline septum with pink mucous membranes Mouth: Dentition unremarkable. Moist mucus membranes. Posterior oropharynx is not erythematous. No tonsillar hypertrophy. Uvula midline. Airway patent. Neck: No palpable lymphadenopathy. No nuchal rigidity. No thyromegaly. Cardiovascular: Regular rate and rhythm without murmurs, gallops, or rubs. Lungs: Clear to auscultation bilaterally. No wheezes, rhonchi, or rales. Abdomen: Soft, without tenderness to palpation in all 4 quadrants of the abdomen. No guarding, rebound, or rigidity. Normal bowel sounds are audible. No tenderness on palpation of McBurney's point. The patient has a Fernandez catheter in place. The patient's urethra and insertion site were examined. The patient has no bleeding noted around the insertion site. The patient has urine output noted into the Fernandez catheter bag. It is grossly bloody. Extremities: No clubbing or cyanosis. The patient has 2+ pitting edema bilateral lower extremities. He reports that this is actually improved compared to previously. 2+ pulses in all 4 extremities. Back: No costovertebral angle tenderness to palpation. Neurologic Exam: Grossly nonfocal. Skin Exam: No rash noted. Intact skin that is warm and dry. Data Data Last Documented VS Vital Signs Date Time Temp Pulse Resp B/P (MAP) Pulse Ox O2 Delivery O2 Flow Rate FiO2 01/08/18 23:01 99 18 01/08/18 22:56 98.5 117/68 (84) 94 Orders Orders Complete Blood Count With Diff (01/08/18 23:17) Basic Metabolic Panel (Bmp) (01/08/18 23:17) Prothrombin Time / Inr (Pt) (01/08/18 23:17) Act Partial Throm Time (Ptt) (01/08/18 23:17) Urinalysis - C+S If Indicated (01/08/18 23:17) Iv Access Insert/Monitor (01/08/18 23:17) Ecg Monitoring (01/08/18 23:17) Oximetry (01/08/18 23:17) Ct Abd/Pel W/O Iv Contrast (01/08/18 23:27) Urine Culture (01/08/18 23:22) Ceftriaxone Inj (Rocephin Inj) (01/09/18 00:30) Phenazopyridine (Pyridium) (01/09/18 00:30) Labs Laboratory Tests Test 01/08/18 23:22 White Blood Count 2.9 TH/MM3 Red Blood Count 2.51 MIL/MM3 Hemoglobin 9.6 GM/DL Hematocrit 28.2 % Mean Corpuscular Volume 112.4 FL Mean Corpuscular Hemoglobin 38.4 PG Mean Corpuscular Hemoglobin Concent 34.1 % Red Cell Distribution Width 20.3 % Platelet Count 42 TH/MM3 Mean Platelet Volume 8.4 FL Neutrophils (%) (Auto) 81.7 % Lymphocytes (%) (Auto) 10.6 % Monocytes (%) (Auto) 7.2 % Eosinophils (%) (Auto) 0.2 % Basophils (%) (Auto) 0.3 % Neutrophils # (Auto) 2.3 TH/MM3 Lymphocytes # (Auto) 0.3 TH/MM3 Monocytes # (Auto) 0.2 TH/MM3 Eosinophils # (Auto) 0.0 TH/MM3 Basophils # (Auto) 0.0 TH/MM3 CBC Comment AUTO DIFF Differential Total Cells Counted 100 Neutrophils % (Manual) 83 % Band Neutrophils % 4 % Lymphocytes % 5 % Monocytes % 8 % Neutrophils # (Manual) 2.5 TH/MM3 Differential Comment FINAL DIFF MANUAL Platelet Estimate LOW Platelet Morphology Comment NORMAL Target Cells 1+ Ovalocytes 1+ Acanthocytes OCC Keratocytes OCC Prothrombin Time 19.7 SEC Prothromb Time International Ratio 1.9 RATIO Activated Partial Thromboplast Time 33.9 SEC Urine Color DARK-BROWN Urine Turbidity HAZY Urine pH 6.0 Urine Specific [place] 1.021 Urine Protein 100 mg/dL Urine Glucose (UA) NEG mg/dL Urine Ketones TRACE mg/dL Urine Occult Blood LARGE Urine Nitrite NEG Urine Bilirubin SMALL Urine Urobilinogen 2.0 MG/DL Urine Leukocyte Esterase MOD Urine RBC /hpf Urine WBC /hpf Urine Squamous Epithelial Cells 1 /hpf Urine Amorphous Sediment RARE Urine Bacteria RARE /hpf Urine Mucus MANY /lpf Microscopic Urinalysis Comment CULTURE INDICATED Blood Urea Nitrogen 26 MG/DL Creatinine 1.16 MG/DL Random Glucose 156 MG/DL Calcium Level 8.4 MG/DL Sodium Level 139 MEQ/L Potassium Level 4.4 MEQ/L Chloride Level 102 MEQ/L Carbon Dioxide Level 27.8 MEQ/L Anion Gap 9 MEQ/L Estimat Glomerular Filtration Rate 63 ML/MIN [facility] Medical Decision Making Medical Screen Exam Complete: Yes Emergency Medical Condition: Yes Medical Record Reviewed: Yes Differential Diagnosis Urethral trauma, versus bladder mass, versus other urethral mass, versus hemorrhagic cystitis Narrative Course During the course of the patient's emergency department visit, the patient's history, examination, and differential diagnosis were reviewed with the patient. The patient was placed on a historical manuscripts curator with oximetry and frequent blood pressure monitoring. The patient had IV access obtained and blood work sent for analysis. A CT scan of the abdomen and pelvis without contrast was ordered. The patient was initially provided Rocephin 1 g IV when urinalysis showed pyuria in addition to hematuria. Pyridium was given 1 for pain. The patient's laboratory studies were reviewed and remarkable for a white count of 2.9, hemoglobin 9.6, platelets 42 which is compared to previous studies and reveals that the hemoglobin is stable compared to 8.6 on November 21, platelets previously were 52. Basic metabolic profile is remarkable for BUN of 26, glucose 156, calcium 8.4, PT 19.7, INR 1.9 which is similar to previous coagulopathy, PTT 33.9, urinalysis shows trace ketones large occult blood small bilirubin, moderate leukocyte esterase innumerable RBCs innumerable WBCs, rare bacteria. Culture indicated. The patient initially agreed to imaging being done, however he then refused to have CAT scan done when the cable television technician arrived to take the patient just CAT scan. The patient reports that he needs to leave now as his daughter is coming to visit him and he has not seen her for a year and a half. He is requesting discharge. I explained that this is the last piece of his evaluation. I suspect that the patient has hematuria related to the placement of the catheter from his coagulopathy and thrombocytopenia. The patient has had good urine output in the emergency department without any signs of retention related to blood clots. As the patient refuses CT the patient will be discharged back to his care home facility. The patient is given the name of the urologist national coverage specialist for follow-up regarding his urinary retention and hematuria. The patient will be discharged to his care home facility with a prescription for antibiotic and Pyridium. The patient is resting comfortably and feels better, is alert and in no distress. The patient's results and examination findings were discussed with the patient. The repeat examination is unremarkable and benign. The history, exam, diagnostic testing, and current condition do not suggest any significant pathology to warrant further testing, continued ED treatment, admission, or surgical evaluation at this point. The vital signs have been stable. The patient does not have uncontrollable pain, intractable vomiting, or other significant symptoms. The patient's condition is stable and appropriate for discharge. The patient will pursue further outpatient evaluation with a primary care physician or other designated or consulting physician as indicated in the discharge instructions. The patient expressed understanding and was agreeable with this plan. Diagnosis Primary Impression: Hematuria Qualified Codes: R31.0 - Gross hematuria Additional Impressions: Thrombocytopenic Coagulopathy Referrals: Nelson Bueno DO call for appointment Patient Instructions: General Instructions, Hematuria (ED), Urinary Retention in Men (ED) Med/Other Pt SpecificInfo: Prescription(s) given Scripts Phenazopyridine (Pyridium) 100 Mg Tab 100 MG PO Q8H Y for DYSURIA, #12 TAB 0 Refills Prov: Lizett Del Rosario MD 01/09/18 Cephalexin (Keflex) 500 Mg Capsule 500 MG PO Q8H for Infection, #30 CAP 0 Refills Prov: Lizett Del Rosario MD 01/09/18 Disposition: 03 DISCHARGE TO SNF Condition: Stable Lizett Del Rosario MD Jan 08, 2018 23:25
[2018-01-08 23:54] LABS: AUTOMATED NEUTROPHIL # 2.3 TH/MM3 (1.8-7.7); BASOPHIL % 0.3 % (0.0-2.0); EOSINOPHIL % 0.2 % (0.0-4.0); HEMATOCRIT 28.2 % (39.0-51.0); HEMOGLOBIN 9.6 GM/DL (13.0-17.0); LYMPH % 10.6 % (9.0-44.0); LYMPHOCYTE # 0.3 TH/MM3 (1.0-4.8); MEAN CELL VOLUME 112.4 FL (80.0-100.0); MEAN CORPUSCULAR HEMOGLOBIN 38.4 PG (27.0-34.0); MEAN CORPUSCULAR HGB CONC 34.1 % (32.0-36.0); MEAN PLATELET VOLUME 8.4 FL (7.0-11.0); MONO % 7.2 % (0.0-8.0); MONOCYTE # 0.2 TH/MM3 (0-0.9); NEUT % 81.7 % (16.0-70.0); PLATELET COUNT 42 TH/MM3 (150-450); RED BLOOD COUNT 2.51 MIL/MM3 (4.50-5.90); RED CELL DISTRIBUTION WIDTH 20.3 % (11.6-17.2); WHITE BLOOD COUNT 2.9 TH/MM3 (4.0-11.0)
[2018-01-08 23:57] LABS: AMORPHOUS SEDIMENT, URINE RARE; BACTERIA, URINE RARE /hpf; BILIRUBIN, URINE SMALL (NEG); BLOOD, URINE LARGE (NEG); GLUCOSE,URINE NEG (NEG); KETONE, URINE TRACE mg/dL (NEG); MUCUS URINE MANY /lpf (OCC); NITRITE,URINE NEG (NEG); SQUAMOUS EPITHELIAL CELL URINE 1 /hpf (0-5); URINE LEUKOCYTE ESTERASE MOD (NEG)
[2018-01-08 23:58] LABS: INTERNATIONAL NORMALIZED RATIO 1.9 RATIO; PROTHROMBIN TIME - PATIENT 19.7 SEC (9.8-11.6)
[2018-01-08 23:59] LABS: URINE COLOR DARK-BROWN (YELLW/STRAW)
[2018-01-09 00:20] LABS: BICARBONATE 27.8 MEQ/L (21.0-32.0); CALCIUM 8.4 MG/DL (8.5-10.1); CREATININE 1.16 MG/DL (0.60-1.30)
[2018-01-09 00:24] LABS: BANDS 4 % (0-6); LYMPHOCYTES 5 % (9-44); MONOCYTES 8 % (0-8); NEUTROPHIL # MANUAL DIFF 2.5 TH/MM3 (1.8-7.7); POLYS (SEG NEUTROPHILS) 83 % (16-70)
[2018-01-09 00:25] LABS: ACANTHOCYTES OCC (NORMAL); OVALOCYTES 1+ (NORMAL); TARGET CELLS 1+ (NORMAL)
[2018-01-09 00:27] LABS: KERATOCYTES OCC (NORMAL)
[2018-01-09] MEDS ORDERED: cefTRIAXone INJ 1,000 MG in SODIUM CHLORIDE 0.9% INJ 100 ML IV ONE (00:30)
[2018-01-09] MEDS ORDERED: PHENAZOPYRIDINE HCL 200 MG TAB PO ONE (00:30)
[2018-01-09] MEDS ORDERED: CEPH-460 PO (02:11)
[2018-01-09] MEDS ORDERED: PHEN0.4T PO (02:11)
[2018-01-09 05:39] VITALS: O2SAT 100
[2018-01-09 05:43] VITALS: BP 127/57; PULSE 96; RESP 18; O2SAT 95
== END 2018-01-09 07:50 ==
LOC: NEPE 22:34
DX: R31.0 Gross hematuria (principal); D69.6 Thrombocytopenia, unspecified; D68.9 Coagulation defect, unspecified
CPT/HCPCS: 80048; 81001; 85007; 85027; 85610; 85730; 87077; 87086; 87186; 96374; 99284; J0696